=== PATIENT | male | born 1960 | race Caucasian/White ===

== ENCOUNTER → 2016-11-13 | Outpatient (CLI) | payer BC, OTHER ==
[~2016-11-13] MED LIST: ASPI1TAB66 PO; ATEN-175 PO; CHOL2000 PO; CZR50 PO; EZET10TA63 PO; GLCSC750600 PO; GLIM2TAB2 PO; GLUC1TAB59 PO; INDA1TAB3 PO; LOSA50TA6 PO; MULT-513 PO; NAPR1TAB9 PO; OMEG10007 PO; ONDA4TAB10 SL; OXYC-57 PO; TAMS0.4C38 PO
[2016-11-13 18:01] LABS: THYROID STIMULATING HORMONE 2.65 uIu/ml (0.300-4.500)
== END | disposition home or self-care (01) ==
LOC: C.LABBFT 15:00
PROVIDERS: ATTEND Internal Medicine
DX: E03.9 Hypothyroidism, unspecified (principal)

== ENCOUNTER → 2016-12-25 | Outpatient (CLI) | payer BC ==
[2016-12-25 17:14] LABS: BASO % 0.3 %; BASO ABS # 0.03 K/uL (0-0.2); COMPLETE YES; EOS % 1.6 %; HEMATOCRIT 35.6 % (42-52); IG% 0.3 %; LYMPH % 20.6 %; LYMPH ABS # 1.94 K/uL (1.2-3.4); MEAN CELL VOLUME 83.6 fL (80-100); MEAN CORPUSCULAR HEMOGLOBIN 29.3 pg (25-34); MEAN CORPUSCULAR HGB CONC 35.1 g/dl (32-36); MEAN PLATELET VOLUME 11.7 fL (7.4-10.4); MONO % 6.9 %; NEUT % 70.3 %; PLATELET COUNT 223 K/uL (130-400); RED BLOOD COUNT 4.26 M/uL (4.7-6.1); WHITE BLOOD COUNT 9.43 K/uL (4.8-10.8)
[2016-12-25 17:33] LABS: ALT/SGPT 48 U/L (12-78); BLOOD UREA NITROGEN 19 mg/dl (7-18); CALCIUM 9.1 mg/dl (8.5-10.1); CARBON DIOXIDE 29 mmol/L (21-32); CHLORIDE 103 mmol/L (98-107); CHOLESTEROL 171 mg/dl (0-200); CREATININE 0.92 mg/dl (0.60-1.40); GLUCOSE 133 mg/dl (70-99); POTASSIUM 3.9 mmol/L (3.5-5.1); SODIUM 141 mmol/L (136-145); TRIGLYCERIDES 176 mg/dl (0-150); VERY LOW DENSITY LIPOPROT CALC 35 mg/dl
[2016-12-25 17:42] LABS: ALB/GLOB RATIO 1.1 (0.9-2); ALKALINE PHOSPHATASE 80 U/L (45-117); AST/SGOT 41 U/L (15-37); CHOLESTEROL/HDL RATIO 4.9; HDL CHOLESTEROL 35 mg/dl; LDL CHOLESTEROL CALCULATED 101 mg/dl
[2016-12-25 18:03] LABS: RATIO 68.4 mcg/mg (0-30.0)
[2016-12-26 05:59] LABS: ESTIMATED AVERAGE GLUCOSE 200 mg/dl; HA1C FLAG Normal (Normal)
== END | disposition home or self-care (01) ==
LOC: C.LABBFT 14:30
PROVIDERS: ATTEND Internal Medicine
DX: E03.9 Hypothyroidism, unspecified (principal); D64.9 Anemia, unspecified; E11.65 Type 2 diabetes mellitus with hyperglycemia

== ENCOUNTER 2017-04-03 06:13 | Emergency (ER) | payer BC ==
[~2017-04-03] VITALS: Ht 180.3 cm; Wt 175.8 kg
[~2017-04-03 06:13] MED LIST changes: -GLUC1TAB59 PO; -LOSA50TA6 PO; -ONDA4TAB10 SL; -OXYC-57 PO; -TAMS0.4C38 PO
[2017-04-03 06:19] VITALS: TEMP 36.6; Ht 180.3 cm; Wt 175.8 kg
[2017-04-03] MEDS ORDERED: LOSA50TA6 PO (06:44)
[2017-04-03] MEDS ORDERED: GLUC1TAB59 PO (06:44)
[2017-04-03] MEDS ORDERED: ONDANSETRON INJ 2 MG/ML 2 ML VIAL IV STA (06:46)
[2017-04-03] MEDS ORDERED: KETOROLAC TROMETHAMINE 30 MG/ML VIAL IV STA (06:46)
[2017-04-03] MEDS ORDERED: SODIUM CHLORIDE 0.9% 1000ML 1,000 ML IV STA (06:46)
[2017-04-03 07:00] LABS: BASO % 0.2 %; BASO ABS # 0.02 K/uL (0-0.2); COMPLETE YES; EOS % 0.9 %; HEMATOCRIT 39.7 % (42-52); IG% 0.3 %; LYMPH % 12.4 %; LYMPH ABS # 1.47 K/uL (1.2-3.4); MEAN CELL VOLUME 84.3 fL (80-100); MEAN CORPUSCULAR HGB CONC 33.2 g/dl (32-36); MEAN PLATELET VOLUME 10.8 fL (7.4-10.4); MONO % 5.7 %; NEUT % 80.5 %; PLATELET COUNT 194 K/uL (130-400); RED BLOOD COUNT 4.71 M/uL (4.7-6.1); WHITE BLOOD COUNT 11.85 K/uL (4.8-10.8)
[2017-04-03 07:01] LABS: URINE APPEARANCE CLEAR (CLEAR); URINE BILIRUBIN NEG (NEG); URINE COLOR YELLOW; URINE NITRITE NEG (NEG); URINE PH 5.5 (4.5-7.5); URINE SPECIFIC GRAVITY 1.024 (1.000-1.030); UROBILINOGEN NEG (NEG); ZZUR CULT IF INDIC CLEAN CATCH NO
[2017-04-03 07:02] LABS: MANUAL MICROSCOPIC REQUIRED? NO; REVIEW REQ? NO
[2017-04-03 07:09] LABS: ALT/SGPT 45 U/L (12-78); AST/SGOT 40 U/L (15-37); BLOOD UREA NITROGEN 25 mg/dl (7-18); BUN/CREATININE RATIO 18.9 (10-20); CALCIUM 9.6 mg/dl (8.5-10.1); CARBON DIOXIDE 27 mmol/L (21-32); CHLORIDE 104 mmol/L (98-107); GLUCOSE 198 mg/dl (70-99); POTASSIUM 4.2 mmol/L (3.5-5.1); SODIUM 138 mmol/L (136-145)
[2017-04-03 07:12] LABS: ALKALINE PHOSPHATASE 87 U/L (45-117)
--- NOTE | 2017-04-03 07:29 | DIAGNOSTIC IMAGING REPORT ---
ABD/PELVIS WITHOUT FOR STONE HISTORY:56 [place] pain COMPARISON: None available. TECHNIQUE: Multiple axial CT images of the abdomen and pelvis were obtained without the use of IV contrast. FINDINGS: Morbid obesity is noted with portions of the patient's anatomy outside the field of view. The lung bases are clear. There is no gross pneumoperitoneum. Coronary arterial calcifications are partially imaged. The liver is enlarged and there is diffuse fatty infiltration. The spleen and adrenal glands are unremarkable. There is moderate pancreatic atrophy. Multiple layering gallstones are seen within the gallbladder lumen extending into the neck without CT evidence of acute cholecystitis. No biliary ductal dilatation is identified. There is a 5 x 6 x 6 mm stone within the mid left ureter at level of L5-S1. Additionally, there is a 7 x 5 x 7 mm calculus of the distal left ureter just proximal to the ureterovesicular junction. These stones cause associated mild to moderate obstructive uropathy. There are multiple additional stones bilaterally with approximately 5 on the left measuring up to 8 mm in approximately 5 on the right measuring up to 9 mm. Urinary bladder is collapsed. There is atherosclerosis of the aorta. There is no bowel obstruction. Scattered noninflamed colonic diverticula are noted. The appendix appears normal. Soft tissues are unremarkable. Multilevel discogenic degeneration and facet arthropathy is present of the spine. IMPRESSION: 1. There are two stones within the left ureter, a 6 mm calculus within the mid left ureter and a 7 mm calculus of the distal left ureter just proximal to the ureterovesicular junction causing mild to moderate obstructive uropathy. 2. Multiple additional nonobstructing renal calculi are present bilaterally as above. 3. Colonic diverticulosis without diverticulitis. 4. Hepatosteatosis with hepatomegaly. 5. Cholelithiasis. The above report was generated using voice recognition software. It may contain grammatical, syntax or spelling errors. Electronically signed by: Marito Ho 04/03/2017 7:27 AM Dictated Date/Time: 04/03/2017 7:17 AM
[2017-04-03] MEDS ORDERED: TAMS0.4C38 PO (08:38)
[2017-04-03] MEDS ORDERED: ONDA4TAB10 SL (08:38)
[2017-04-03] MEDS ORDERED: OXYC-57 PO (08:38)
--- NOTE | 2017-04-03 08:43 | EMERGENCY ROOM VISIT NOTE ---
History Report prepared by Cici: Tammy Underwood Under the Supervision of: Dr. Merrick Israel D.O. First contact with patient: 06:38 Chief Complaint: ABDOMINAL PAIN Stated Complaint: ABD PAIN Nursing Triage Summary: Pt started with lower left sided abdomen/flank pain yesterday evening radiates to back, continued throughout night. Pt states it feels like a kidney stone. History of Present Illness The patient is a 56 year old male who presents to the Emergency Room with complaints of constant left sided abdominal pain starting yesterday. He has pain radiation to the left flank. He has worsening pain with lying down and sitting. He denies any worsening pain with movement. He has a history of similar pain occurring about a week ago. He also reports decreased urinary output. The patient has a history of kidney stones but notes his current pain is different. He denies fevers, nausea, vomiting, rashes, or any other complaints. Source of History: patient Onset: yesterday Position: abdomen (left sided ) Timing: constant Modifying Factors (Worsening): other (lying down and sitting) Associated Symptoms: + urinary symptoms (decreased urinary output), No fevers, No nausea, No vomiting, No rash Review of Systems See HPI for pertinent positives & negatives. A total of 10 systems reviewed and were otherwise negative. Past Medical & Surgical Medical Problems: (1) DIAB ROBINSON WO COMPL, TYPE II OR UNSPEC TYPE, NOT UNCNTRLD (2) HYPERLIPIDEMIA NEC/NOS (3) Morbid obesity Family History Diabetes mellitus Heart disease Hypertension Kidney disease Kidney stones Social History Smoking Status: Never Smoker Alcohol Use: none Marital Status: Housing Status: lives with family Occupation Status: employed Current/Historical Medications Scheduled Aspirin (Ec-81 Aspirin), 81 TAB PO AMPM Atenolol (Tenormin), 100 MG PO QAM Cholecalciferol (Vitamin D3), 2,000 MG PO QPM Ezetimibe (Zetia), 10 MG PO QPM Fish Oil ([place]-3), 1 CAP PO BID Glimepiride (Glimepiride), 1 TAB PO BID Glucosamine-Chondroitin (Ra Glucosamine/Chondroiti 750-600 mg), 1 TAB PO BID Indapamide (Lozol), 1.25 MG PO QAM Losartan Potassium (Cozaar), 50 MG PO QAM Multivitamins/Minerals (Mvi With Minerals), 1 TAB PO QAM Naproxen (Aleve), 220 MG PO BID Ondasetron Odt (Zofran Odt), 4 MG SL Q6H Tamsulosin Hcl (Flomax), 0.4 MG PO HS Scheduled PRN Oxycodone/Acetaminophen 5MG/325MG (Percocet 5MG/325MG), 1 TAB PO Q6H PRN for Pain Allergies Coded Allergies: Fabric Softeners (Verified Allergy, Unknown, "SNUGGLES"-COULDN'T REMEMBER , 04/03/17) Metformin (Verified Adverse Reaction, Unknown, DIARRHEA, 04/03/17) Mometasone (Verified Adverse Reaction, Unknown, NOSE BLEEDS;DRYNESS, ) Simvastatin (Verified Adverse Reaction, Unknown, COUGH, 04/03/17) Physical Exam Vital Signs Date Time Temp Pulse Resp B/P (MAP) Pulse Ox O2 Delivery O2 Flow Rate FiO2 04/03/17 07:28 66 18 151/78 97 Room Air 04/03/17 06:19 36.6 69 20 200/88 95 Room Air Physical Exam CONSTITUTIONAL/VITAL SIGNS: Reviewed / noted above. GENERAL: Non-toxic in appearance. INTEGUMENTARY: Warm, dry, and [place]. HEAD: Normocephalic. EYES: without scleral icterus or trauma. ENT/OROPHARYNX: clear and moist. LYMPHADENOPATHY/NECK: Is supple without lymphadenopathy or meningismus. RESPIRATORY: Lungs clear and equal. CARDIOVASCULAR: Regular rate and rhythm. GI/ABDOMEN: Soft and nontender. No organomegaly or pulsatile mass. No rebound or guarding. Normal bowel sounds. EXTREMITIES: Warm and well perfused. BACK: No CVA tenderness. NEUROLOGICAL: Intact without focal deficits. PSYCHIATRIC: normal affect. MUSCULOSKELETAL: Normally developed with good muscle tone. Medical Decision & Procedures ER Provider Diagnostic Interpretation: CT results as stated below per my review and radiologist interpretation: ABD/PELVIS WITHOUT FOR STONE HISTORY:56 [place] pain COMPARISON: None available. TECHNIQUE: Multiple axial CT images of the abdomen and pelvis were obtained without the use of IV contrast. FINDINGS: Morbid obesity is noted with portions of the patient's anatomy outside the field of view. The lung bases are clear. There is no gross pneumoperitoneum. Coronary arterial calcifications are partially imaged. The liver is enlarged and there is diffuse fatty infiltration. The spleen and adrenal glands are unremarkable. There is moderate pancreatic atrophy. Multiple layering gallstones are seen within the gallbladder lumen extending into the neck without CT evidence of acute cholecystitis. No biliary ductal dilatation is identified. There is a 5 x 6 x 6 mm stone within the mid left ureter at level of L5-S1. Additionally, there is a 7 x 5 x 7 mm calculus of the distal left ureter just proximal to the ureterovesicular junction. These stones cause associated mild to moderate obstructive uropathy. There are multiple additional stones bilaterally with approximately 5 on the left measuring up to 8 mm in approximately 5 on the right measuring up to 9 mm. Urinary bladder is collapsed. There is atherosclerosis of the aorta. There is no bowel obstruction. Scattered noninflamed colonic diverticula are noted. The appendix appears normal. Soft tissues are unremarkable. Multilevel discogenic degeneration and facet arthropathy is present of the spine. IMPRESSION: 1. There are two stones within the left ureter, a 6 mm calculus within the mid left ureter and a 7 mm calculus of the distal left ureter just proximal to the ureterovesicular junction causing mild to moderate obstructive uropathy. 2. Multiple additional nonobstructing renal calculi are present bilaterally as above. 3. Colonic diverticulosis without diverticulitis. 4. Hepatosteatosis with hepatomegaly. 5. Cholelithiasis. The above report was generated using voice recognition software. It may contain grammatical, syntax or spelling errors. Electronically signed by: Marito Ho 04/03/2017 7:27 AM Dictated Date/Time: 04/03/2017 7:17 AM X ray results and stated below per my interpretation and radiology interpretation. KUB CLINICAL HISTORY: for stones nephrocalcinosis COMPARISON STUDY: 04/03/2017 FINDINGS: Bilateral nephrocalcinosis. Probable gallstones. Calcification appears described within the left ureter are suboptimally identified on this exam due to overlying bowel content. Bowel pattern is nonobstructive. IMPRESSION: Bilateral nephrocalcinosis. Gallstones. Nonobstructive bowel pattern. Suboptimal visibility of the course of the left ureter due to overlying bowel content. Electronically signed by: Rory Milan M.D. 04/03/2017 8:54 AM Dictated Date/Time: 04/03/2017 8:50 AM Laboratory Results 04/03/17 06:35 Red Blood Count 4.71, Mean Corpuscular Volume 84.3, Mean Corpuscular Hemoglobin 28.0, Mean Corpuscular Hemoglobin Concent 33.2, Mean Platelet Volume 10.8, Neutrophils (%) (Auto) 80.5, Lymphocytes (%) (Auto) 12.4, Monocytes (%) (Auto) 5.7, Eosinophils (%) (Auto) 0.9, Basophils (%) (Auto) 0.2, Neutrophils # (Auto) 9.55, Lymphocytes # (Auto) 1.47, Monocytes # (Auto) 0.67, Eosinophils # (Auto) 0.11, Basophils # (Auto) 0.02 04/03/17 06:35 Test 04/03/17 06:35 White Blood Count 11.85 K/uL (4.8-10.8) Red Blood Count 4.71 M/uL (4.7-6.1) Hemoglobin 13.2 g/dL (14.0-18.0) Hematocrit 39.7 % (42-52) Mean Corpuscular Volume 84.3 fL (80-100) Mean Corpuscular Hemoglobin 28.0 pg (25-34) Mean Corpuscular Hemoglobin Concent 33.2 g/dl (32-36) Platelet Count 194 K/uL (130-400) Mean Platelet Volume 10.8 fL (7.4-10.4) Neutrophils (%) (Auto) 80.5 % Lymphocytes (%) (Auto) 12.4 % Monocytes (%) (Auto) 5.7 % Eosinophils (%) (Auto) 0.9 % Basophils (%) (Auto) 0.2 % Neutrophils # (Auto) 9.55 K/uL (1.4-6.5) Lymphocytes # (Auto) 1.47 K/uL (1.2-3.4) Monocytes # (Auto) 0.67 K/uL (0.11-0.59) Eosinophils # (Auto) 0.11 K/uL (0-0.5) Basophils # (Auto) 0.02 K/uL (0-0.2) RDW Standard Deviation 41.9 fL (36.4-46.3) RDW Coefficient of Variation 13.6 % (11.5-14.5) Immature Granulocyte % (Auto) 0.3 % Immature Granulocyte # (Auto) 0.03 K/uL (0.00-0.02) Urine Color YELLOW Urine Appearance CLEAR (CLEAR) Urine pH 5.5 (4.5-7.5) Urine Specific [place] 1.024 (1.000-1.030) Urine Protein NEG (NEG) Urine Glucose (UA) NEG (NEG) Urine Ketones NEG (NEG) Urine Occult Blood 1+ (NEG) Urine Nitrite NEG (NEG) Urine Bilirubin NEG (NEG) Urine Urobilinogen NEG (NEG) Urine Leukocyte Esterase NEG (NEG) Urine WBC (Auto) 1-5 /hpf (0-5) Urine RBC (Auto) 0-4 /hpf (0-4) Urine Hyaline Casts (Auto) 1-5 /lpf (0-5) Urine Epithelial Cells (Auto) 5-10 /lpf (0-5) Urine Bacteria (Auto) NEG (NEG) Anion Gap 7.0 mmol/L (3-11) Est Creatinine Clear Calc Drug Dose 103.6 ml/min Estimated GFR () 70.7 Estimated GFR (Non- 61.0 BUN/Creatinine Ratio 18.9 (10-20) Calcium Level 9.6 mg/dl (8.5-10.1) Total Bilirubin 0.5 mg/dl (0.2-1) Direct Bilirubin < 0.1 mg/dl (0-0.2) Aspartate Amino Transf (AST/SGOT) 40 U/L (15-37) Alanine Aminotransferase (ALT/SGPT) 45 U/L (12-78) Alkaline Phosphatase 87 U/L (45-117) Total Protein 7.6 gm/dl (6.4-8.2) Albumin 4.0 gm/dl (3.4-5.0) Lipase 150 U/L (73-393) Laboratory results as stated above per my review. Medications Administered Medications (Trade) Dose Ordered Sig/Melvi Route Start Time Stop Time Status Last Admin Dose Admin Sodium Chloride 1,000 ml @ 999 mls/hr Q1H1M STAT IV 04/03/17 06:46 04/03/17 07:46 DC 04/03/17 06:55 999 MLS/HR Ondansetron HCl (Zofran Inj) 4 mg NOW STAT IV 04/03/17 06:46 04/03/17 06:50 DC 04/03/17 06:55 4 MG Ketorolac Tromethamine (Toradol Inj) 30 mg NOW STAT IV 04/03/17 06:46 04/03/17 06:50 DC 04/03/17 06:55 30 MG ED Course 0638: Previous medical records were reviewed. The patient was evaluated in room B10. A complete history and physical examination was performed. 0646: Toradol Inj 30 mg IV, Zofran Inj 4 mg IV, Sodium Chloride 1000 ml @ 999 mls/hr IV 0757: I reevaluated the patient. He currently denies any pain. 0816: I discussed the patient's case with Dr. Lara, urologist with [facility]. He recommended having the patient follow up as an outpatient. 0822: On reevaluation, the patient is resting comfortably. I discussed the results and findings with the patient. He verbalized agreement of the treatment plan. He was discharged home. Medical Decision Medication Reconciliation: I attest that I have personally reviewed the patient' s current medication list. Blood pressure Screening: Patient was found to have an elevated blood pressure and was referred to their primary doctor for recheck and further treatment. Differential considered: pancreatitis, hepatitis, or acute cholecystitis, AAA, UTI, pyelonephritis, kidney stones, appendicitis, diverticulitis, shingles, bowel obstruction mesenteric ischemia, intussusception,hernia, testicular torsion. This is a 56 her old male who presents to the ED with a chief complaint of left flank pain. The patient states he had some flank component but a week ago and then again had some last night. He states that his pain is mild to moderate. He has also reported some decreased urination. Nothing makes his symptoms worse but it seemed to be improved with walking. Initial blood pressure 200/ 88. Repeat blood pressure was 151/78. Patient's elevated blood pressure was probably due to pain. His CBC is unremarkable. BUN is 25, urine did not show infection. A CT scan reveals a 7 mm distal ureteral stone and a 6 mm midureteral stone on the left. These are causing some moderate obstructive changes. The patient was treated with IV Toradol and IV Zofran as well as IV fluids. His symptoms did improve with this. I spoke with Dr. Lara about the patient. He will have the patient follow-up as an outpatient. The patient will be discharged on pain medication, nausea medication and Flomax. A KUB was also done per request of Dr. Lara. Consults Time Called: 0759 Consulting Physician: Dr. Lara, urologist with [facility] Returned Call: 0816 I discussed the patient's case with Dr. Lara, urologist with [facility]. He recommended having the patient follow up as an outpatient. Impression Primary Impression: Kidney stone Additional Impressions: Renal colic on left side Ureteral stone Hydronephrosis Scribe Attestation The scribe's documentation has been prepared under my direction and personally reviewed by me in its entirety. I confirm that the note above accurately reflects all work, treatment, procedures, and medical decision making performed by me. Departure Information Dispostion Home / Self-Care Prescriptions Oxycodone/Acetaminophen 5MG/325MG (PERCOCET 5MG/325MG) Tab 1 TAB PO Q6H Y for Pain, #20 TAB Prov: Merrick Israel D.O. 04/03/17 Ondasetron Odt (ZOFRAN ODT) 4 Mg Tab 4 MG SL Q6H for Nausea, #10 TAB Prov: Merrick Israel D.O. 04/03/17 Tamsulosin Hcl (FLOMAX) 0.4 Mg Cap 0.4 MG PO HS, #15 CAP Prov: Merrick Israel D.O. 04/03/17 Referrals Bashir Alegre M.D. (PCP) Lamonte Lara MD, Urology Forms Call Back Authorization, HOME CARE DOCUMENTATION FORM, IMPORTANT VISIT INFORMATION Patient Instructions My [facility] Additional Instructions Follow-up with your doctor for further care and evaluation in 1-2 days. Return to the emergency department for worsening or new symptoms or any concerns. You have been examined and treated today on an emergency basis only. This is not a substitute for, or an effort to provide, complete comprehensive medical care. It is impossible to recognize and treat all injuries or illnesses in a single emergency department visit. It is therefore important that you follow up closely with your doctor. Call as soon as possible for an appointment. Percocet as prescribed. No driving within 6 hours of use. Do not take additional Tylenol while taking Percocet. Zofran: Allow one tablet to dissolve under the tongue every 6 hours as needed for nausea or vomiting. Take ibuprofen 600 mg every 6 hours as needed for pain. Flomax as prescribed. Strain urine for stone. Follow-up with Dr. Lara/urology. Call today for an appointment. Problem Qualifiers
--- NOTE | 2017-04-03 08:55 | DIAGNOSTIC IMAGING REPORT ---
KUB CLINICAL HISTORY: for stones nephrocalcinosis COMPARISON STUDY: 04/03/2017 FINDINGS: Bilateral nephrocalcinosis. Probable gallstones. Calcification appears described within the left ureter are suboptimally identified on this exam due to overlying bowel content. Bowel pattern is nonobstructive. IMPRESSION: Bilateral nephrocalcinosis. Gallstones. Nonobstructive bowel pattern. Suboptimal visibility of the course of the left ureter due to overlying bowel content. Electronically signed by: Rory Milan M.D. 04/03/2017 8:54 AM Dictated Date/Time: 04/03/2017 8:50 AM
[2017-04-03 08:59] VITALS: BP 172/77; PULSE 60; O2SAT 97
== END 2017-04-03 09:00 | disposition home or self-care (01) ==
LOC: C.EDB 06:14
DX: N13.2 Hydronephrosis with renal and ureteral calculous obstruction (principal); N23 Unspecified renal colic; E11.9 Type 2 diabetes mellitus without complications; E78.5 Hyperlipidemia, unspecified; E66.01 Morbid (severe) obesity due to excess calories; Z68.43 Body mass index [BMI] 50.0-59.9, adult; Z83.3 Family history of diabetes mellitus; Z82.49 Family history of ischemic heart disease and other diseases of the circulatory system; Z87.442 Personal history of urinary calculi; Z79.82 Long term (current) use of aspirin; Z79.899 Other long term (current) drug therapy

== ENCOUNTER → 2017-04-08 | Outpatient (CLI) | payer BC ==
[~2017-04-08] MED LIST changes: -CZR50 PO; -GLCSC750600 PO; +GLUC1TAB59 PO; +LOSA50TA6 PO; +ONDA4TAB10 SL; +OXYC-57 PO; +TAMS0.4C38 PO
== END | disposition home or self-care (01) ==
LOC: C.LABSPEC 17:23
PROVIDERS: ATTEND Urology
DX: N20.0 Calculus of kidney (principal)

== ENCOUNTER → 2017-04-30 | Outpatient (CLI) | payer BC ==
[~2017-04-30] MED LIST changes: -TAMS0.4C38 PO
--- NOTE | 2017-04-30 14:10 | DIAGNOSTIC IMAGING REPORT ---
KUB CLINICAL HISTORY: CALCULUS OF KIDNEY nephrocalcinosis COMPARISON STUDY: 04/03/2017 FINDINGS: Bilateral renal calcifications unchanged in size as well as number compared to the prior exam. Multiple gallstones. Nonobstructive bowel pattern. IMPRESSION: Bilateral nephrocalcinosis unchanged from the prior study. The above report was generated using voice recognition software. It may contain grammatical, syntax or spelling errors. Electronically signed by: Rory Milan M.D. 04/30/2017 2:08 PM Dictated Date/Time: 04/30/2017 2:07 PM
== END | disposition home or self-care (01) ==
LOC: C.RAD1850 13:54
PROVIDERS: ATTEND Urology
DX: N20.0 Calculus of kidney (principal)

== ENCOUNTER → 2017-05-28 | Outpatient (CLI) | payer BC ==
[2017-05-28 17:47] LABS: ALT/SGPT 45 U/L (12-78); AST/SGOT 34 U/L (15-37); BLOOD UREA NITROGEN 16 mg/dl (7-18); CALCIUM 9.5 mg/dl (8.5-10.1); CARBON DIOXIDE 28 mmol/L (21-32); CHLORIDE 104 mmol/L (98-107); CREATININE 0.97 mg/dl (0.60-1.40); GLUCOSE 115 mg/dl (70-99); POTASSIUM 3.7 mmol/L (3.5-5.1); SODIUM 139 mmol/L (136-145)
[2017-05-28 17:49] LABS: BASO % 0.2 %; BASO ABS # 0.02 K/uL (0-0.2); COMPLETE YES; EOS % 1.8 %; IG% 0.5 %; LYMPH % 21.9 %; MEAN CELL VOLUME 86.7 fL (80-100); MEAN CORPUSCULAR HEMOGLOBIN 29.4 pg (25-34); MEAN CORPUSCULAR HGB CONC 33.9 g/dl (32-36); MEAN PLATELET VOLUME 11.4 fL (7.4-10.4); MONO % 7.2 %; NEUT % 68.4 %; PLATELET COUNT 189 K/uL (130-400); RED BLOOD COUNT 4.15 M/uL (4.7-6.1); WHITE BLOOD COUNT 8.22 K/uL (4.8-10.8)
[2017-05-28 17:57] LABS: ALB/GLOB RATIO 1.1 (0.9-2); ALKALINE PHOSPHATASE 88 U/L (45-117); CHOLESTEROL 166 mg/dl (0-200); HDL CHOLESTEROL 33 mg/dl; LDL CHOLESTEROL CALCULATED 103 mg/dl; TRIGLYCERIDES 151 mg/dl (0-150); VERY LOW DENSITY LIPOPROT CALC 30 mg/dl
[2017-05-29 06:33] LABS: ESTIMATED AVERAGE GLUCOSE 189 mg/dl; HA1C FLAG Normal (Normal)
== END | disposition home or self-care (01) ==
LOC: C.LABBFT 13:40
PROVIDERS: ATTEND Internal Medicine
DX: E11.29 Type 2 diabetes mellitus with other diabetic kidney complication (principal)

== ENCOUNTER → 2017-09-24 | Outpatient (CLI) | payer BC ==
[2017-09-24 17:30] LABS: BASO % 0.2 %; BASO ABS # 0.02 K/uL (0-0.2); COMPLETE YES; EOS % 2.2 %; HEMATOCRIT 38.3 % (42-52); IG% 0.4 %; LYMPH % 20.3 %; MEAN CELL VOLUME 85.5 fL (80-100); MEAN CORPUSCULAR HEMOGLOBIN 29.2 pg (25-34); MEAN CORPUSCULAR HGB CONC 34.2 g/dl (32-36); MEAN PLATELET VOLUME 12.2 fL (7.4-10.4); MONO % 6.2 %; NEUT % 70.7 %; PLATELET COUNT 179 K/uL (130-400); RED BLOOD COUNT 4.48 M/uL (4.7-6.1); WHITE BLOOD COUNT 9.34 K/uL (4.8-10.8)
[2017-09-24 18:09] LABS: ALT/SGPT 43 U/L (12-78); BLOOD UREA NITROGEN 27 mg/dl (7-18); BUN/CREATININE RATIO 26.4 (10-20); CALCIUM 9.5 mg/dl (8.5-10.1); CARBON DIOXIDE 29 mmol/L (21-32); CHLORIDE 101 mmol/L (98-107); CHOLESTEROL 193 mg/dl (0-200); CREATININE 1.02 mg/dl (0.60-1.40); GLUCOSE 113 mg/dl (70-99); POTASSIUM 3.8 mmol/L (3.5-5.1); SODIUM 137 mmol/L (136-145); TRIGLYCERIDES 153 mg/dl (0-150); VERY LOW DENSITY LIPOPROT CALC 31 mg/dl
[2017-09-24 18:19] LABS: ALB/GLOB RATIO 1.2 (0.9-2); ALKALINE PHOSPHATASE 81 U/L (45-117); AST/SGOT 35 U/L (15-37); CHOLESTEROL/HDL RATIO 5.8; HDL CHOLESTEROL 33 mg/dl; LDL CHOLESTEROL CALCULATED 129 mg/dl; PROSTATE SPECIFIC ANTIGEN 0.577 ng/ml (0.000-4.000)
[2017-09-25 06:37] LABS: ESTIMATED AVERAGE GLUCOSE 186 mg/dl; HA1C FLAG Normal (Normal)
== END | disposition home or self-care (01) ==
LOC: C.LABBFT 13:57
PROVIDERS: ATTEND Internal Medicine
DX: E11.29 Type 2 diabetes mellitus with other diabetic kidney complication (principal); Z12.5 Encounter for screening for malignant neoplasm of prostate; D64.9 Anemia, unspecified; E03.9 Hypothyroidism, unspecified

== ENCOUNTER → 2017-11-16 | Outpatient (CLI) | payer BC ==
[~2017-11-16] MED LIST changes: -ONDA4TAB10 SL; -OXYC-57 PO
--- NOTE | 2017-11-16 10:01 | DIAGNOSTIC IMAGING REPORT ---
KUB CLINICAL HISTORY: Nephrolithiasis. FINDINGS: 2 AP supine abdominal radiographs are compared to study dated 04/30/2017 and correlated with abdominal CT dated 04/03/2017. Numerous calcified gallstones are seen in the right upper quadrant. There are numerous bilateral nonobstructing renal calculi. At least 2 stones are seen in the right kidney and at least 4 stones are seen in the left kidney. These measure up to 10 mm and have not significantly changed from 04/30/2017. There is no radiographic evidence of ureteral stone. No bowel obstruction is seen. The bony structures appear intact. IMPRESSION: 1. Bilateral nonobstructing renal calculi are not significantly changed from 04/30/2017. 2. Cholelithiasis. Electronically signed by: Bright Edwards M.D. 11/16/2017 10:00 AM Dictated Date/Time: 11/16/2017 9:59 AM
== END | disposition home or self-care (01) ==
LOC: C.RAD1850 09:09
PROVIDERS: ATTEND Urology
DX: N20.0 Calculus of kidney (principal)

== ENCOUNTER → 2018-01-20 | Outpatient (CLI) | payer BC ==
--- NOTE | 2018-01-20 14:27 | DIAGNOSTIC IMAGING REPORT ---
LUMBAR SPINE 7 VIEWS with flexion and extension HISTORY: LOWER BACK PAIN COMPARISON: KUB 11/16/2017. FINDINGS: There is no fracture. No subluxation. Bilateral nephrolithiasis is again noted. The sacrum is intact. Mild facet osteoarthritis throughout the lumbar spine. Minimal anterior wedging from T10 through T12 appears to be unchanged. This is likely chronic. Large anterior osteophytes within the lower thoracic and upper lumbar spine. Abnormal lucency at the T12-L1 disc space. This could represent a fracture through an osteophyte. This is nondisplaced. Moderate to space narrowing at L3-L4, L4-L5, and L5-S1 with associated small endplate osteophytes. Mild disc space narrowing at L2-L3. Vertebral body heights within the lumbar spine are intact. Alignment remains unchanged throughout flexion and extension. IMPRESSION: 1. Abnormal linear lucency overlying the T12-L1 disc space. This favors a nondisplaced fracture through an osteophyte. Dedicated lumbar spine CT is recommended for further evaluation. 2. Alignment remains intact throughout flexion and extension. 3. Degenerative changes as described above. 4. Bilateral nephrolithiasis. 5. These findings were called to the referring physician's office following dictation. Electronically signed by: Clayton Haddad M.D. 01/20/2018 2:26 PM Dictated Date/Time: 01/20/2018 2:21 PM
== END | disposition home or self-care (01) ==
LOC: C.RAD1850 13:17
PROVIDERS: ATTEND Internal Medicine
DX: M54.5 Low back pain (principal); N20.0 Calculus of kidney

== ENCOUNTER 2018-02-06 16:48 | Observation (INO) | payer BC ==
[~2018-02-06] VITALS: Ht 180.3 cm; Wt 176.7 kg
[2018-02-06] MEDS ORDERED: MELO7.5T5 PO (17:28)
[2018-02-06] MEDS ORDERED: CYAN10005 PO (17:28)
[2018-02-06] MEDS ORDERED: SITA100T3 PO (17:28)
[2018-02-06] MEDS ORDERED: INSDGIPEN SC (17:28)
[2018-02-06 17:53] LABS: BASO % 0.2 %; BASO ABS # 0.03 K/uL (0-0.2); EOS % 0.4 %; EOS ABS # 0.06 K/uL (0-0.5); HEMATOCRIT 37.8 % (42-52); HEMOGLOBIN 13.3 g/dL (14.0-18.0); IG# 0.05 K/uL (0.00-0.02); LYMPH % 9.2 %; LYMPH ABS # 1.29 K/uL (1.2-3.4); MEAN CORPUSCULAR HEMOGLOBIN 29.6 pg (25-34); MEAN CORPUSCULAR HGB CONC 35.2 g/dl (32-36); MEAN PLATELET VOLUME 10.9 fL (7.4-10.4); MONO % 4.9 %; MONO ABS # 0.68 K/uL (0.11-0.59); NEUT % 84.9 %; NEUT ABS # 11.89 K/uL (1.4-6.5); PLATELET COUNT 198 K/uL (130-400); RED CELL DISTRIBUTION WIDTH CV 13.6 % (11.5-14.5); RED CELL DISTRIBUTION WIDTH SD 41.1 fL (36.4-46.3)
[2018-02-06] MEDS ORDERED: MoRPHine SULFATE 4 MG/ML 1 ML CARP\\VIAL IV STA (18:24)
--- NOTE | 2018-02-06 18:24 | DIAGNOSTIC IMAGING REPORT ---
PELVIS NO IV/ORAL CONT (CT) HISTORY: 57 years-old Male Low back pain, radiating to R hip chronic low back pain with radiation into the right hip. No reported trauma. COMPARISON: CT abdomen and pelvis 04/03/2017, lumbar spine CT of same day. TECHNIQUE: Multiple axial CT images of the pelvis were obtained without the use of IV contrast. A dose lowering technique was used consistent with the principals of TOMMY. FINDINGS: Degenerative changes of the lumbar spine are discussed separately on the CT lumbar spine exam of same day. Moderate degenerative changes about the bilateral SI joints. No acute fracture or dislocation is identified. No sacral insufficiency fracture. Iliac bones, superior and inferior pubic rami appear intact. Subcortical cystic changes about the pubic symphysis. Mild osteoarthritis about the bilateral femoral acetabular joints. Bone mineralization is within normal limits. Atherosclerosis of the aortoiliac vasculature. Colonic diverticulosis without diverticulitis. Fecal material of the distal ileum suggests delayed bowel transit. The appendix is not visualized. No inflammatory changes or ascites of the pelvis. No pathologic adenopathy. The musculature and soft tissues appear to be within normal limits. IMPRESSION: 1. No acute fracture or dislocation. 2. Degenerative changes about the pelvis and bilateral hips as above. 3. Colonic diverticulosis without diverticulitis. The above report was generated using voice recognition software. It may contain grammatical, syntax or spelling errors. Electronically signed by: Marito Ho M.D. 02/06/2018 6:23 PM Dictated Date/Time: 02/06/2018 6:19 PM
[2018-02-06 18:26] LABS: ALBUMIN 3.9 gm/dl (3.4-5.0); CALCIUM 9.5 mg/dl (8.5-10.1); CREATININE 1.25 mg/dl (0.60-1.40); POTASSIUM 4.4 mmol/L (3.5-5.1)
[2018-02-06 18:29] LABS: TOTAL PROTEIN 8.3 gm/dl (6.4-8.2)
--- NOTE | 2018-02-06 18:37 | EMERGENCY ROOM VISIT NOTE ---
History First contact with patient: 16:51 Chief Complaint: BACK PAIN Stated Complaint: BACK PAIN History of Present Illness The patient is a 57 year old male who presents to the Emergency Room via private vehicle with complaints of "back pain". The patient states that he first developed back pain in early December. He states that it is been progressing and he is followed with Dr. Avila. He states that he has had x- rays which show degeneration and believe that this could be stemming from his weight. He notes that he has been doing well up until today when the back pain worsened when he was on the toilet. He could not remove himself from the toilet. Ambulance was called. He was brought here for evaluation. He was given morphine in route. He notes some relief of his pain. There is no chest pain or shortness of breath. No fevers or chills. No lower extremity weakness , bowel or bladder incontinence, numbness or tingling in the genital region. He points to the low back as the location of pain that radiates also to the right hip. Review of Systems A complete 10-point Review of Systems was discussed with the patient, with pertinent positives and negatives listed in the History of Present Illness. All remaining Review of Systems questions can be considered negative unless otherwise specified. Past Medical/Surgical History Medical Problems: (1) Back pain, acute (2) DIAB ROBINSON WO COMPL, TYPE II OR UNSPEC TYPE, NOT UNCNTRLD (3) HYPERLIPIDEMIA NEC/NOS (4) Morbid obesity Family History Diabetes mellitus Heart disease Hypertension Kidney disease Kidney stones Social History Smoking Status: Never Smoker Alcohol Use: none Marital Status: Housing Status: lives with family Occupation Status: employed Current/Historical Medications Scheduled Aspirin (Ec-81 Aspirin), 81 TAB PO AMPM Atenolol (Tenormin), 100 MG PO QAM Cholecalciferol (Vitamin D3), 2,000 MG PO QPM Cyanocobalamin (Vitamin B-12), 1,000 MCG PO DAILY Ezetimibe (Zetia), 10 MG PO QPM Fish Oil ([place]-3), 1 CAP PO DAILY Glimepiride (Glimepiride), 4 MG PO BID Glucosamine-Chondroitin (Ra Glucosamine/Chondroiti 750-600 mg), 1 TAB PO BID Indapamide (Lozol), 1.25 MG PO QAM Insulin Glargine (Lantus Solostar), 50 UNITS SC QAM Losartan Potassium (Cozaar), 50 MG PO QAM Meloxicam (Mobic), 7.5 MG PO DAILY Multivitamins/Minerals (Mvi With Minerals), 1 TAB PO QAM Sitagliptin Phosphate (Januvia), 100 MG PO DAILY Physical Exam Vital Signs Date Time Temp Pulse Resp B/P (MAP) Pulse Ox O2 Delivery O2 Flow Rate FiO2 02/06/18 21:59 65 18 144/78 98 Room Air 02/06/18 20:09 63 18 129/61 98 Room Air 02/06/18 18:39 66 02/06/18 18:31 98 Room Air 02/06/18 18:31 64 18 131/66 95 Room Air 02/06/18 16:57 37.0 69 18 157/71 91 Room Air Physical Exam VITAL SIGNS - Vital signs and nursing notes were reviewed. Stable. GENERAL -57-year-old male appearing his stated age who is in no acute distress. Communicates well with provider and answers questions appropriately. SKIN - Without rashes. No meningeal or petechial rash. HEAD - NC/AT. EYES - Sclera anicteric. EARS - No deformities of external structures noted on gross examination bilaterally. NOSE - Midline and without cyanosis. No epistaxis or purulent drainage noted. MOUTH/OROPHARYNX - Without perioral cyanosis. LUNGS - Chest wall symmetric without accessory muscle use, intercostals retractions, or central cyanosis. Normal vesicular breath sounds CTA B/L. No wheezes, rales, or rhonchi appreciated. CARDIAC - RRR with S1/S2. No murmur, rubs, or gallops appreciated. ABDOMEN - Abdominal contour normal without pulsations or visible masses. BS normoactive all four quadrants. No tenderness, palpable masses, hepatosplenomegaly, or ascites noted. MUSCULOSKELETAL: There is reproducible tenderness in the lower lumbar spine with palpation that extends into the musculature towards the right hip region. EXTREMITIES - +5/5 strength noted in UE/LE bilaterally. NEUROLOGIC - Cranial nerves II through XII grossly intact. Sensory intact to light touch throughout. PSYCH - A&O, and cooperates fully with examiner. Pt is very pleasant and interacts well with examiner. Medical Decision & Procedures ER Provider Diagnostic Interpretation: LUMBAR SPINE WITHOUT HISTORY: 57 years-old Male Low back pain, radiating to R hip chronic low back pain with radiation into the right hip COMPARISON: CT pelvis of same day TECHNIQUE: Multiple axial CT images of the lumbar spine were obtained without the use of IV contrast. A dose lowering technique was used consistent with the principals of ALARA. FINDINGS: Moderate degenerative changes about the bilateral SI joints. No acute fracture or subluxation. Multilevel degenerative changes as below. Atherosclerosis of the aorta without aneurysm. No pathologic adenopathy. Partially imaged cholelithiasis. Multiple nonobstructing nephrolithiasis seen bilaterally. T12-L1: Mild intervertebral disc space narrowing with spondylitic spurring and mild facet arthrosis. No central canal or foraminal narrowing. L1-L2: Mild intervertebral disc space narrowing and spondylitic spurring with mild facet arthrosis. No central canal or foraminal narrowing. L2-L3: Mild to moderate intervertebral disc space narrowing with vacuum disc phenomena, spondylitic spurring, moderate facet arthrosis and ligament of flavum thickening. Small circumferential disc bulge. These findings cause moderate central canal and mild bilateral foraminal narrowing. L3-L4: Moderate intervertebral disc space narrowing with vacuum disc phenomena, circumferential annular disc bulge, moderate spondylitic spurring with moderate facet arthrosis and ligamentum flavum thickening. Findings cause severe central canal narrowing with AP dimension of the thecal sac measuring 5 mm. Severe bilateral foraminal narrowing. L4-L5: Moderate intervertebral disc space narrowing with vacuum disc phenomenon and large posterior disc osteophyte complex with moderate facet arthrosis and ligamentum flavum thickening. AP dimension of the thecal sac measures 5 mm. There is severe central canal, mild right and moderate left foraminal narrowing. L5-S1: Moderate posterior intervertebral disc space narrowing with vacuum disc phenomena, spondylitic spurring and circumferential annular disc bulge with moderate facet arthrosis. There is severe bilateral foraminal narrowing without significant central canal stenosis. IMPRESSION: 1. No acute fracture or subluxation of the lumbar spine. 2. Multilevel intervertebral disc space narrowing, spondylitic spurring, facet arthrosis and annular disc bulging as above with severe central canal stenosis at L4-L5. 3. Severe bilateral foraminal narrowing is seen at the L3-L4 and L5-S1 levels. 4. Cholelithiasis and nephrolithiasis are partially imaged. The above report was generated using voice recognition software. It may contain grammatical, syntax or spelling errors. Electronically signed by: Marito Ho M.D. 02/06/2018 6:36 PM Dictated Date/Time: 02/06/2018 6:29 PM [~ rep ct add3]] PELVIS NO IV/ORAL CONT (CT) HISTORY: 57 years-old Male Low back pain, radiating to R hip chronic low back pain with radiation into the right hip. No reported trauma. COMPARISON: CT abdomen and pelvis 04/03/2017, lumbar spine CT of same day. TECHNIQUE: Multiple axial CT images of the pelvis were obtained without the use of IV contrast. A dose lowering technique was used consistent with the principals of TOMMY. FINDINGS: Degenerative changes of the lumbar spine are discussed separately on the CT lumbar spine exam of same day. Moderate degenerative changes about the bilateral SI joints. No acute fracture or dislocation is identified. No sacral insufficiency fracture. Iliac bones, superior and inferior pubic rami appear intact. Subcortical cystic changes about the pubic symphysis. Mild osteoarthritis about the bilateral femoral acetabular joints. Bone mineralization is within normal limits. Atherosclerosis of the aortoiliac vasculature. Colonic diverticulosis without diverticulitis. Fecal material of the distal ileum suggests delayed bowel transit. The appendix is not visualized. No inflammatory changes or ascites of the pelvis. No pathologic adenopathy. The musculature and soft tissues appear to be within normal limits. IMPRESSION: 1. No acute fracture or dislocation. 2. Degenerative changes about the pelvis and bilateral hips as above. 3. Colonic diverticulosis without diverticulitis. The above report was generated using voice recognition software. It may contain grammatical, syntax or spelling errors. Electronically signed by: Marito Ho M.D. 02/06/2018 6:23 PM Dictated Date/Time: 02/06/2018 6:19 PM LUMBAR SPINE W/O CONTRAST CLINICAL HISTORY: 57 years-old Male with Low back pain. Chronic low back pain with radiation into the right lower extremity. COMPARISON: Pelvis and lumbar spine of same day TECHNIQUE: Multiplanar, multi sequence MRI of the lumbar spine was performed without intravenous contrast. FINDINGS: No acute fracture, subluxation or focal bone marrow edema. T1 hyperintense ovoid lesion of the subcutaneous tissues posterior to the L5 vertebral body suggests lipoma, partially imaged on image 1 series 4. Conus medullaris terminates at the L1 level. Signal within the imaged thoracic spinal cord appears normal. Cauda equina appear to be within normal limits. Epidural lipomatosis causes background mild central canal narrowing. No gross abnormality on the large [id number] biology specialist localizer images. No aortic aneurysm or adenopathy. T12-L1: Mild intervertebral disc space narrowing with spondylitic spurring. No central canal or foraminal narrowing. L1-L2: Mild spondylitic spurring, facet arthrosis and ligamentum flavum thickening without central canal or foraminal narrowing. L2-L3: Moderate intervertebral disc space narrowing with spondylitic spurring, circumferential annular disc bulge, moderate facet arthrosis with ligamentum flavum thickening. The sac is narrowed to 8 mm in AP dimension resulting in mild to moderate central canal and mild bilateral foraminal narrowing. L3-L4: Moderate intervertebral disc space narrowing with spondylitic spurring, circumferential annular disc bulge, moderate facet arthrosis with ligamentum flavum thickening. Thecal sac is narrowed to 5 mm in AP dimension resulting in severe central canal, moderate to severe left and moderate right foraminal narrowing. L4-L5: Moderate intervertebral disc space narrowing with spondylitic spurring, circumferential annular disc bulge with central broad-based disc protrusion. Moderate facet arthrosis with ligamentum flavum thickening. AP dimension of the thecal sac measures 6 mm. There is moderate to severe central canal, moderate left and mild right foraminal narrowing. L5-S1: Moderate intervertebral disc space narrowing with spondylitic spurring, circumferential annular disc bulge, moderate facet arthrosis with ligamentum flavum thickening. Findings cause mild central canal, severe right and moderate to severe left foraminal narrowing. IMPRESSION: 1. No acute fracture or subluxation. 2. Epidural lipomatosis causes background mild central canal narrowing. Multilevel discogenic degenerative changes with spondylitic spurring, facet arthrosis and ligamentum flavum thickening causes varying degrees of central canal and foraminal narrowing as detailed level by level above. 3. Severe central canal stenosis at L3-L4 with moderate to severe central canal stenosis at L4-L5. 4. Severe right and moderate to severe left foraminal stenosis at L5-S1 with moderate to severe left foraminal stenosis at L3-L4. 5. Partially imaged lipoma of the deep subcutaneous tissues posterior to the L5 level. The above report was generated using voice recognition software. It may contain grammatical, syntax or spelling errors. Electronically signed by: Marito Ho M.D. 02/06/2018 9:40 PM Dictated Date/Time: 02/06/2018 9:30 PM Laboratory Results 02/06/18 17:44 Red Blood Count 4.50, Mean Corpuscular Volume 84.0, Mean Corpuscular Hemoglobin 29.6, Mean Corpuscular Hemoglobin Concent 35.2, Mean Platelet Volume 10.9, Neutrophils (%) (Auto) 84.9, Lymphocytes (%) (Auto) 9.2, Monocytes (%) (Auto) 4.9, Eosinophils (%) (Auto) 0.4, Basophils (%) (Auto) 0.2, Neutrophils # (Auto) 11.89, Lymphocytes # (Auto) 1.29, Monocytes # (Auto) 0.68, Eosinophils # (Auto) 0.06, Basophils # (Auto) 0.03 02/06/18 17:44 Test 02/06/18 17:44 02/06/18 18:20 White Blood Count 14.00 K/uL (4.8-10.8) Red Blood Count 4.50 M/uL (4.7-6.1) Hemoglobin 13.3 g/dL (14.0-18.0) Hematocrit 37.8 % (42-52) Mean Corpuscular Volume 84.0 fL (80-100) Mean Corpuscular Hemoglobin 29.6 pg (25-34) Mean Corpuscular Hemoglobin Concent 35.2 g/dl (32-36) Platelet Count 198 K/uL (130-400) Mean Platelet Volume 10.9 fL (7.4-10.4) Neutrophils (%) (Auto) 84.9 % Lymphocytes (%) (Auto) 9.2 % Monocytes (%) (Auto) 4.9 % Eosinophils (%) (Auto) 0.4 % Basophils (%) (Auto) 0.2 % Neutrophils # (Auto) 11.89 K/uL (1.4-6.5) Lymphocytes # (Auto) 1.29 K/uL (1.2-3.4) Monocytes # (Auto) 0.68 K/uL (0.11-0.59) Eosinophils # (Auto) 0.06 K/uL (0-0.5) Basophils # (Auto) 0.03 K/uL (0-0.2) RDW Standard Deviation 41.1 fL (36.4-46.3) RDW Coefficient of Variation 13.6 % (11.5-14.5) Immature Granulocyte % (Auto) 0.4 % Immature Granulocyte # (Auto) 0.05 K/uL (0.00-0.02) Erythrocyte Sedimentation Rate 29 mm/hr (0-14) Anion Gap 4.0 mmol/L (3-11) Est Creatinine Clear Calc Drug Dose 107.4 ml/min Estimated GFR () 73.6 Estimated GFR (Non- 63.5 BUN/Creatinine Ratio 23.0 (10-20) Calcium Level 9.5 mg/dl (8.5-10.1) Magnesium Level 2.2 mg/dl (1.8-2.4) Total Bilirubin 0.3 mg/dl (0.2-1) Aspartate Amino Transf (AST/SGOT) 26 U/L (15-37) Alanine Aminotransferase (ALT/SGPT) 33 U/L (12-78) Alkaline Phosphatase 78 U/L (45-117) C-Reactive Protein 2.86 mg/dl (0-0.29) Total Protein 8.3 gm/dl (6.4-8.2) Albumin 3.9 gm/dl (3.4-5.0) Globulin 4.4 gm/dl (2.5-4.0) Albumin/Globulin Ratio 0.9 (0.9-2) Urine Color YELLOW Urine Appearance CLEAR (CLEAR) Urine pH 5.0 (4.5-7.5) Urine Specific [place] 1.023 (1.000-1.030) Urine Protein NEG (NEG) Urine Glucose (UA) NEG (NEG) Urine Ketones NEG (NEG) Urine Occult Blood NEG (NEG) Urine Nitrite NEG (NEG) Urine Bilirubin NEG (NEG) Urine Urobilinogen NEG (NEG) Urine Leukocyte Esterase NEG (NEG) Medications Administered Medications (Trade) Dose Ordered Sig/Melvi Route Start Time Stop Time Status Last Admin Dose Admin Morphine Sulfate (MoRPHine SULFATE INJ) 4 mg NOW STAT IV 02/06/18 18:24 02/06/18 18:25 DC 02/06/18 18:31 4 MG Hydromorphone HCl (Dilaudid Inj) 1 mg NOW STAT IV 02/06/18 18:41 02/06/18 18:42 DC 02/06/18 20:30 1 MG Medical Decision Patient was seen and evaluated as above in room C9. Review was performed of nursing notes and vital signs. After obtaining a thorough history and physical examination the above work up was performed. He presents to us today with low back pain. This was via ambulance. IV access was established. CBC reveals leukocytosis of 14,000. There is also anemia of hemoglobin at 13.3. ESR elevated at 29. Metabolic panel does reveal dehydration with BUN at 29. Glucose high at 172. CRP elevated. Urine is negative. CT scan was obtained and reveals severe narrowing. This was better depicted upon the MRI which was ordered secondary to his presentation as well as his pain. Results of these are as above. He has received numerous rounds of pain medication here and I believe would be better suited in the inpatient setting for further evaluation and management. Case was discussed with the attending physician. He will likely need pain control in the inpatient setting which would better be achieved versus outpatient p.o. meds at the current time. Leukocytosis I suspect is likely stress response to his pain. No evidence of infection found. Case was discussed with the attending physician. In the evaluation and treatment of this patient the following differential diagnoses were entertained: Cauda equina syndrome, lumbar sprain, fracture, dislocation, disc bulge, foraminal narrowing, among others. Impression Primary Impression: Back pain, acute Additional Impression: Intractable back pain Departure Information Referrals Bashir Alegre M.D. (PCP) Patient Instructions [facility] Problem Qualifiers
[2018-02-06] MEDS ORDERED: HYDROmorphone INJ 1 MG/ML SYR IV STA (18:41)
--- NOTE | 2018-02-06 21:41 | DIAGNOSTIC IMAGING REPORT ---
LUMBAR SPINE W/O CONTRAST CLINICAL HISTORY: 57 years-old Male with Low back pain. Chronic low back pain with radiation into the right lower extremity. COMPARISON: Pelvis and lumbar spine of same day TECHNIQUE: Multiplanar, multi sequence MRI of the lumbar spine was performed without intravenous contrast. FINDINGS: No acute fracture, subluxation or focal bone marrow edema. T1 hyperintense ovoid lesion of the subcutaneous tissues posterior to the L5 vertebral body suggests lipoma, partially imaged on image 1 series 4. Conus medullaris terminates at the L1 level. Signal within the imaged thoracic spinal cord appears normal. Cauda equina appear to be within normal limits. Epidural lipomatosis causes background mild central canal narrowing. No gross abnormality on the large [id number] lead qa analyst localizer images. No aortic aneurysm or adenopathy. T12-L1: Mild intervertebral disc space narrowing with spondylitic spurring. No central canal or foraminal narrowing. L1-L2: Mild spondylitic spurring, facet arthrosis and ligamentum flavum thickening without central canal or foraminal narrowing. L2-L3: Moderate intervertebral disc space narrowing with spondylitic spurring, circumferential annular disc bulge, moderate facet arthrosis with ligamentum flavum thickening. The sac is narrowed to 8 mm in AP dimension resulting in mild to moderate central canal and mild bilateral foraminal narrowing. L3-L4: Moderate intervertebral disc space narrowing with spondylitic spurring, circumferential annular disc bulge, moderate facet arthrosis with ligamentum flavum thickening. Thecal sac is narrowed to 5 mm in AP dimension resulting in severe central canal, moderate to severe left and moderate right foraminal narrowing. L4-L5: Moderate intervertebral disc space narrowing with spondylitic spurring, circumferential annular disc bulge with central broad-based disc protrusion. Moderate facet arthrosis with ligamentum flavum thickening. AP dimension of the thecal sac measures 6 mm. There is moderate to severe central canal, moderate left and mild right foraminal narrowing. L5-S1: Moderate intervertebral disc space narrowing with spondylitic spurring, circumferential annular disc bulge, moderate facet arthrosis with ligamentum flavum thickening. Findings cause mild central canal, severe right and moderate to severe left foraminal narrowing. IMPRESSION: 1. No acute fracture or subluxation. 2. Epidural lipomatosis causes background mild central canal narrowing. Multilevel discogenic degenerative changes with spondylitic spurring, facet arthrosis and ligamentum flavum thickening causes varying degrees of central canal and foraminal narrowing as detailed level by level above. 3. Severe central canal stenosis at L3-L4 with moderate to severe central canal stenosis at L4-L5. 4. Severe right and moderate to severe left foraminal stenosis at L5-S1 with moderate to severe left foraminal stenosis at L3-L4. 5. Partially imaged lipoma of the deep subcutaneous tissues posterior to the L5 level. The above report was generated using voice recognition software. It may contain grammatical, syntax or spelling errors. Electronically signed by: Marito Ho M.D. 02/06/2018 9:40 PM Dictated Date/Time: 02/06/2018 9:30 PM
[2018-02-06] MEDS ORDERED: ONDANSETRON INJ 2 MG/ML 2 ML VIAL IV PRN (22:45)
[2018-02-06] MEDS ORDERED: MoRPHine SULFATE 4 MG/ML 1 ML CARP\\VIAL IV PRN (22:45)
[2018-02-06] MEDS ORDERED: KETOROLAC TROMETHAMINE 30 MG/ML VIAL IV PRN (22:45)
[2018-02-06] MEDS ORDERED: ACETAMINOPHEN 325 MG TAB PO PRN (22:45)
[2018-02-06] MEDS ORDERED: IV FLUIDS COMPLETED PRN (23:00)
--- NOTE | 2018-02-06 23:17 | History and Physical ---
History & Physical Date & Time of Service: February 06, 2018 at 22:47 Chief Complaint: Back Pain Primary Care Physician: Bashir Alegre M.D. History of Present Illness Source: patient, family Patient is a 57 year old male with a past medical history of hypertension, diabetes, and hyperlipidemia with a 3 week history of back pain that acutely worsened this morning. The patient was evaluated by [facility] and evaluated by Dr. Avila this last Thursday but told that he had arthritis and was started on NSAIDs by his PCP with instructions to start PT on Thursday. This morning when in the washroom the patient was wiping when he had a sudden sharp pain in his lower back. He had to sit on the comode for 3 hours while awaiting ambulance transport. The patient is having difficulty with walking due to the pain which he rated as a 10/10 on arrival. Since admission the patient has shows significant improvement in his pain with Morphine and Dilaudid, although lives with his mother and has no assistance at home and is morbidly obese. He denies any loss of bowel or bladder control, numbness or tingling in the lower extremities, or weakness. He also denies any fevers, chills, burning on urination, chest pain, or shortness of breath. Past Medical/Surgical History Medical Problems: (1) Back pain, acute (2) DIAB ROBINSON WO COMPL, TYPE II OR UNSPEC TYPE, NOT UNCNTRLD (3) Hydronephrosis (4) HYPERLIPIDEMIA NEC/NOS (5) Kidney stone (6) Morbid obesity (7) Renal colic on left side (8) Ureteral stone (9) Wrist injury Family History Diabetes mellitus Heart disease Hypertension Kidney disease Kidney stones Social History Smoking Status: Never Smoker Marital Status: Occupational Status: employed Immunizations History of Influenza Vaccine: N/A History of Tetanus Vaccine?: Yes History of Pneumococcal: No History of Hepatitis B Vaccine: Unknown Allergies Coded Allergies: Fabric Softeners (Verified Allergy, Unknown, "SNUGGLES"-COULDN'T REMEMBER , 02/06/18) Metformin (Verified Adverse Reaction, Unknown, DIARRHEA, 02/06/18) Mometasone (Verified Adverse Reaction, Unknown, NOSE BLEEDS;DRYNESS, ) Simvastatin (Verified Adverse Reaction, Unknown, COUGH, 02/06/18) Home Medications Scheduled Aspirin (Ec-81 Aspirin), 81 TAB PO AMPM Atenolol (Tenormin), 100 MG PO QAM Cholecalciferol (Vitamin D3), 2,000 MG PO QPM Cyanocobalamin (Vitamin B-12), 1,000 MCG PO DAILY Ezetimibe (Zetia), 10 MG PO QPM Fish Oil ([place]-3), 1 CAP PO DAILY Glimepiride (Glimepiride), 4 MG PO BID Glucosamine-Chondroitin (Ra Glucosamine/Chondroiti 750-600 mg), 1 TAB PO BID Indapamide (Lozol), 1.25 MG PO QAM Insulin Glargine (Lantus Solostar), 50 UNITS SC QAM Losartan Potassium (Cozaar), 50 MG PO QAM Meloxicam (Mobic), 7.5 MG PO DAILY Multivitamins/Minerals (Mvi With Minerals), 1 TAB PO QAM Sitagliptin Phosphate (Januvia), 100 MG PO DAILY Review of Systems Constitutional: No fever, No chills, No fatigue Respiratory: No cough, No sputum, No shortness of breath Cardiovascular: No chest pain, No palpitations Abdomen: No pain, No nausea, No vomiting, No diarrhea, No constipation Musculoskeletal: + problem reported (Lower back pain) Genitourinary - Male: No hematuria, No dysuria, No urinary frequency Neurologic: No paralysis, No weakness, No numbness/tingling Endocrine: No fatigue, No excessive thirst Physical Exam Vital Signs Date Time Temp Pulse Resp B/P (MAP) Pulse Ox O2 Delivery O2 Flow Rate FiO2 02/06/18 21:59 65 18 144/78 98 Room Air 02/06/18 20:09 63 18 129/61 98 Room Air 02/06/18 18:39 66 02/06/18 18:31 98 Room Air 02/06/18 18:31 64 18 131/66 95 Room Air 02/06/18 16:57 37.0 69 18 157/71 91 Room Air General Appearance: WD/WN, + mild distress Head: normocephalic, atraumatic Eyes: normal inspection, sclerae normal Neck: supple, no carotid bruits Respiratory/Chest: chest non-tender, lungs clear, normal breath sounds Cardiovascular: regular rate, rhythm, no edema, no gallop Abdomen/GI: normal bowel sounds, non tender, soft Back: no CVA tenderness, + muscle spasm (bilateral lower back tenderness), + pertinent finding (Negative straight leg ) Extremities/Musculoskelatal: no calf tenderness, no pedal edema, + pertinent finding (lower extremity stasis dermatitis) Neurologic/Psych: alert, normal mood/affect, oriented x 3 Diagnostics Laboratory Results Results Past 24 Hours Test 02/06/18 17:44 02/06/18 18:20 Range/Units White Blood Count 14.00 4.8-10.8 K/uL Red Blood Count 4.50 4.7-6.1 M/uL Hemoglobin 13.3 14.0-18.0 g/dL Hematocrit 37.8 42-52 % Mean Corpuscular Volume 84.0 80-100 fL Mean Corpuscular Hemoglobin 29.6 25-34 pg Mean Corpuscular Hemoglobin Concent 35.2 32-36 g/dl Platelet Count 198 130-400 K/uL Mean Platelet Volume 10.9 7.4-10.4 fL Neutrophils (%) (Auto) 84.9 % Lymphocytes (%) (Auto) 9.2 % Monocytes (%) (Auto) 4.9 % Eosinophils (%) (Auto) 0.4 % Basophils (%) (Auto) 0.2 % Neutrophils # (Auto) 11.89 1.4-6.5 K/uL Lymphocytes # (Auto) 1.29 1.2-3.4 K/uL Monocytes # (Auto) 0.68 0.11-0.59 K/uL Eosinophils # (Auto) 0.06 0-0.5 K/uL Basophils # (Auto) 0.03 0-0.2 K/uL RDW Standard Deviation 41.1 36.4-46.3 fL RDW Coefficient of Variation 13.6 11.5-14.5 % Immature Granulocyte % (Auto) 0.4 % Immature Granulocyte # (Auto) 0.05 0.00-0.02 K/uL Erythrocyte Sedimentation Rate 29 0-14 mm/hr Sodium Level 137 136-145 mmol/L Potassium Level 4.4 3.5-5.1 mmol/L Chloride Level 105 98-107 mmol/L Carbon Dioxide Level 28 21-32 mmol/L Anion Gap 4.0 3-11 mmol/L Blood Urea Nitrogen 29 7-18 mg/dl Creatinine 1.25 0.60-1.40 mg/dl Est Creatinine Clear Calc Drug Dose 107.4 ml/min Estimated GFR () 73.6 Estimated GFR (Non- 63.5 BUN/Creatinine Ratio 23.0 10-20 Random Glucose 172 70-99 mg/dl Calcium Level 9.5 8.5-10.1 mg/dl Magnesium Level 2.2 1.8-2.4 mg/dl Total Bilirubin 0.3 0.2-1 mg/dl Aspartate Amino Transf (AST/SGOT) 26 15-37 U/L Alanine Aminotransferase (ALT/SGPT) 33 12-78 U/L Alkaline Phosphatase 78 45-117 U/L C-Reactive Protein 2.86 0-0.29 mg/dl Total Protein 8.3 6.4-8.2 gm/dl Albumin 3.9 3.4-5.0 gm/dl Globulin 4.4 2.5-4.0 gm/dl Albumin/Globulin Ratio 0.9 0.9-2 Urine Color YELLOW Urine Appearance CLEAR CLEAR Urine pH 5.0 4.5-7.5 Urine Specific [place] 1.023 1.000-1.030 Urine Protein NEG NEG Urine Glucose (UA) NEG NEG Urine Ketones NEG NEG Urine Occult Blood NEG NEG Urine Nitrite NEG NEG Urine Bilirubin NEG NEG Urine Urobilinogen NEG NEG Urine Leukocyte Esterase NEG NEG Impression Assessment and Plan Patient is a 57 year old male with a past medical history of hypertension, diabetes, and hyperlipidemia with a 3 week history of back pain that acutely worsened this morning Lower Back Pain - MRI Spine: 1. No acute fracture or subluxation. 2. Epidural lipomatosis causes background mild central canal narrowing. Multilevel discogenic degenerative changes with spondylitic spurring, facet arthrosis and ligamentum flavum thickening causes varying degrees of central canal and foraminal narrowing as detailed level by level above. 3. Severe central canal stenosis at L3-L4 with moderate to severe central canal stenosis at L4-L5. 4. Severe right and moderate to severe left foraminal stenosis at L5-S1 with moderate to severe left foraminal stenosis at L3-L4. 5. Partially imaged lipoma of the deep subcutaneous tissues posterior to the L5 level. - Morphine 4mg IV q4h PRN - Toradol 30mg IV q6h PRN - PT/OT - Discharge Planning Hypertension - Continue home Atenolol, Cozaar, and Lozol Diabetes Mellitus - Continue home Lantus, Glimeperide, and Januvia HLD - Continue home Zetia DVT - Lovenox Code Status - Full Resuscitation Resuscitation Status Full Code VTE Prophylaxis Will order VTE Prophylaxis: Yes Resident Tracking Resident Involvement: Resident Care Provided Care Provided: Adult Hospital Medicine History 57yo male with DM, HLP, morbid obesity presenting with acute low back pain with radiation to the right hip that started this evening. Patient having difficulty with ambulation and states that he is unsteady on his feet. Denies fevers/chills, denies radicular symptoms, denies loss of bowel or bladder control. On physical exam he is afebrile, hemodynamically stable. NAD. HEENT exam unremarkable. Heart +S1/S2, regular, no m/r/g, Lungs CTA, Abdomen soft, NT/ND, Extremities warm, well perfused. Pain with palpation of right sacral area. MS and sensation intact. Assessment: 57yo morbidly obese male with acute back pain, no neurologic symptoms. He is having difficulty ambulating and requiring IV medications for pain control. Will place in overnight observation, pain control and PT evaluation. Remainder of plan as above.
[2018-02-06] MEDS ORDERED: CARBOHYDRATES FOR HYPOGLYCEMIA PO PRN (23:45)
[2018-02-06] MEDS ORDERED: GLUCOSE 40% GEL 15 GM TUBE PO PRN (23:45)
[2018-02-06] MEDS ORDERED: GLUCAGON FOR INJ 1 MG VIAL IM PRN (23:45)
[2018-02-06] MEDS ORDERED: GLUCOSE 10 TABS/TUBE PO PRN (23:45)
[2018-02-06] MEDS ORDERED: DEXTROSE 50% 50 ML SYR IV PRN (23:45)
[2018-02-07 01:13] VITALS: BP 153/75; PULSE 62; TEMP 36.7; O2SAT 97; Ht 180.3 cm; Wt 176.7 kg
[2018-02-07 07:04] VITALS: BP 133/76; PULSE 53; TEMP 36.6; O2SAT 96
[2018-02-07 07:27] LABS: INR 1.1 (0.9-1.1)
[2018-02-07] MEDS ORDERED: SITAGLIPTIN 100 MG TAB PO SCH (08:00)
[2018-02-07] MEDS ORDERED: INDAPAMIDE 1.25 MG TAB PO SCH (08:00)
[2018-02-07] MEDS ORDERED: ENOXAPARIN 40 MG/0.4 ML SYR SQ SCH (08:00)
[2018-02-07] MEDS ORDERED: ASPIRIN 81 MG ECTAB PO SCH (08:00)
[2018-02-07] MEDS ORDERED: INSULIN GLARGINE SOLOSTAR 100 UNITS/ML 3 ML PEN SC SCH (08:00)
[2018-02-07] MEDS ORDERED: LOSARTAN POTASSIUM 50 MG TAB PO SCH (08:00)
[2018-02-07] MEDS ORDERED: PNEUMOCOCCAL POLYSACCHARIDES 25 MCG/0.5 ML VIAL/SYR IM. ONE (08:00)
[2018-02-07] MEDS ORDERED: GLIMEPIRIDE 2 MG TAB PO SCH (08:00)
[2018-02-07] MEDS ORDERED: PNEUMOCOCCAL ADMINISTRATION CHARGE ONE (08:00)
[2018-02-07 08:30] VITALS: PULSE 64
--- NOTE | 2018-02-07 11:26 | Discharge Instructions ---
Discharge Instructions Date of Service February 07, 2018. Admission Reason for Admission: Back Pain, Acute Discharge Discharge Diagnosis / Problem: Back pain, acute Discharge Goals Goal(s): Decrease discomfort, Improve function, Increase independence, Improve disease control, Learn about illness, Diagnostic testing Activity Recommendations Activity Limitations: as noted below Lifting Limitations: gradually increase as tolerated Exercise/Sports Limitations: gradually increase as tolerated . Instructions / Follow-Up Instructions / Follow-Up - You were admitted for acute back pain. We treated your symptoms with IV medications. - We do NOT recommend any changes to your current home medications -- continue Mobic for pain. - You can add tylenol. You can take 650mg tablets every 4 hours. Please do NOT exceed 3250mg of acetaminophen in any 24 hour period. We recommend you see your primary care physician and your orthopedic doctor for ongoing care of your back pain, in 1-2 weeks and they can review results of your MRI scan. 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 Be Well A [facility] Current Hospital Diet Patient's current hospital diet: Diabetes Type 2 Diet, AHA Diet (Heart Healthy) Discharge Diet Recommended Diet: Diabetes Type 2 Diet Procedures Procedures Performed: MRI of spine LUMBAR SPINE W/O CONTRAST CLINICAL HISTORY: 57 years-old Male with Low back pain. Chronic low back pain with radiation into the right lower extremity. COMPARISON: Pelvis and lumbar spine of same day TECHNIQUE: Multiplanar, multi sequence MRI of the lumbar spine was performed without intravenous contrast. FINDINGS: No acute fracture, subluxation or focal bone marrow edema. T1 hyperintense ovoid lesion of the subcutaneous tissues posterior to the L5 vertebral body suggests lipoma, partially imaged on image 1 series 4. Conus medullaris terminates at the L1 level. Signal within the imaged thoracic spinal cord appears normal. Cauda equina appear to be within normal limits. Epidural lipomatosis causes background mild central canal narrowing. 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 No aortic aneurysm or adenopathy. T12-L1: Mild intervertebral disc space narrowing with spondylitic spurring. No central canal or foraminal narrowing. L1-L2: Mild spondylitic spurring, facet arthrosis and ligamentum flavum thickening without central canal or foraminal narrowing. L2-L3: Moderate intervertebral disc space narrowing with spondylitic spurring, circumferential annular disc bulge, moderate facet arthrosis with ligamentum flavum thickening. The sac is narrowed to 8 mm in AP dimension resulting in mild to moderate central canal and mild bilateral foraminal narrowing. L3-L4: Moderate intervertebral disc space narrowing with spondylitic spurring, circumferential annular disc bulge, moderate facet arthrosis with ligamentum flavum thickening. Thecal sac is narrowed to 5 mm in AP dimension resulting in severe central canal, moderate to severe left and moderate right foraminal narrowing. L4-L5: Moderate intervertebral disc space narrowing with spondylitic spurring, circumferential annular disc bulge with central broad-based disc protrusion. Moderate facet arthrosis with ligamentum flavum thickening. AP dimension of the thecal sac measures 6 mm. There is moderate to severe central canal, moderate left and mild right foraminal narrowing. L5-S1: Moderate intervertebral disc space narrowing with spondylitic spurring, circumferential annular disc bulge, moderate facet arthrosis with ligamentum flavum thickening. Findings cause mild central canal, severe right and moderate to severe left foraminal narrowing. IMPRESSION: 1. No acute fracture or subluxation. 2. Epidural lipomatosis causes background mild central canal narrowing. Multilevel discogenic degenerative changes with spondylitic spurring, facet arthrosis and ligamentum flavum thickening causes varying degrees of central canal and foraminal narrowing as detailed level by level above. 3. Severe central canal stenosis at L3-L4 with moderate to severe central canal stenosis at L4-L5. 4. Severe right and moderate to severe left foraminal stenosis at L5-S1 with moderate to severe left foraminal stenosis at L3-L4. 5. Partially imaged lipoma of the deep subcutaneous tissues posterior to the L5 level. The above report was generated using voice recognition software. It may contain grammatical, syntax or spelling errors. Electronically signed by: Marito Ho M.D. 02/06/2018 9:40 PM Pending Studies Studies pending at discharge: no Work Instructions Additional Instructions: Return to work clearance pending Dr. Alegre's evaluation Medical Emergencies . Who to Call and When: Medical Emergencies: If at any time you feel your situation is an emergency, please call 911 immediately. . Non-Emergent Contact Non-Emergency issues call your: Primary Care Provider, Surgeon Call Non-Emergent contact if: your pain is not controlled, your pain is worsening, your pain is unusual for you, your pain is concerning you, you have any medication questions . . "Provider Documentation" section prepared by Jennifer Wyatt. .
[2018-02-07 11:43] VITALS: BP 133/76; PULSE 64; TEMP 36.6; O2SAT 96
--- NOTE | 2018-02-07 15:56 | Discharge Summary ---
Discharge Summary Date of Service February 07, 2018. Discharge Summary Admission Date: February 06, 2018 at 22:47 Discharge Date: February 07, 2018 Discharge Disposition: Home Principal Diagnosis: Back Pain, Acute Problems/Secondary Diagnoses: past medical history of hypertension, diabetes, and hyperlipidemia Immunizations: Have You Had Influenza Vaccine: N/A History of Tetanus Vaccine?: Yes History of Pneumococcal: No History of Hepatitis B Vaccine: Unknown Procedures: LUMBAR SPINE WITHOUT HISTORY: 57 years-old Male Low back pain, radiating to R hip chronic low back pain with radiation into the right hip COMPARISON: CT pelvis of same day TECHNIQUE: Multiple axial CT images of the lumbar spine were obtained without the use of IV contrast. A dose lowering technique was used consistent with the principals of TOMMY. FINDINGS: Moderate degenerative changes about the bilateral SI joints. No acute fracture or subluxation. Multilevel degenerative changes as below. Atherosclerosis of the aorta without aneurysm. No pathologic adenopathy. Partially imaged cholelithiasis. Multiple nonobstructing nephrolithiasis seen bilaterally. T12-L1: Mild intervertebral disc space narrowing with spondylitic spurring and mild facet arthrosis. No central canal or foraminal narrowing. L1-L2: Mild intervertebral disc space narrowing and spondylitic spurring with mild facet arthrosis. No central canal or foraminal narrowing. L2-L3: Mild to moderate intervertebral disc space narrowing with vacuum disc phenomena, spondylitic spurring, moderate facet arthrosis and ligament of flavum thickening. Small circumferential disc bulge. These findings cause moderate central canal and mild bilateral foraminal narrowing. L3-L4: Moderate intervertebral disc space narrowing with vacuum disc phenomena, circumferential annular disc bulge, moderate spondylitic spurring with moderate facet arthrosis and ligamentum flavum thickening. Findings cause severe central canal narrowing with AP dimension of the thecal sac measuring 5 mm. Severe bilateral foraminal narrowing. L4-L5: Moderate intervertebral disc space narrowing with vacuum disc phenomenon and large posterior disc osteophyte complex with moderate facet arthrosis and ligamentum flavum thickening. AP dimension of the thecal sac measures 5 mm. There is severe central canal, mild right and moderate left foraminal narrowing. L5-S1: Moderate posterior intervertebral disc space narrowing with vacuum disc phenomena, spondylitic spurring and circumferential annular disc bulge with moderate facet arthrosis. There is severe bilateral foraminal narrowing without significant central canal stenosis. IMPRESSION: 1. No acute fracture or subluxation of the lumbar spine. 2. Multilevel intervertebral disc space narrowing, spondylitic spurring, facet arthrosis and annular disc bulging as above with severe central canal stenosis at L4-L5. 3. Severe bilateral foraminal narrowing is seen at the L3-L4 and L5-S1 levels. 4. Cholelithiasis and nephrolithiasis are partially imaged. Electronically signed by: Marito Ho M.D. 02/06/2018 6:36 PM Dictated Date/Time: 02/06/2018 6:29 PM PELVIS NO IV/ORAL CONT (CT) HISTORY: 57 years-old Male Low back pain, radiating to R hip chronic low back pain with radiation into the right hip. No reported trauma. COMPARISON: CT abdomen and pelvis 04/03/2017, lumbar spine CT of same day. TECHNIQUE: Multiple axial CT images of the pelvis were obtained without the use of IV contrast. A dose lowering technique was used consistent with the principals of SARAIRA. FINDINGS: Degenerative changes of the lumbar spine are discussed separately on the CT lumbar spine exam of same day. Moderate degenerative changes about the bilateral SI joints. No acute fracture or dislocation is identified. No sacral insufficiency fracture. Iliac bones, superior and inferior pubic rami appear intact. Subcortical cystic changes about the pubic symphysis. Mild osteoarthritis about the bilateral femoral acetabular joints. Bone mineralization is within normal limits. Atherosclerosis of the aortoiliac vasculature. Colonic diverticulosis without diverticulitis. Fecal material of the distal ileum suggests delayed bowel transit. The appendix is not visualized. No inflammatory changes or ascites of the pelvis. No pathologic adenopathy. The musculature and soft tissues appear to be within normal limits. IMPRESSION: 1. No acute fracture or dislocation. 2. Degenerative changes about the pelvis and bilateral hips as above. 3. Colonic diverticulosis without diverticulitis. Electronically signed by: Marito Ho M.D. 02/06/2018 6:23 PM Dictated Date/Time: 02/06/2018 6:19 PM LUMBAR SPINE W/O CONTRAST CLINICAL HISTORY: 57 years-old Male with Low back pain. Chronic low back pain with radiation into the right lower extremity. COMPARISON: Pelvis and lumbar spine of same day TECHNIQUE: Multiplanar, multi sequence MRI of the lumbar spine was performed without intravenous contrast. FINDINGS: No acute fracture, subluxation or focal bone marrow edema. T1 hyperintense ovoid lesion of the subcutaneous tissues posterior to the L5 vertebral body suggests lipoma, partially imaged on image 1 series 4. Conus medullaris terminates at the L1 level. Signal within the imaged thoracic spinal cord appears normal. Cauda equina appear to be within normal limits. Epidural lipomatosis causes background mild central canal narrowing. 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 No aortic aneurysm or adenopathy. T12-L1: Mild intervertebral disc space narrowing with spondylitic spurring. No central canal or foraminal narrowing. L1-L2: Mild spondylitic spurring, facet arthrosis and ligamentum flavum thickening without central canal or foraminal narrowing. L2-L3: Moderate intervertebral disc space narrowing with spondylitic spurring, circumferential annular disc bulge, moderate facet arthrosis with ligamentum flavum thickening. The sac is narrowed to 8 mm in AP dimension resulting in mild to moderate central canal and mild bilateral foraminal narrowing. L3-L4: Moderate intervertebral disc space narrowing with spondylitic spurring, circumferential annular disc bulge, moderate facet arthrosis with ligamentum flavum thickening. Thecal sac is narrowed to 5 mm in AP dimension resulting in severe central canal, moderate to severe left and moderate right foraminal narrowing. L4-L5: Moderate intervertebral disc space narrowing with spondylitic spurring, circumferential annular disc bulge with central broad-based disc protrusion. Moderate facet arthrosis with ligamentum flavum thickening. AP dimension of the thecal sac measures 6 mm. There is moderate to severe central canal, moderate left and mild right foraminal narrowing. L5-S1: Moderate intervertebral disc space narrowing with spondylitic spurring, circumferential annular disc bulge, moderate facet arthrosis with ligamentum flavum thickening. Findings cause mild central canal, severe right and moderate to severe left foraminal narrowing. IMPRESSION: 1. No acute fracture or subluxation. 2. Epidural lipomatosis causes background mild central canal narrowing. Multilevel discogenic degenerative changes with spondylitic spurring, facet arthrosis and ligamentum flavum thickening causes varying degrees of central canal and foraminal narrowing as detailed level by level above. 3. Severe central canal stenosis at L3-L4 with moderate to severe central canal stenosis at L4-L5. 4. Severe right and moderate to severe left foraminal stenosis at L5-S1 with moderate to severe left foraminal stenosis at L3-L4. 5. Partially imaged lipoma of the deep subcutaneous tissues posterior to the L5 level. Electronically signed by: Marito Ho M.D. 02/06/2018 9:40 PM Dictated Date/Time: 02/06/2018 9:30 PM Medication Reconciliation Continued Medications: Aspirin (Ec-81 Aspirin) 81 Mg Tab 81 TAB PO AMPM Atenolol (Tenormin) 100 Mg Tab 100 MG PO QAM, 0 Refills Cholecalciferol (Vitamin D3) 2,000 Unit Cap 2000 MG PO QPM Cyanocobalamin (Vitamin B-12) 1,000 Mcg Tab 1000 MCG PO DAILY Ezetimibe (Zetia) 10 Mg Tab 10 MG PO QPM, 0 Refills Fish Oil ([place]-3) 1 Ea Cap 1 CAP PO DAILY Glimepiride (Glimepiride) 2 Mg Tab 4 MG PO BID Glucosamine-Chondroitin (Ra Glucosamine/Chondroiti 750-600 mg) 1 Tab Tab 1 TAB PO BID Indapamide (Lozol) 1.25 Mg Tab 1.25 MG PO QAM, 0 Refills Insulin Glargine (Lantus Solostar) 100 Unit/Ml Inj 50 UNITS SC QAM Losartan Potassium (Cozaar) 50 Mg Tab 50 MG PO QAM, TAB Meloxicam (Mobic) 7.5 Mg Tab 7.5 MG PO DAILY Multivitamins/Minerals (Mvi With Minerals) Tab 1 TAB PO QAM, 0 Refills Sitagliptin Phosphate (Januvia) 100 Mg Tab 100 MG PO DAILY Discharge Exam Pt is resting comfortably in bed this morning, received one shot of Toradol in the AM. Was able to work with PT without pain. Discussed ongoing care with Dr. Herbert and Dr. Alegre, discussed his MRI scan. Discussed at length other things he can do for his back health as well as his metabolic issues, detailed below. Pt also states he snores and does not feel rested often. Answered all questions. Currently says pain is controlled, denies saddle anesthesia or loss of bowel/bladder function. ROS See HPI for pertinent positives and negatives. PHYSICAL EXAM GENERAL: Awake, alert, well-appearing, in no distress. Obese HENT: Normocephalic, atraumatic. EYES: Normal conjunctiva. Sclera non-icteric. NECK: Supple. FROM. No JVD. RESPIRATORY: Clear to auscultation. CARDIAC: Regular rate, normal rhythm. Extremities warm and well perfused. Pulses equal. ABDOMEN: Soft, non-distended. No tenderness to palpation. No rebound or guarding. No masses. LOWER EXTREMITIES: Calves are equal size bilaterally and non-tender. No edema. No discoloration. MSK: mild tenderness to palpation at right lumbar paraspinal muscles. NEURO: No motor deficits noted. SKIN: No rash or jaundice noted. Hospital Course Mr. Whitman is a pleasant 57 year old male here due to lower back pain that was not able to be controlled while in ED. Pt did receive 4mg IV morphine and 1mg IV dilaudid in the ED, and then 30mg of IV Toradol in the AM. Pt's pain was controlled, and he was able to ambulate with PT without issue. MRI and CT imaging revealed no acute fractures or subluxations; there were Multilevel discogenic degenerative changes with spondylitic spurring, facet arthrosis and ligamentum flavum thickening causes varying degrees of central canal and foraminal narrowing as detailed level by level above. Severe central canal stenosis at L3 L4 with moderate to severe central canal stenosis at L4- L5. Severe right and moderate to severe left foraminal stenosis at L5-S1 with moderate to severe left foraminal stenosis at L3-L4. Discussed at length his ongoing care with Dr. Avila, and back health which includes good diabetes control, weight management, and getting good sleep. Pt states that he does not get very good sleep -- and was evaluated by sleep study a few years prior that found he did not qualify for CPAP. Given his weight gain and reported frequent wakenings, patient may benefit from outpatient sleep study. Will defer to PCP for further management. It was a pleasure participating in Mr. Whitman's care. A Edmundo Total Time Spent: Greater than 30 minutes This includes examination of the patient, discharge planning, medication reconciliation, and communication with other providers. Discharge Instructions Please refer to the electronic Patient Visit Report (Discharge Instructions) for additional information. Additional Copies To Napoleon Avila DO; Bashir Alegre M.D. Resident Tracking Resident Involvement: Resident Care Provided Care Provided: [facility] Reviewed: Pt Seen/Exam by Me History back and leg pain resolved. Constitutional: denies: fever Respiratory: negative: short of breath Cardiovascular: denies chest pain General Appearance: no apparent distress Respiratory: lungs clear, no respiratory distress Cardiovascular: regular rate, rhythm Gastrointestinal: soft Neurologic/Psychiatric: alert, oriented x 3 Skin Characteristics: warm/dry Assessment/Plan Resident Physician Supervision Note: I independently interviewed and examined the patient and verified the caban history and physical, reviewed labs and image studies, discussed the case with the resident Dr. Wyatt and agree with the findings and care plan. Time spent in discharge 35 min
[2018-02-07] MEDS ORDERED: EZETIMIBE 10MG TAB PO SCH (21:00)
== END 2018-02-07 13:51 | disposition home or self-care (01) ==
LOC: EDBD 16:48 → C.EDC 16:49 → C.MS4W 22:47 → ENRESERV 23:10
PROVIDERS: ADMIT Student in an Organized Health Care Education/Training Program; ATTEND Family Medicine
DX: M48.061 Spinal stenosis, lumbar region without neurogenic claudication (principal); M54.5 Low back pain; K80.20 Calculus of gallbladder without cholecystitis without obstruction; N20.0 Calculus of kidney; E11.9 Type 2 diabetes mellitus without complications; E78.5 Hyperlipidemia, unspecified; E66.01 Morbid (severe) obesity due to excess calories; Z83.3 Family history of diabetes mellitus; Z82.49 Family history of ischemic heart disease and other diseases of the circulatory system; Z84.1 Family history of disorders of kidney and ureter; Z79.82 Long term (current) use of aspirin; Z79.84 Long term (current) use of oral hypoglycemic drugs; Z79.899 Other long term (current) drug therapy

== ENCOUNTER 2019-01-14 04:59 | Inpatient (IN) ==
--- NOTE | 2018-12-30 13:52 | PAT Medication Instructions ---
Medication Instructions Date of Service December 30, 2018 Home Medications Vitamin B 1 dose PO DAILY acetaminophen 1 - 2 tab PO UD PRN ascorbic acid (vitamin C) 1 dose PO DAILY aspirin [Aspir-81] 81 mg PO BID atenolol 100 mg PO QAM cholecalciferol (vitamin D3) 1 dose PO DAILY ezetimibe [Zetia] 10 mg PO QPM glimepiride [Amaryl] 2 mg PO BID glucosamine-chondroitin [Osteo Bi-Flex] 1 dose PO BID indapamide 1.25 mg PO QAM insulin glargine [Lantus Solostar] 50 unit SUBCUT QAM levothyroxine 150 mcg PO QAM losartan 50 mg PO QAM meloxicam [Mobic] 15 mg PO QAM omega 3-xto-svl-fish oil [Fish Oil] 1 cap PO BID sitagliptin [Januvia] 100 mg PO QAM cyanocobalamin (vitamin B-12) 1,000 mcg PO QAM multivitamin [Multiple Vitamins] 1 tab PO QAM ASK your surgeon for instructions aspirin [Aspir-81] 81 mg PO BID meloxicam [Mobic] 15 mg PO QAM STOP taking 2 weeks before surgery glucosamine-chondroitin [Osteo Bi-Flex] 1 dose PO BID omega 3-hlw-tqp-fish oil [Fish Oil] 1 cap PO BID DO NOT take the morning of surgery Vitamin B 1 dose PO DAILY ascorbic acid (vitamin C) 1 dose PO DAILY cholecalciferol (vitamin D3) 1 dose PO DAILY glimepiride [Amaryl] 2 mg PO BID indapamide 1.25 mg PO QAM losartan 50 mg PO QAM sitagliptin [Januvia] 100 mg PO QAM cyanocobalamin (vitamin B-12) 1,000 mcg PO QAM multivitamin [Multiple Vitamins] 1 tab PO QAM Take morning of surgery With a small sip of water, OTHERWISE NOTHING TO EAT OR DRINK AFTER MIDNIGHT: acetaminophen 1 - 2 tab PO UD PRN (if needed, may be taken up to four hours before surgery) atenolol 100 mg PO QAM levothyroxine 150 mcg PO QAM Take evening before surgery acetaminophen 1 - 2 tab PO UD PRN (if needed) ezetimibe [Zetia] 10 mg PO QPM glimepiride [Amaryl] 2 mg PO BID Insulin Dependent Diabetic Patients * Test your blood sugar the morning of surgery * If Blood Sugar is GREATER THAN 150, take HALF of your regular dose of: insulin glargine [Lantus Solostar] -- TAKE 25 UNITS * If Blood Sugar is LESS THAN 150, DO NOT TAKE ANY: insulin glargine [Lantus Solostar] Other Notes If you have any questions please call us at [phone] or [phone] or [phone] or [phone]
--- NOTE | 2018-12-30 14:26 | Anesthesiology Consultation ---
Date of Service December 30, 2018 Assessment & Plan (1) Encounter for pre-operative examination: DIFFICULT AIRWAY H/O FIBEROPTIC INTUBATION. PREVIOUS KNEE REPLACEMENT DONE WITH GA AFTER FAILED SPINAL. PATIENT WAS EDUCATED REGARDING PLAN FOR ATTEMPT AT SPINAL BUT POSSIBILITY OF AWAKE FIBEROPTIC INTUBATION. ON EXAM, NO GROSS ABNORMALITIES OF THE SPINE VISUALIZED, BUT SEVERE CENTRAL CANAL STENOSIS OF L3-L4 AND L4-L5 NOTED ON 2018 LUMBAR SPINE MRI. PCP Clearance 12/09/18: "No medical contraindication to upcoming planned R FAIZAN." CHECK BSG AM DOS Chart Review Chart Review: Acceptable Risk for Surgery and Patient seen in Pre Admission Testing Teaching & Discussion Instructed NPO after midnight before surgery, except medications with 15 cc of water. Medication instructions provided according to the PAT guidelines. History Surgery Operation Date: 01/14/19 10:40 Proposed Procedures p Right Total Hip Arthroplasty - Mark Hernandez MD Height/Weight Height: 5 ft 11 in Weight: 168 kg Allergies Allergy/AdvReac Type Severity Reaction Status Date / Time insulin glargine AdvReac Unknown "SKIN Verified 12/24/18 11:01 [From Lantus U-100 Insulin] SPLOTCHES" - SEE NOTE metformin AdvReac Unknown DIARRHEA Verified 04/06/18 09:49 mometasone furoate AdvReac Unknown NOSE Verified 04/06/18 09:49 BLEEDS;DRYNESS simvastatin AdvReac Unknown COUGH Verified 04/06/18 09:49 Fabric Softeners Allergy Unknown "SNUGGLES"- Uncoded 12/24/18 10:37 SKIN RASH Medications Home Medications Medication Instructions Recorded Confirmed Last Taken Vitamin B 1 dose PO DAILY 12/24/18 12/24/18 Unknown acetaminophen [Acetaminophen Extra 1 - 2 tab PO UD PRN 12/24/18 12/24/18 Unknown Strength] ascorbic acid (vitamin C) [Vitamin 1 dose PO DAILY 12/24/18 12/24/18 Unknown C] aspirin [Aspir-81] 81 mg PO BID 12/24/18 12/24/18 Unknown atenolol 100 mg PO QAM 12/24/18 12/27/18 12/27/18 cholecalciferol (vitamin D3) 1 dose PO DAILY 12/24/18 12/24/18 Unknown [Vitamin D3] ezetimibe [Zetia] 10 mg PO QPM 12/24/18 12/27/18 12/26/18 glimepiride [Amaryl] 2 mg PO BID 12/24/18 12/27/18 12/27/18 glucosamine-chondroitin [Osteo 1 dose PO BID 12/24/18 12/24/18 Unknown Bi-Flex] indapamide 1.25 mg PO QAM 12/24/18 12/27/18 12/27/18 insulin glargine [Lantus Solostar 50 unit SUBCUT QAM 12/24/18 12/27/18 12/27/18 U-100 Insulin] levothyroxine 150 mcg PO QAM 12/24/18 12/27/18 12/27/18 losartan 50 mg PO QAM 12/24/18 12/27/18 12/27/18 meloxicam [Mobic] 15 mg PO QAM 12/24/18 12/27/18 12/27/18 omega 5-rvw-gdu-fish oil [Fish Oil] 1 cap PO BID 12/24/18 12/24/18 Unknown sitagliptin [Januvia] 100 mg PO QAM 12/24/18 12/27/18 12/27/18 cyanocobalamin (vitamin B-12) 1,000 mcg PO QAM 12/27/18 12/27/18 Unknown [Vitamin B-12] multivitamin [Multiple Vitamins] 1 tab PO QAM 12/27/18 12/27/18 Unknown Past Medical History Medical History Acid reflux NO MEDS FOR/"NOT OFTEN" Back problem ARTHRITIS IN LOWER BACK Diabetes Difficult airway for intubation H/O FOI with 2012 TKA after unable to perform CSE. High blood pressure High cholesterol History of kidney stones History of sleep apnea ? IN HX - HX USE MACHINE/WAS TAKEN OFF OF Morbid (severe) obesity due to excess calories Spinal stenosis NECK Thyroid disease Past Surgical History Surgical History History of arthroscopy of left knee History of carpal tunnel release of both wrists History of lithotripsy History of total left knee replacement History of total right knee replacement Past Anesthesia History Difficult Airway and No Family Hx of Anesthesia Complications HISTORY OF FAILED SPINAL BLOCK AND DIFFICULT INTUBATION WITH NEED FOR FIBEROPTIC History of PONV No Motion Sickness Screening History of Motion Sickness: No Social History Smoking Status: Never smoker Do You Dip or Chew Tobacco: No (HX OF - QUIT 17 YR AGO) Hx Alcohol Use: No Hx Substance Use: No substance use type: does not use Exercise / Class Metabolic Activity II 4-5 Yardwork/Stairs/Walk up hill (Denies CP or SOB with stairs) Review of Systems Pt denies any recent chest pain, shortness of breath, palpitations, cough, fever or URI. Physical Exam Vital Signs BP: 131/77 P: 57bpm SPO2: 95% RA T: 98.4 F R: 16 Constitutional + morbidly obese (VERY) ENMT Mouth: + dental restorations (one crown lower L); no chipped teeth and no loose teeth Thyromental Distance: > or= 3.5 Finger Breadths (3.5) Mallampati Class: II Neck + short neck and + thick neck (VERY THICK); neck extension not limited FAT PAD POSTERIOR NECK. Respiratory normal respiratory effort Auscultation: lungs clear to auscultation bilaterally Cardiovascular Rate/Rhythm: regular rhythm and + bradycardic Heart Sounds: no murmur Vessels: no carotid bruit Extremities: no edema Musculoskeletal Spine: no scoliosis and no lumbar spinal tenderness Testing Electrocardiogram Date: 12/30/18 Findings: + SB @ (54) Chest X-Ray Date: 12/30/18 Stable mild cardiomegaly. No acute process within the chest. Other Testing Lumbar Spine MRI 02/06/18 IMPRESSION: 1. No acute fracture or subluxation. 2. Epidural lipomatosis causes background mild central canal narrowing.Multilevel discogenic degenerative changes with spondylitic spurring, facetarthrosis and ligamentum flavum thickening causes varying degrees of centralcanal and foraminal narrowing as detailed level by level above. 3. Severe central canal stenosis at L3-L4 with moderate to severe central canal stenosis at L4-L5. 4. Severe right and moderate to severe left foraminal stenosis at L5-S1 with moderate to severe left foraminal stenosis at L3-L4. 5. Partially imaged lipoma of the deep subcutaneous tissues posterior to the L5 level. Laboratory Results 12/30/18 14:44 Blood Type A Positive 12/30/18 14:44 Antibody Screen NEGATIVE 12/30/18 14:44 PT 11.0 Seconds (9.0-12.0) 12/30/18 14:44 INR 1.1 (0.9-1.1) 12/30/18 14:44 APTT 27.3 Seconds (21.0-31.0) 12/30/18 14:44 Laboratory Tests 12/30/18 14:44 Sodium 139 Potassium 4.2 Chloride 104 Carbon Dioxide 31 BUN 19 H Creatinine 0.98 Glucose 86 Laboratory Tests 12/30/18 14:44 Hemoglobin A1c 7.6 H *Hgb/Hct is consistent with baseline.
--- NOTE | 2018-12-30 15:00 | XRay Report ---
XR chest Pre-admission PA/Lat HISTORY: Preop. COMPARISON: Chest 10/01/2012. FINDINGS: There are low lung volumes. The heart remains mildly enlarged. This is unchanged. No pleura l effusions. No pneumothorax. The lungs are clear. IMPRESSION: Stable mild cardiomegaly. No acute process within the chest. Electronically signed by: Clayton Haddad M.D. 12/30/2018 2:59 PM
[2018-12-30 15:48] LABS: Basophils # (auto) 0.03 K/uL (0-0.2); Basophils % (auto) 0.3 %; Eosinophils % (auto) 0.9 %; Hematocrit (blood only) 36.8 % (42-52); Hemoglobin 12.4 g/dL (14.0-18.0); Immature Granulocytes # (auto) 0.04 K/uL (0.00-0.02); Immature Granulocytes % (auto) 0.4 %; Lymphocytes # (auto) 1.98 K/uL (1.2-3.4); Lymphocytes % (auto) 18.4 %; Mean Corpuscular Hgb Conc 33.7 g/dL (32-36); Mean Corpuscular Volume 85.8 fL (80-100); Mean Platelet Volume 11.3 fL (7.4-10.4); Monocytes # (auto) 0.51 K/uL (0.11-0.59); Monocytes % (auto) 4.7 %; Neutrophils # (auto) 8.09 K/uL (1.4-6.5); Neutrophils % (auto) 75.3 %; Platelet Count 210 K/uL (130-400); RDW Coefficient of Variation 14.5 % (11.5-14.5); RDW Standard Deviation 44.7 fL (36.4-46.3); Red Blood Count 4.29 M/uL (4.7-6.1); White Blood Count 10.75 K/uL (4.8-10.8)
[2018-12-30 15:58] LABS: INR 1.1 (0.9-1.1); Partial Thromboplastin Time 27.3 Seconds (21.0-31.0)
--- NOTE | 2019-01-13 13:31 | History and Physical Report ---
DATE OF ADMISSION: 01/14/2019 CHIEF COMPLAINT: Right hip pain. HISTORY OF PRESENT ILLNESS: This is a 58-year-old fairly large gentleman who is well known to me from previous bilateral knee replacements. He is referred to me for surgical treatment of his right hip by my partner, Dr. Lazar. He is about 6-7 months of increasing right hip pain and discomfort that has just gotten gradually worse, particularly over the past 4 months. He has had difficulty doing his job which requires a lot of walking due to the groin pain. He describes the groin pain and thigh pain. The more he walks, the more it hurts. He takes NSAIDs with minimal relief. He really would like to have his right hip fixed. He has nighttime discomfort. PAST MEDICAL HISTORY: 1. Marked obesity with a BMI of 52. 2. Hypertension. 3. Elevated cholesterol. 4. Anemia. 5. Diabetes. PAST SURGICAL HISTORY: Previous surgeries include: 1. Right knee replacement in 02/25/2013. 2. Left knee replacement 09/18/2011. ALLERGIES: None. CURRENT MEDICINES: 1. Meloxicam. 2. Glimepiride x1. 3. Januvia. 4. Levothyroxine. 5. Atenolol. 6. Losartan. 7. Indapamide. 8. Ezetimibe. 9. Vitamin D3. 10. Osteo Bi-Flex. 11. Fish oil. 12. Vitamin B12. 13. Multivitamin. 14. Vitamin C. 15. Aspirin 81 mg daily. 16. Tylenol. SOCIAL HISTORY: A 58-year-old male. Normally active. Does a lot of walking with his job, but having difficulty doing that. Does not smoke. No significant alcohol intake. FAMILY HISTORY: Noncontributory. REVIEW OF SYSTEMS: Significant for diabetes. Denies any chest pain or shortness of breath. No history of DVT or PE. He is significantly overweight with a BMI of 52. He has been on a weight loss program recently, but having difficulty with his limit in his activity level. PHYSICAL EXAMINATION: GENERAL: Shows a very large pleasant middle-aged male. Looks to be in reasonably decent health. HEENT: Benign. NECK: Supple. No lymphadenopathy. LUNGS: Clear to auscultation. HEART: Has a regular rate and rhythm. ABDOMEN: Soft, nontender, nondistended. EXTREMITIES: Grossly neurovascularly intact except as follows: Examination of the right hip and leg reveals the patient walks with bit of an antalgic gait. He does limp on his right side. Leg lengths appear pretty equal. He has got some mild chronic venous stasis changes distally. No areas of impending ulceration. He does have pain with hip motion. Internal rotation to neutral, external rotation to 25 degrees. Negative straight leg raise. X-RAYS: X-rays of the right hip reviewed. Shows moderately advanced hip arthritis. He has got fairly concentric loss of his joint space. It has progressed over the past 10 years. He has got subchondral sclerosis. He has got some osteophytes around the acetabulum. ASSESSMENT: A 58-year-old gentleman with a history of bilateral knee replacements in the past with moderately advanced hip DJD. It has progressed significantly particularly over the past 6 months and he has failed all conservative care. This limits his activities and ability to do his job. He has been on a recent weight loss program, but having difficulty doing his limited activities. PLAN: We discussed treatment options. We are going to proceed with a right total hip replacement. The risks and benefits of this procedure were explained to the patient including but not limited to DVT, PE, , infection, neurological injury, vascular injury, bleeding problem, pain, limited range of motion, stiffness, failure to relieve symptoms, incomplete relief of symptoms, need for further surgery in future, fracture, leg length inequality, nerve palsy, dislocation, need for revision surgery. The patient understands and desires to proceed. Informed consent was obtained. We did talk to him about taking his atenolol the morning of surgery. He is planning to be discharged to home using [facility]. I will be seen him back postop about 2 weeks after surgery.
[2019-01-14] MEDS ORDERED: TRANEXAMIC ACID 1,000 MG **IV Pre-op IV SCH (06:00)
[2019-01-14] MEDS ORDERED: SCOPOLAMINE 1.5 MG TDSY TD SCH (06:00)
[2019-01-14] MEDS ORDERED: LR 60ML/HR IV SCH (06:00)
[2019-01-14] MEDS ORDERED: GABAPENTIN 300 MG x 2 PO SCH (06:00)
[2019-01-14] MEDS ORDERED: CEFAZOLIN 3000MG 65 ML IV SCH (06:00)
[2019-01-14] MEDS ORDERED: FAMOTIDINE 20 MG TAB PO SCH (06:00)
[2019-01-14] MEDS ORDERED: ACETAMINOPHEN 500 MG TAB PO SCH (06:00)
[2019-01-14] MEDS ORDERED: METOCLOPRAMIDE HCL 10 MG TABLET PO SCH (06:00)
[2019-01-14] MEDS ORDERED: LR 500ML BOLUS, THEN 15ML/HR IV SCH (06:00)
[2019-01-14] MEDS ORDERED: BUPIVACAINE 0.5 % 5 MG/1 ML PF 10ML VIAL ONE (06:26)
[2019-01-14] MEDS ORDERED: BUPIVACAINE/EPINEPHRINE 0.5% MPF 1:200,000 30 ML VIAL ONE (06:35)
[2019-01-14] MEDS ORDERED: BACITRACIN INJ 50,000 UNIT VIAL ONE (06:36)
[2019-01-14] MEDS ORDERED: MoRPHine SULFATE PF 1 MG/ML 10 ML AMP/VIAL ONE (06:40)
[2019-01-14] MEDS ORDERED: MIDAZOLAM HCL 1 MG/ML 2ML VIAL ONE (06:40)
[2019-01-14] MEDS ORDERED: fentaNYL citrate 100 MCG/2 ML VIAL ONE (06:41)
--- NOTE | 2019-01-14 06:47 | History & Physical Bridge Note ---
Date of Service January 14, 2019 History & Physical Bridge Note I have examined the patient, reviewed the History & Physical and in the interval since the performance of the History & Physical I have noted the following changes of clinical significance: no changes noted
[2019-01-14] MEDS ORDERED: ATROPINE SULFATE 0.1 MG/ML 10ML SYR IV PRN (07:08)
[2019-01-14] MEDS ORDERED: ePHEDrine sulfate 50 MG/ML AMP IV PRN ×2 (07:08→09:18)
[2019-01-14] MEDS ORDERED: LIDOCAINE HCL 2% 2 ML VIAL/AMP(20MG/ML) INFIL ONE (07:33)
[2019-01-14] MEDS ORDERED: PROPOFOL IV EMULSION 10 MG/ML 20 ML VIAL IV ONE ×3 (07:33→07:58)
[2019-01-14] MEDS ORDERED: ePHEDrine sulfate 50 MG/ML SYR ONE (07:59)
--- NOTE | 2019-01-14 08:42 | Post Operative Brief Note ---
Immediate Post Op Note v1 Date of Surgery January 14, 2019 Pre & Post Diagnosis Operation Date: 01/14/19 07:00 Pre-Op Diagnosis: Right Hip Advanced Degenerative Joint Disease Post-Op Diagnosis: Right Hip Advanced Degenerative Joint Disease Procedure Operation Date: 01/14/19 07:00 Actual Procedures p Right Total Hip Arthroplasty--Uncemented(Right) - Mark Hernandez MD Surgeon Mark Hernandez MD Ethylene Oxide Panelboard Operator Alf, PAC Estimated Blood Loss 300 Findings Consistent with Post-Op Diagnosis Fluids 1700 cc Specimens Right Femoral Head Drains Solano Catheter (A 16 Maltese solano catheter was inserted by JEF Allan, without difficulty, clear yellow urine obtained, output to be monitored by Anesthesia.) Anesthesia Type Spinal MAC Complications none Disposition Accompanied Patient To Recovery: Yes Disposition: Recovery Room
--- NOTE | 2019-01-14 09:13 | XRay Report ---
XR hip 1V RT w pelvis CLINICAL HISTORY: IN PACU - A/P PELVIS and LATERAL HIP COMPARISON: 11/04/2018 DISCUSSION: Anatomic alignment post total right hip arthroplasty. Good contact between prosthetic and underlying bone. Expected postoperative soft tissue change IMPRESSION: Anatomic alignment post total right hip arthroplasty. The above report was generated using voice recognition software. It may contain grammatical, syntax or spelling errors. Electronically signed by: Rory Milan M.D. 01/14/2019 9:12 AM
[2019-01-14] MEDS ORDERED: KETOROLAC 30 MG/ML VIAL IV PRN (09:18)
[2019-01-14] MEDS ORDERED: NALBUPHINE HCL INJ 10 MG/ML AMP IV PRN (09:18)
[2019-01-14] MEDS ORDERED: MoRPHine SULFATE 2 MG/ML CARP IV PRN (09:18)
[2019-01-14] MEDS ORDERED: PROMETHAZINE HCL 25 MG in SODIUM CHLORIDE 0.9% 50 ML IV PRN (09:18)
[2019-01-14] MEDS ORDERED: MEPERIDINE HCL 25 MG/ML CARP IV PRN (09:18)
[2019-01-14] MEDS ORDERED: DiphenhydrAMINE HCL 50 MG/ML VIAL IV PRN (09:18)
[2019-01-14] MEDS ORDERED: ONDANSETRON INJ 2 MG/ML 2 ML VIAL IV PRN ×2 (09:18→10:14)
[2019-01-14] MEDS ORDERED: NALOXONE HCL 1 MG in SODIUM CHLORIDE 0.9% 1000ML 1,000 ML IV PRN (09:18)
[2019-01-14] MEDS ORDERED: NALOXONE HCL 0.08 MG in SYRINGE 1.8 ML IV PRN (09:18)
[2019-01-14] MEDS ORDERED: MoRPHine SULFATE PF 1 MG/ML 10 ML AMP/VIAL INT SPINAL ONE (09:18)
[2019-01-14] MEDS ORDERED: LACTATED RINGER'S 500 ML IV PRN (09:18)
[2019-01-14] MEDS ORDERED: HYDROmorphone INJ 0.5 MG/0.5 ML SYR IV PRN (09:18)
[2019-01-14] MEDS ORDERED: NALOXONE HCL 0.4 MG/1 ML VIAL/CARP IV PRN ×2 (09:18→10:14)
[2019-01-14] MEDS ORDERED: NO NARCOTICS OR SEDATIVES SCH (09:30)
[2019-01-14] MEDS ORDERED: DC INTRASPINAL MORPHINE SCH (09:30)
--- NOTE | 2019-01-14 10:13 | Anesthesiology Progress Note ---
Date of Service January 14, 2019 Anesthesia Post Procedure Vital Signs Vital Signs: Temp Pulse Pulse Resp BP Pulse Ox 01/14/19 09:45 57 L 14 113/61 98 01/14/19 09:40 36.3 C L 51 L 13 141/61 H 95 01/14/19 09:30 49 L 14 113/62 95 01/14/19 09:20 54 L 15 99/59 L 97 01/14/19 09:10 53 L 14 135/51 L 95 01/14/19 09:00 52 L 14 137/62 96 01/14/19 08:50 60 19 147/66 H 98 01/14/19 08:42 37.0 C 65 16 124/64 95 01/14/19 05:36 36.9 C 57 L 18 175/82 H 96 Pain Intensity Right Hip: Pain Intensity: 0 Notes Mental Status: alert / awake / arousable and participated in evaluation Patient Amnestic to Procedure: Yes Nausea / Vomiting: adequately controlled Pain: adequately controlled Airway Patency, RR, SpO2: stable & adequate BP & HR: stable & adequate Hydration State: stable & adequate Neuraxial Anesthesia: was administered and sensory block is resolving Anesthetic Complications: no major complications apparent
[2019-01-14] MEDS ORDERED: TAMSULOSIN HCL 0.4 MG CAP PO PRN (10:14)
[2019-01-14] MEDS ORDERED: ALUMINUM/MAGNESIUM SUSP 30 ML UDC PO PRN (10:14)
[2019-01-14] MEDS ORDERED: BISACODYL 10 MG SUPP PR PRN (10:14)
[2019-01-14] MEDS ORDERED: CARBOHYDRATES FOR HYPOGLYCEMIA PO PRN (10:14)
[2019-01-14] MEDS ORDERED: GLUCOSE 40% GEL 15 GM TUBE PO PRN (10:14)
[2019-01-14] MEDS ORDERED: GLIMEPIRIDE 2 MG TAB PO SCH (10:14)
[2019-01-14] MEDS ORDERED: DEXTROSE 50% 50 ML SYRINGE IV PRN (10:14)
[2019-01-14] MEDS ORDERED: MULTIVITAMIN TAB PO SCH (10:14)
[2019-01-14] MEDS ORDERED: MAGNESIUM HYDROXIDE SUSP 30 ML UDC PO PRN (10:14)
[2019-01-14] MEDS ORDERED: GLUCAGON FOR INJ 1 MG VIAL SQ PRN (10:14)
[2019-01-14] MEDS ORDERED: PHARMACY GLYCEMIC MGMT CONSULT STA (10:14)
[2019-01-14] MEDS ORDERED: METOCLOPRAMIDE HCL INJ 5 MG/ML 2 ML VIAL IV PRN (10:14)
[2019-01-14] MEDS ORDERED: ASPIRIN 81 MG ECTAB PO SCH (10:14)
[2019-01-14] MEDS ORDERED: GLUCOSE 10 TABS/TUBE PO PRN (10:14)
[2019-01-14] MEDS ORDERED: SITAGLIPTIN PHOSPHATE 100 MG TAB PO SCH (10:14)
[2019-01-14] MEDS ORDERED: PHARMACY GLYCEMIC MGMT CONSULT PRN (10:27)
[2019-01-14] MEDS: SODIUM CHLORIDE 0.9% 1000ML 1,000 ML IV SCH ×3 (11:05→22:29)
[2019-01-14] MEDS: DOCUSATE SODIUM 100 MG CAP PO SCH ×2 (12:16→21:33)
[2019-01-14] MEDS: KETOROLAC 30 MG/ML VIAL IV SCH ×3 (12:16→22:25)
[2019-01-14] MEDS: INSULIN ASPART 100 UNITS/ML 3 ML PEN SC SCH ×3 (12:25→21:39)
[2019-01-14] MEDS: MULTIVITAMIN TAB PO SCH (12:33)
[2019-01-14] MEDS: ASCORBIC ACID 500 MG TAB PO SCH ×2 (12:33→18:28)
[2019-01-14] MEDS: CHOLECALCIFEROL 1,000 UNITS TAB PO SCH (12:33)
[2019-01-14] MEDS: INDAPAMIDE 1.25 MG TAB PO SCH (12:33)
[2019-01-14] MEDS: LOSARTAN POTASSIUM 50 MG TAB PO SCH (12:33)
[2019-01-14] MEDS: VITAMIN B COMPLEX TAB PO SCH (12:33)
[2019-01-14] MEDS: ASPIRIN 81 MG ECTAB PO SCH ×2 (12:33→21:34)
[2019-01-14] MEDS: CYANOCOBALAMIN 500 MCG TABLET (VITAMIN B-12) PO SCH (12:34)
[2019-01-14] MEDS: OMEGA-3 (PURIFIED FISH OIL) 1 GM CAP PO SCH ×2 (12:34→21:35)
[2019-01-14] MEDS ORDERED: INSULIN GLARGINE SOLOSTAR 100 UNITS/ML 3 ML PEN SC ONE (13:00)
[2019-01-14] MEDS: ACETAMINOPHEN 500 MG TAB PO SCH ×2 (14:28→22:25)
[2019-01-14] MEDS: CEFAZOLIN 2000MG 2,000 MG/15 ML SYR IV SCH ×2 (14:28→22:29)
[2019-01-14] MEDS ORDERED: TRANEXAMIC ACID 1,000 MG in 0.9 % SODIUM CHLORIDE 100 ML IV SCH (14:44)
--- NOTE | 2019-01-14 15:27 | Progress Note ---
DATE: 01/14/2019 SUBJECTIVE: A 58-year-old gentleman postop from a right hip replacement. He is doing well. Not having any pain yet. Denies any chest pain or shortness of breath. Not feeling dizzy or lightheaded. OBJECTIVE: VITAL SIGNS: Temperature 36.4. Vital signs stable. PHYSICAL EXAMINATION: GENERAL: Reveals a pleasant, middle-aged male. He is lying in bed, looks comfortable. LUNGS: Clear to auscultation. HEART: Has regular rate and rhythm. ABDOMEN: Soft, nontender, nondistended. EXTREMITIES: Grossly neurovascularly intact except as follows: Examination of the right leg reveals the leg to be well aligned. Leg lengths are equal. Hip is located. He can plantarflex and has some dorsiflexion, but still just a little bit weak. Slight decreased sensation which he says is baseline due to his neuropathy. Good distal pulse. Brisk refill. X-RAYS: X-rays of the right hip from recovery room were reviewed. It shows right uncemented total hip arthroplasty. Components are in good position. No signs of problems. ASSESSMENT: 58-year-old gentleman postop from a right hip replacement, doing well. Hip is located. His nerve function seems to be a little bit weak on dorsiflexion, but could be related to the local anesthetic versus just the spinal versus other. He does have some underlying neuropathy. We will observe this overnight. PLAN: 1. DVT prophylaxis including thigh-high TEDs, SCDs, and aspirin twice a day. 2. PT/OT. He can weightbear as tolerated. Right total hip protocol. 3. Pain control, doing well with current pain regimen. Really not having any pain yet. 4. IV antibiotics x24 hours. 5. Disposition: He is planning to be discharged to home with some home health once adequately recovered.
[2019-01-14] MEDS: CHECK SCOPOLAMINE PATCH PLACEMENT SCH (15:38)
--- NOTE | 2019-01-14 15:52 | Pharmacy Report ---
Glycemic Control Consultation - Date of Service January 14, 2019 - Scope Scope: Glycemic Pharmacist consulted by Dr Hernandez on 01-14 for glycemic control and to write orders per [facility] inpatient glycemic control protocol - Objective Weight: 170 kg Accuchecks BSG (last 24hrs): 01/14/19 01/14/19 01/14/19 05:27 08:49 10:32 POC Glucose 142 H 176 H 157 H 01/14/19 12:16 POC Glucose 169 H - Recent Pertinent Medications Outpatient Anti-diabetic Regimen: * amaryl 2 mg po bid, Lantus 50 Qam, januvia 100 Qam * A1c = 7.6 % 12-30-18 Risk Factors for Insulin Resistance: * Steroids: none * Recent Surgery: POD 0 * Diet: T2DM - Assessment & Plan Assessment & Plan: ASSESSMENT: * 58 year old male, now s/p right hip arthroplasty - PMHx significant for htn, hld, anemia, type 2 diabetes * Confirmed with patient no Lantus given this am prior to procedure - will dose postop with basal/bolus insulin * No steroids given in OR - however likely hyperglycemia related to stress of surgery PLAN FOR INPATIENT GLYCEMIC CONTROL: * Pt is maintained on oral antidiabetic agents as an outpatient * Oral agents are not recommended for inpatient use d/t drug interactions, changing PO intake, and difficulty titrating for acute hyper/hypoglycemia. ADA recommends re-initiating outpatient oral agents 1-2 days prior to discharge if/when appropriate if they were held on admission. * Will hold oral agents for admission and utilize SQ basal bolus insulin regimen which is the recommended regimen for inpatient glycemic control. * Will initiate weight based insulin dosing for insulin elizabeth patient and titrate based on BSG trends. * Basal insulin * Lantus 35 x1 now (lunch) * Lantus per scale for this evening -for BSG less than 160 mg/dL - give 10 units -for BSG 160-200 mg/dL - give 15 units -for BSG greater than 200 - give 20 units * Bolus insulin - added overnight checks * NovoLog per scale ACHS or Q6hrs while NPO * Goal Range: Low 110 mg/dL - High 140 mg/dL * Correction Factor: 15 mg/dL/unit * Nutritional / Prandial insulin per carb ratio of 1 unit per 5 grams CHO consumed * Please note that the plan above was derived based on current level of insulin resistance and hospital stress. These recommendations are appropriate for inpatient admission only. Plan of care upon discharge will need to be reassessed to avoid potential outpatient hypo/hyperglycemia. Thank you.
[2019-01-14] MEDS: FERROUS GLUCONATE 324 MG TAB PO SCH (18:27)
--- NOTE | 2019-01-14 19:54 | Operative Report ---
DATE OF OPERATION: 01/14/2019 SURGEON: Mark Hernandez MD. REGIONAL MAINTENANCE MANAGER: JEF Appiah. PREOPERATIVE DIAGNOSIS: Right hip degenerative joint disease. POSTOPERATIVE DIAGNOSIS: Right hip degenerative joint disease. PROCEDURE PERFORMED: Right uncemented ceramic on highly cross-linked polyethylene total hip arthroplasty. COMPLICATIONS: None. ESTIMATED BLOOD LOSS: 300 mL. FLUID REPLACEMENT: 1700 mL crystalloid fluid replacement. ANESTHESIA: Spinal. DRAINS: None. SPECIMENS: Right femoral head sent for pathology. OPERATIVE INDICATIONS: The patient is a 58-year-old fairly large gentleman who said he had about a 6-7 month history of markedly increased right hip pain and discomfort, unresponsive to conservative care. X-rays show progressive hip arthritis. He elected to proceed with total hip arthroplasty. OPERATIVE FINDINGS: Revealed a large soft tissue envelope. He did have pretty extensive grade 4 changes of the superior aspect of the femoral head as well as the superior aspect of the acetabulum. With the knee joint fluid, there was kind of floating white colored debris. There was a moderate hip joint effusion. Not a lot of osteophyte formation. OPERATIVE IMPLANTS: Consisted of: 1. Biomet G7 size 58-mm acetabular shell. 2. A 6.5 cancellous acetabular screws, one at 35 mm length and one at 25 mm length. 3. An apex hole eliminator. 4. The highly cross-linked polyethylene liner with a 58 mm outer diameter, 36 mm inner diameter. 5. DePuy Corail size 11 KLA femoral stem. 6. A +5/36 mm ceramic articular ball. OPERATIVE PROCEDURE: The patient was taken to the operating room, identified and placed on the operating table in supine position. All contact areas were appropriately padded. IV antibiotics were provided by anesthesia team. A spinal anesthetic had been implemented in the holding area. The patient was then placed in the left lateral decubitus position. An axillary roll was placed. Stlberg hip positioner was used for positioning. We did spend quite a bit of extra time making sure he was appropriately positioned. The right hip and leg were then prepped and draped in usual sterile fashion. A posterolateral approach to the right hip was then performed through a curvilinear incision centered over the greater trochanter. Sharp dissection was carried through the subcutaneous tissue down to the IT band and gluteal fascia. The IT band and gluteal fascia were incised longitudinally in line of the skin incision. The greater trochanteric bursa was excised. The piriformis and external rotators as well as the posterior capsule were then released from the posterior aspect of the hip joint as a single layer. Great care was taken throughout the procedure to protect the sciatic nerve at all times. Hip was internally rotated and dislocated. Femoral neck osteotomy cut was made with the final cut about 12 mm above the lesser trochanter. Femoral head was removed and sent for pathology. The femur was retracted anteriorly. Attention was then drawn to the acetabulum The acetabulum labrum was excised. The pulvinar fat was excised. Sequential reaming of the acetabulum was then performed beginning with a size 49 and progressing up to 57. A 58 mm Biomet G7 acetabular shell was then placed in about 40 degrees of lateral opening and 20 degrees of anteversion. It was fixed with two 6.5 cancellous acetabular screws. A trial liner was placed. Attention was then drawn to the femur. The proximal femur was entered with [employer] cutter followed by canal finder. I broached beginning with a size 8 and progressing up to 11. Good fit with the 11. I was not sure I could get the distal portion down in the bigger implants, so we elected to use this. Calcar reamer was used to smoothen off the calcar. I trialed the hip and the +5 articular ball provided full stability and full extension and external rotation, flexion to 90 degrees, internal rotation to over 50 degrees. We elected to use these implants. All trial implants were removed. An apex hole eliminator was placed. Highly cross-linked polyethylene liner was placed. A DePuy Corail size 11 KLA femoral stem was impacted in position. A +5/36 mm ceramic articular ball was placed. Hip was located and once again found to be stable. Attention was then drawn toward closing. The wound was irrigated with copious amounts of pulsatile lavage solution. We did inject locally with 60 mL of 0.5% Marcaine with epinephrine. The posterior capsule and external rotators were then repaired through drill holes in the posterior trochanter as a single layer with #2 Ti-Cron suture. The IT band and gluteal fascia were then closed with #1 PDS suture in running fashion. Subcutaneous tissue was then closed with 2 layers, the deep layer with #2 Vicryl suture and subcutaneous tissues with 2-0 Dexon suture in a buried interrupted fashion. The skin was then closed with skin shari. Leg was then cleaned and dried and a sterile dressing of Xeroform, 4 x 4's, ABD pad and foam tape were applied. The patient then transferred to the recovery room in stable condition. The patient tolerated the procedure well with no complications. All needle and sponge counts were correct at the end of the operation. I attest to the content of the Intraoperative Record and any orders documented therein. Any exception s are noted below.
[2019-01-14] MEDS: SENNA 8.6 MG TAB PO SCH (21:35)
[2019-01-14] MEDS: EZETIMIBE 10 MG TABLET PO SCH (21:36)
[2019-01-14] MEDS: INSULIN GLARGINE SOLOSTAR 100 UNITS/ML 3 ML PEN SC SCH (21:38)
[2019-01-15] MEDS: CHECK SCOPOLAMINE PATCH PLACEMENT SCH (00:08)
[2019-01-15] MEDS: INSULIN ASPART 100 UNITS/ML 3 ML PEN SC SCH ×6 (00:10→20:53)
[2019-01-15] MEDS ORDERED: OXYCODONE HCL IR 5 MG TAB (IMMEDIATE RELEASE) PO PRN (03:18)
[2019-01-15] MEDS ORDERED: HYDROmorphone INJ 0.5 MG/0.5 ML SYR IV PRN (03:18)
[2019-01-15] MEDS: KETOROLAC 30 MG/ML VIAL IV SCH ×4 (04:47→21:17)
[2019-01-15 06:00] LABS: Basophils # (auto) 0.02 K/uL (0-0.2); Basophils % (auto) 0.2 %; Eosinophils # (auto) 0.09 K/uL (0-0.5); Eosinophils % (auto) 0.8 %; Hematocrit (blood only) 31.3 % (42-52); Hemoglobin 10.5 g/dL (14.0-18.0); Immature Granulocytes # (auto) 0.04 K/uL (0.00-0.02); Immature Granulocytes % (auto) 0.3 %; Lymphocytes % (auto) 9.3 %; Mean Corpuscular Hgb Conc 33.5 g/dL (32-36); Mean Corpuscular Volume 86.7 fL (80-100); Mean Platelet Volume 10.6 fL (7.4-10.4); Monocytes # (auto) 0.93 K/uL (0.11-0.59); Monocytes % (auto) 7.8 %; Neutrophils % (auto) 81.6 %; Platelet Count 152 K/uL (130-400); RDW Coefficient of Variation 14.5 % (11.5-14.5); RDW Standard Deviation 46.1 fL (36.4-46.3); Red Blood Count 3.61 M/uL (4.7-6.1); White Blood Count 11.88 K/uL (4.8-10.8)
[2019-01-15] MEDS: ACETAMINOPHEN 500 MG TAB PO SCH ×3 (06:07→21:17)
[2019-01-15] MEDS: LEVOTHYROXINE SODIUM 150 MCG TABLET PO SCH (06:07)
[2019-01-15 06:38] LABS: BUN Creatinine Ratio 20.8 (10-20); Calcium 8.9 mg/dl (8.5-10.1); Creatinine Clr Calc Pharmacy 128.9 ml/min; Est GFR (African American) 95.7; Est GFR (Non-African American) 82.6; Potassium 4.2 mmol/L (3.5-5.1)
--- NOTE | 2019-01-15 08:36 | Progress Note ---
DATE: 01/15/2019 SUBJECTIVE: A 58-year-old gentleman postop day 1 from right hip replacement. He is doing well. Pain is controlled. No chest pain or shortness of breath. Not feeling dizzy or lightheaded. OBJECTIVE: VITAL SIGNS: Temperature is 37.5. Vital signs stable. GENERAL: Physical examination shows a pleasant, middle-aged male. He is sitting up in bed, looks pretty comfortable. EXTREMITIES: Examination of the right hip and leg reveals the hip to be located. Dressing is clean, dry and intact. Thigh is soft and supple. He is neurologically intact. He can normally dorsiflex and plantarflex his foot. No residual weakness. LABORATORY DATA: Hemoglobin 10.5, hematocrit 31.3. Electrolytes are stable. ASSESSMENT: A 58-year-old gentleman postop day 1 from right hip replacement, doing reasonably well. Pain is controlled. Hip is located. He is neurologically intact. He is anemic, but without symptoms. PLAN: 1. DVT prophylaxis including thigh-high TEDs, SCDs, and aspirin twice a day. 2. PT/OT. Weight bear as tolerated. Right total hip protocol. 3. Pain control, doing pretty well with current pain regimen. 4. Disposition: Plan to discharge to home with some home health once adequately recovered. 5. Anemia. Will continue iron supplementation. Currently, asymptomatic.
[2019-01-15] MEDS: LOSARTAN POTASSIUM 50 MG TAB PO SCH (08:41)
[2019-01-15] MEDS: FERROUS GLUCONATE 324 MG TAB PO SCH ×2 (08:41→18:14)
[2019-01-15] MEDS: MULTIVITAMIN TAB PO SCH (08:41)
[2019-01-15] MEDS: DOCUSATE SODIUM 100 MG CAP PO SCH ×2 (08:41→20:24)
[2019-01-15] MEDS: OMEGA-3 (PURIFIED FISH OIL) 1 GM CAP PO SCH ×2 (08:42→20:24)
[2019-01-15] MEDS: ASPIRIN 81 MG ECTAB PO SCH ×2 (08:42→20:24)
[2019-01-15] MEDS: VITAMIN B COMPLEX TAB PO SCH (08:42)
[2019-01-15] MEDS: CYANOCOBALAMIN 500 MCG TABLET (VITAMIN B-12) PO SCH (08:43)
[2019-01-15] MEDS: INDAPAMIDE 1.25 MG TAB PO SCH (08:43)
[2019-01-15] MEDS: CHOLECALCIFEROL 1,000 UNITS TAB PO SCH (08:43)
[2019-01-15] MEDS: ASCORBIC ACID 500 MG TAB PO SCH ×3 (08:43→18:14)
[2019-01-15] MEDS: ATENOLOL 50 MG TABLET PO SCH (08:43)
[2019-01-15] MEDS: TAPENTADOL HCL ER 50 MG TABCR PO SCH ×2 (09:02→20:24)
[2019-01-15] MEDS ORDERED: INSULIN GLARGINE SOLOSTAR 100 UNITS/ML 3 ML PEN SC ONE (09:15)
--- NOTE | 2019-01-15 10:03 | Anesthesiology Progress Note ---
Date of Service January 15, 2019 Anesthesia Post Procedure Vital Signs Vital Signs: Temp Pulse Pulse Resp BP Pulse Ox 01/15/19 07:06 37.5 C 66 18 144/76 H 96 01/15/19 03:00 36.7 C 73 18 118/72 98 01/15/19 01:31 20 92 01/14/19 23:02 36.6 C 78 18 119/76 96 01/14/19 23:00 18 96 01/14/19 22:04 15 90 01/14/19 21:00 16 93 01/14/19 20:37 36.6 C 60 16 122/83 95 01/14/19 20:00 16 95 01/14/19 19:00 59 L 20 01/14/19 18:00 16 58 L 01/14/19 17:11 18 95 01/14/19 16:02 16 55 L 01/14/19 15:08 36.5 C 56 L 16 110/66 95 01/14/19 14:00 16 97 01/14/19 13:02 54 L 15 136/76 100 01/14/19 13:00 16 100 01/14/19 12:00 53 L 16 130/77 96 01/14/19 11:06 16 96 01/14/19 11:01 36.4 C L 50 L 18 126/74 96 01/14/19 10:28 50 L 18 123/78 98 Pain Intensity Right Hip: Pain Intensity: 0 Notes Mental Status: alert / awake / arousable and participated in evaluation Nausea / Vomiting: adequately controlled Pain: adequately controlled Airway Patency, RR, SpO2: stable & adequate BP & HR: stable & adequate Hydration State: stable & adequate
[2019-01-15] MEDS: EZETIMIBE 10 MG TABLET PO SCH (20:24)
[2019-01-15] MEDS: SENNA 8.6 MG TAB PO SCH (20:24)
[2019-01-15] MEDS: INSULIN GLARGINE SOLOSTAR 100 UNITS/ML 3 ML PEN SC SCH (20:51)
[2019-01-16] MEDS: KETOROLAC 30 MG/ML VIAL IV SCH (04:15)
[2019-01-16] MEDS: ACETAMINOPHEN 500 MG TAB PO SCH (06:08)
[2019-01-16] MEDS: LEVOTHYROXINE SODIUM 150 MCG TABLET PO SCH (06:09)
[2019-01-16] MEDS: FERROUS GLUCONATE 324 MG TAB PO SCH (07:39)
[2019-01-16] MEDS: ASCORBIC ACID 500 MG TAB PO SCH ×2 (07:39→07:42)
[2019-01-16] MEDS: CHOLECALCIFEROL 1,000 UNITS TAB PO SCH (07:40)
[2019-01-16] MEDS: CYANOCOBALAMIN 500 MCG TABLET (VITAMIN B-12) PO SCH (07:40)
[2019-01-16] MEDS: DOCUSATE SODIUM 100 MG CAP PO SCH (07:42)
[2019-01-16] MEDS: LOSARTAN POTASSIUM 50 MG TAB PO SCH (07:42)
[2019-01-16] MEDS: TAPENTADOL HCL ER 50 MG TABCR PO SCH (07:43)
[2019-01-16] MEDS: INDAPAMIDE 1.25 MG TAB PO SCH (07:43)
[2019-01-16] MEDS: MULTIVITAMIN TAB PO SCH (07:43)
[2019-01-16] MEDS: ASPIRIN 81 MG ECTAB PO SCH (07:43)
[2019-01-16] MEDS: ATENOLOL 50 MG TABLET PO SCH (07:44)
[2019-01-16] MEDS: OMEGA-3 (PURIFIED FISH OIL) 1 GM CAP PO SCH (07:44)
[2019-01-16] MEDS: VITAMIN B COMPLEX TAB PO SCH (07:44)
[2019-01-16] MEDS: INSULIN ASPART 100 UNITS/ML 3 ML PEN SC SCH (07:49)
--- NOTE | 2019-01-16 08:47 | Progress Note ---
DATE: 01/16/2019 SUBJECTIVE: A 58-year-old gentleman postop day 2 from right hip replacement. He is doing well. Pain is controlled. Therapy is going well. No chest pain or shortness of breath. Not feeling dizzy or lightheaded. OBJECTIVE: VITAL SIGNS: Temperature is 36.7. Vital signs stable. GENERAL: Physical examination reveals a pleasant, large, middle-aged male. He is sitting up in his bedside chair and looks comfortable. EXTREMITIES: Examination of the right hip reveals the dressing to be clean, dry and intact. Thigh is soft and supple. Hip is located. Leg lengths are equal. He is neurologically intact. ASSESSMENT: A 58-year-old gentleman postop day 2 from right hip replacement, doing well. His pain is controlled. Hip is located. He is neurologically intact. PLAN: 1. DVT prophylaxis including thigh-high TEDs, SCDs, and aspirin twice a day. 2. PT/OT. Weight bear as tolerated. Right total hip protocol. 3. Pain control. Doing well with current pain regimen. 4. Disposition: Plan to discharge to home with some home health later today.
[2019-01-16] MEDS ORDERED: INSULIN GLARGINE SOLOSTAR 100 UNITS/ML 3 ML PEN SC SCH (09:00)
--- NOTE | 2019-01-17 09:26 | Discharge Summary ---
Date of Service January 24, 2019 Discharge Data Consultations 01/15/19 08:00 Consult Case Management - Discharge Planning Routine Procedures Performed Operation Date: 01/14/19 07:00 Actual Procedures p Right Total Hip Arthroplasty--Uncemented(Right) - Mark Hernandez MD
--- NOTE | 2019-01-19 16:31 | Discharge Summary ---
ADMITTING PHYSICIAN AND SURGEON: Dr. Mark Hernandez. ADMITTING DIAGNOSIS: Right hip degenerative joint disease. SURGERY PERFORMED: Right total hip arthroplasty. SECONDARY DIAGNOSES: Marked obesity, hypertension, elevated cholesterol, anemia, diabetes. CONSULTS: None obtained. HISTORY AND PHYSICAL EXAMINATION: Well documented in the patient's chart. HOSPITAL COURSE: The patient was admitted on 01/14/2019 underwent total hip arthroplasty, tolerated the procedure well and there were no complications. He was transferred to the PACU postoperatively and later to the orthopedic for further care. He was given Ancef for antibiotic prophylaxis, KEYON stockings, SCDs and aspirin for DVT prophylaxis. Hemoglobin, hematocrit and vital signs were monitored during his hospital stay and remained stable, did not require any blood transfusions. There were no complications. By postoperative day 2, he was tolerating a diabetic diet. Pain was controlled with oral pain medicine. He was participating in physical therapy. On postop day 22016, he was discharged home, set up with home health services, given printed discharge instructions including new prescriptions for extra strength Tylenol, aspirin, iron supplement and oxycodone. Continue his home medications, continue physical therapy, weightbearing as tolerated, KEYON stockings, total hip precautions. Followup in approximately 2 weeks postoperatively or sooner if there are any problems or concerns.
== END 2019-01-16 11:14 | disposition home health service (06) | DRG 470 ==
LOC: ASU 04:59 → 3E 09:59

== ENCOUNTER 2022-07-25 06:30 | Observation (INO) ==
--- NOTE | 2022-05-16 16:52 | PAT Medication Instructions ---
Medication Instructions Date of Service May 16, 2022 Home Medications Medication Instructions Recorded ezetimibe 10 mg tablet See Rx Instructions .Route 07/29/21 .COMPLEX #90 tabs levothyroxine 150 mcg tablet See Rx Instructions .Route 07/29/21 .COMPLEX #90 tabs losartan 100 mg tablet 100 mg PO QAM #90 tabs 08/28/21 indapamide 1.25 mg tablet 1.25 mg PO QAM #90 tabs 10/29/21 atenolol 100 mg tablet 100 mg PO QAM #90 tabs 02/26/22 meloxicam 15 mg tablet 15 mg PO QPM #90 tabs 03/07/22 diabetic supplies, miscellan. #150 ea 04/17/22 insulin aspart U-100 100 unit/mL See Rx Instructions .Route 04/17/22 (3 mL) subcutaneous pen (Novolog .COMPLEX #15 SYRINGES Flexpen U-100 Insulin aspart) insulin glargine 100 unit/mL (3 52 unit (0.52 mL) subcut BID #30 mL 04/17/22 mL) subcutaneous pen (Lantus Solostar U-100 Insulin) cholecalciferol (vitamin D3) 25 mcg (1,000 unit) capsule (Vitamin D3) 1 dose PO HS glucosamine-chondroitin 250 mg-200 mg tablet (Osteo Bi-Flex) 1 dose PO BID multivitamin (Multiple Vitamins tablet) 1 tab PO QAM acetaminophen 500 mg tablet 1,000 mg PO Q8H PRN Fever Or Pain omega 4-qsv-yag-fish oil 1,000 mg (120 mg-180 mg) capsule (Fish Oil) 1 cap PO BID aspirin 81 mg tablet,delayed release 81 mg PO HS ezetimibe 10 mg tablet See Rx Instructions .Route levothyroxine 150 mcg tablet See Rx Instructions losartan 100 mg tablet 100 mg PO QAM indapamide 1.25 mg tablet 1.25 mg PO QAM atenolol 100 mg tablet 100 mg PO QAM meloxicam 15 mg tablet 15 mg PO QPM insulin aspart U-100 100 unit/mL (3 mL) subcutaneous pen (Novolog Flexpen U-100 Insulin aspart) See Rx Instructions insulin glargine 100 unit/mL (3 mL) subcutaneous pen (Lantus Solostar U-100 Insulin) 52 unit (0.52 mL) subcut BID Allergy 1 dose PO QAM ASK your surgeon for instructions meloxicam 15 mg tablet 15 mg PO QPM STOP taking 2 weeks before surgery glucosamine-chondroitin 250 mg-200 mg tablet (Osteo Bi-Flex) 1 dose PO BID omega 4-vyd-vfb-fish oil 1,000 mg (120 mg-180 mg) capsule (Fish Oil) 1 cap PO BID DO NOT take the morning of surgery multivitamin (Multiple Vitamins tablet) 1 tab PO QAM losartan 100 mg tablet 100 mg PO QAM indapamide 1.25 mg tablet 1.25 mg PO QAM insulin aspart U-100 100 unit/mL (3 mL) subcutaneous pen (Novolog Flexpen U-100 Insulin aspart) See Rx Instructions Allergy 1 dose PO QAM Take morning of surgery With a small sip of water, OTHERWISE NOTHING TO EAT OR DRINK AFTER MIDNIGHT: acetaminophen 500 mg tablet 1,000 mg PO Q8H PRN Fever Or Pain (if needed) aspirin 81 mg tablet,delayed release 81 mg PO HS (unless surgeon directed otherwise) levothyroxine 150 mcg tablet See Rx Instructions atenolol 100 mg tablet 100 mg PO QAM Take evening before surgery cholecalciferol (vitamin D3) 25 mcg (1,000 unit) capsule (Vitamin D3) 1 dose PO HS acetaminophen 500 mg tablet 1,000 mg PO Q8H PRN Fever Or Pain (if needed) ezetimibe 10 mg tablet See Rx Instructions insulin aspart U-100 100 unit/mL (3 mL) subcutaneous pen (Novolog Flexpen U-100 Insulin aspart) See Rx Instructions insulin glargine 100 unit/mL (3 mL) subcutaneous pen (Lantus Solostar U-100 Insulin) 52 unit (0.52 mL) subcut BID Insulin Dependent Diabetic Patients * Test your blood sugar the morning of surgery * If Blood Sugar is GREATER THAN 150, take HALF of your regular dose of: insulin glargine 100 unit/mL (3 mL) subcutaneous pen (Lantus Solostar U-100 Insulin) (Take 26 units) * If Blood Sugar is LESS THAN 150, DO NOT TAKE ANY: insulin glargine 100 unit/mL (3 mL) subcutaneous pen (Lantus Solostar U-100 Insulin) 52 unit (0.52 mL) subcut BID Other Notes If you have any questions please call us at [phone] or [phone] or [phone] or [phone]
--- NOTE | 2022-05-20 14:30 | Anesthesiology Consultation ---
Date of Service May 20, 2022 Assessment & Plan (1) Encounter for pre-operative examination: - COVID screening: Per assessment on 05/20: No known COVID-19 positive contacts or current COVID-19 related symptoms. Travel screen- negative. At surgeon discretion if preop Covid testing being done. - S/P Right FAIZAN (01/14/19): SAB at L3-4 (x3 attempts) at [facility] - Outpatient joint assessment: Pt currently scheduled for inpatient pathway. If surgeon requests review for outpatient joint pathway, patient is not acceptable candidate for outpatient joint program from anesthesia standpoint. - Cardiology office visit (01/30/22): "Multiple CAD risk factors including family history of CAD and premature CAD, personal history of diabetes mellitus, pers onal history of hypertension, and personal history of dyslipidemia.. Utilizing his most recent lipid profile and other clinical variables his estimated 10 year ASCVD risk is high at 20.7%. With optimal treatment is reduced to 6.3%.. History of severe and significant statin intolerance. Even at low doses severe myalgias and arthralgias. Also cognitive dysfunction. In adequate control of LDL on Zetia.. No anginal type symptoms at this time.. Systolic pressure today minimally elevated. Diastolic pressure controlled. Electrocardiogram does reveal voltage for LVH.. Suspect that he has severe underlying sleep apnea. His body habitus would certainly predispose him to obstructive sleep apnea.. Would strongly recommend that the patient be on a PCSK9 inhibitor such as Repatha or Praluent. He has significant CAD risk factors and a high 10 year ASCVD risk with his current lipid profile.. Echocardiogram to assess LV and RV function, valvular function, and LV wall thickness." Patient did trial of Repatha- stopped because of significant joint pain reaction* - Hx difficult intubation: Right TKA (02/25/2013)- Per [facility] anesthesia records: A ttempted CSE. Unable to perform with repeated attempts at L3-4, L4-5. Switched to GA. Awake intubation discussed with patient due to physical and agreed upon. Fiberoptic intubation, atraumatic (not definitely noted if done awake or not- pt does not have memory of intubation) per records. > No subsequent general anesthesia records since. Weight at time 400# (current weight 405#). Case reviewed with Dr. Vitale. Special indicators/OR flagged for difficult intubation. Surgeon's office/OR made aware of recommendation for patient to be scheduled as earlier case but not first case ideally* Chart Review Chart Review: Acceptable Risk for Surgery (pending evaluation AM DOS) and Patient seen in Pre Admission Testing Teaching & Discussion Pre-Anesthesia Teaching/Discussion Notes: Instructed NPO after midnight before surgery,except medications with 15 cc of water. Medication instructions provided according to the PAT guidelines. History Surgery Operation Date: 06/06/22 11:40 Proposed Procedures p Left Reverse Total Shoulder Arthroplasty - Chu Eli, Height/Weight Height: 5 ft 9 in Weight: 183.8 kg Allergies Allergy/AdvReac Type Severity Reaction Status Date / Time cashew nut Allergy Verified 05/14/22 08:49 dulaglutide [From Trulicity] AdvReac Intermediate Irritability, Verified 05/20/22 10:18 rash sitagliptin [From Januvia] AdvReac Intermediate Constipatio Verified 05/20/22 10:18 n metformin AdvReac Unknown Diarrhea Verified 05/20/22 10:18 mometasone furoate AdvReac Unknown Nose Verified 05/20/22 10:18 bleeds, "dryness" simvastatin AdvReac Unknown Mylagia Verified 05/14/22 08:49 evolocumab AdvReac Joint Pain Verified 05/14/22 08:49 [From Repatha SureClick] Fabric Softeners Allergy Unknown Skin rash Uncoded 05/20/22 10:18 ("snuggles") Medications Home Medications Medication Instructions Recorded Confirmed Last Taken cholecalciferol (vitamin D3) 25 1 dose PO HS 12/24/18 05/14/22 03/18/21 mcg (1,000 unit) capsule (Vitamin D3) glucosamine-chondroitin 250 mg-200 1 dose PO BID 12/24/18 05/14/22 03/18/21 mg tablet (Osteo Bi-Flex) multivitamin (Multiple Vitamins 1 tab PO QAM 12/27/18 05/14/22 03/18/21 06:30 tablet) acetaminophen 500 mg tablet 1,000 mg PO Q8H PRN Fever Or Pain 06/10/19 05/14/22 03/18/21 16:00 omega 2-okh-opc-fish oil 1,000 mg 1 cap PO BID 06/10/19 05/14/22 03/18/21 19:00 (120 mg-180 mg) capsule (Fish Oil) aspirin 81 mg tablet,delayed 81 mg PO HS 08/05/20 05/14/22 08/04/20 release ezetimibe 10 mg tablet See Rx Instructions .Route 07/29/21 05/14/22 Unknown .COMPLEX #90 tabs levothyroxine 150 mcg tablet See Rx Instructions .Route 07/29/21 05/14/22 Unknown .COMPLEX #90 tabs losartan 100 mg tablet 100 mg PO QAM #90 tabs 08/28/21 05/14/22 Unknown indapamide 1.25 mg tablet 1.25 mg PO QAM #90 tabs 10/29/21 05/14/22 Unknown atenolol 100 mg tablet 100 mg PO QAM #90 tabs 02/26/22 05/14/22 Unknown meloxicam 15 mg tablet 15 mg PO QPM #90 tabs 03/07/22 05/14/22 Unknown diabetic supplies, miscellan. #150 ea 04/17/22 04/17/22 Unknown insulin aspart U-100 100 unit/mL See Rx Instructions .Route 04/17/22 05/14/22 Unknown (3 mL) subcutaneous pen (Novolog .COMPLEX #15 SYRINGES Flexpen U-100 Insulin aspart) insulin glargine 100 unit/mL (3 52 unit (0.52 mL) subcut BID #30 mL 04/17/22 05/14/22 Unknown mL) subcutaneous pen (Lantus Solostar U-100 Insulin) Allergy 1 dose PO QAM 05/14/22 05/14/22 Unknown Past Medical History Medical History Acid reflux Rare Anemia Chronic, hgb baseline 12-13 range per chart review Back problem Lumbar region arthritis Diabetes IDDM High blood pressure High cholesterol History of kidney stones History of sleep apnea No device Hypothyroidism Morbid (severe) obesity due to excess calories Sacroiliac joint pain Stenosis, cervical spine Exercise / Class Metabolic Activity III < 4 Walking/Shop/Light housework (No CP or SOB with daily activities) Past Family History Family History Brother Colon cancer Brother Diabetes Sister Diabetes Other No family history of adverse response to anesthesia Past Surgical History Surgical History Difficult airway for intubation Right TKA (02/25/2013)- Per [facility] anesthesia records: Attempted CSE. Unable to perform with repeated attempts at L3-4, L4-5. Switched to GA. Awake intubation discussed with patient due to physical and agreed upon. Fiberoptic intubation, atraumatic (not definitely noted if done awake or not- pt does not have memory of intubation) per records. > No subsequent general anesthesia records since. Weight at time 400# History of arthroscopy of left knee History of carpal tunnel release of both wrists History of colonoscopy History of lithotripsy History of right hip replacement Right FAIZAN (01/14/19): SAB at L3-4 (x3 attempts) at [facility] History of total left knee replacement History of total right knee replacement Past Anesthesia History Difficult Airway and No Family Hx of Anesthesia Complications Right TKA (02/25/2013)- Per [facility] anesthesia records: Attempted CSE. Unable to perform with repeated attempts at L3-4, L4-5. Switched to GA. Awake intubation discussed with patient due to physical and agreed upon. Fiberoptic intubation, atraumatic (not definitely noted if done awake or not- pt does not have memory of intubation) per records. > No subsequent general anesthesia records since. Weight at time 400# History of PONV No Hx of PONV and No Hx of Motion Sickness Social History Smoking Status: Never smoker Do You Dip or Chew Tobacco: No Hx Alcohol Use: No Hx Substance Use: No substance use type: does not use Review of Systems Patient denies chest pain, shortness of breath, fever, chills, cough, wheezing, palpitations. Physical Exam Vital Signs VITALS BP 157/74 P 56 TEMP 98.2 SP02 96%RA RESP 16 PHYSICAL Mildly decreased cervical extension range of motion. Full TMJ range of motion. TMD 3 finger breaths (difficult to palpate) Mallampati Score 2 Dentition: intact, + crown (molar) Lungs: clear throughout to auscultation Cardiac: regular rate and rhythm, I/ systolic murmur Spine: normal Carotid arteries: negative bruit Extremities: 1+ pitting edema Very thick neck Lab Results Anesthesia Preop Results Results Anesthesia Widget: WBC 9.08 K/ul (4.8-10.8) 05/20/22 Hgb 11.5 g/dl (14.0-18.0) L 05/20/22 Hct 35.5 % (40.1-51.0) L 05/20/22 Plt 191 K/uL (130-400) 05/20/22 Na 139 mmol/L (136-145) 05/20/22 K 3.8 mmol/L (3.5-5.1) 05/20/22 Cl 103 mmol/L (98-107) 05/20/22 CO2 30 mmol/L (21-32) 05/20/22 BUN 20 mg/dl (6-23) 05/20/22 Creat 0.95 mg/dl (0.6-1.4) 05/20/22 Glucose Level 102 mg/dl (70-99(Fasting)) H 05/20/22 PT 11.3 Seconds (9.0-12.0) 05/20/22 PTT 28.2 Seconds (21.0-31.0) 05/20/22 INR 1.1 (0.9-1.1) 05/20/22 TSH 2.562 uIu/ml (0.300-4.500) 04/07/22 HA1c 7.2 % (4.5-5.6) H 05/20/22 Blood Type A Positive 05/20/22 Antibody Screen NEGATIVE 05/20/22 Testing Electrocardiogram Date: 01/30/22 Sinus bradycardia with marked sinus arrhythmia, PAC. 59 bpm. RBBB. Voltage criteria for LVH. Chest X-Ray Date: 05/20/22 FINDINGS: There are low lung volumes. No pneumothorax. No pleural effusions. The cardiac silhouette remains mildly enlarged. No new focal lung consolidations to suggest pneumonia. No evidence for pulmonary edema. IMPRESSION: No significant change compared to the prior study. No acute process. Echocardiogram Date: 03/04/22 EF 55-60%. No regional motion abnormalities. Moderate LVH. Moderate RVD. Mild LAD. Moderate RAD. Trace TR. Cervical Spine Date: 10/10/21 X-ray: No acute cervical spine fracture or subluxation within visualized portions of the cervical spine. C7 partially obscured on this exam. Moderate to severe multilevel degenerative disc disease and facet arthrosis within the cervical spine. COVID-19 Risk Screen Screening Information COVID-19 Screen Date: 05/20/22 Exposure 21 Days Family/Household +COVID Last 21 Days: No Exposure 10 Days Any COVID Exposure Last 10 Days: No Symptoms Last 10 Days Experienced COVID Sx Last 10 Days: No + COVID 0-90 Days COVID + in Last 0-90 Days: No
--- NOTE | 2022-07-24 08:15 | History & Physical Report ---
Date of Service July 24, 2022 Assessment & Plan (1) Osteoarthritis of left shoulder: We will proceed with a left reverse shoulder arthroplasty. Postoperatively he will be placed in a sling and kept overnight for postoperative medical management. He plans to use energy physical therapy upon discharge. History of Present Illness Chief Complaint: Osteoarthritis of the left shoulder. Primary Care Provider: Marilyn Fletcher PA-C Ethan is a pleasant 61-year-old male who is been doing chronic increasing left shoulder pain. X-rays and clinical examination have been diagnostic for advanced osteoarthritis of the left shoulder. After failing conservative treatment, he has elected proceed with a left reverse shoulder arthroplasty.. Allergies Allergy/AdvReac Type Severity Reaction Status Date / Time cashew nut Allergy Verified 07/22/22 08:35 dulaglutide [From Trulicity] AdvReac Intermediate Irritability, Verified 07/22/22 08:35 rash sitagliptin [From Januvia] AdvReac Intermediate Constipatio Verified 07/22/22 08:35 n metformin AdvReac Unknown Diarrhea Verified 07/22/22 08:35 mometasone furoate AdvReac Unknown Nose Verified 07/22/22 08:35 bleeds, "dryness" simvastatin AdvReac Unknown Mylagia Verified 07/22/22 08:35 evolocumab AdvReac Joint Pain Verified 07/22/22 08:35 [From Repatha SureClick] Fabric Softeners Allergy Unknown Skin rash Uncoded 07/22/22 08:35 ("snuggles") Home Medications Medication Instructions Recorded Confirmed Type cholecalciferol (vitamin D3) 25 1 dose PO HS 12/24/18 07/22/22 History mcg (1,000 unit) capsule (Vitamin D3) glucosamine-chondroitin 250 mg-200 1 dose PO BID 12/24/18 07/22/22 History mg tablet (Osteo Bi-Flex) multivitamin (Multiple Vitamins 1 tab PO QAM 12/27/18 07/22/22 History tablet) acetaminophen 500 mg tablet 1,000 mg PO Q8H PRN Fever Or Pain 06/10/19 07/22/22 History omega 9-iik-suq-fish oil 1,000 mg 1 cap PO BID 06/10/19 07/22/22 History (120 mg-180 mg) capsule (Fish Oil) aspirin 81 mg tablet,delayed 81 mg PO HS 08/05/20 07/22/22 History release indapamide 1.25 mg tablet 1.25 mg PO QAM #90 tabs 10/29/21 07/22/22 Rx atenolol 100 mg tablet 100 mg PO QAM #90 tabs 02/26/22 07/22/22 Rx meloxicam 15 mg tablet 15 mg PO QPM #90 tabs 03/07/22 07/22/22 Rx insulin aspart U-100 100 unit/mL See Rx Instructions .Route 04/17/22 07/22/22 Rx (3 mL) subcutaneous pen (Novolog .COMPLEX #15 SYRINGES Flexpen U-100 Insulin aspart) Allergy 1 dose PO QAM 05/14/22 07/22/22 History diabetic supplies, miscellan. #150 ea 05/28/22 06/12/22 Rx insulin glargine 100 unit/mL (3 52 unit (0.52 mL) subcut BID #90 mL 05/28/22 07/22/22 Rx mL) subcutaneous pen (Lantus Solostar U-100 Insulin) tramadol 50 mg tablet 50 mg PO Q6H PRN pain #30 tabs 06/13/22 07/22/22 Rx losartan 100 mg tablet 100 mg PO QAM #90 tabs 07/14/22 07/22/22 Rx ezetimibe 10 mg tablet 10 mg PO HS 07/22/22 07/22/22 History levothyroxine 150 mcg tablet 150 mcg PO QAM 07/22/22 07/22/22 History Past Med/Surg History Medical History Acid reflux Rare Anemia Chronic, hgb baseline 12-13 range per chart review Back problem Lumbar region arthritis Diabetes IDDM High blood pressure High cholesterol History of kidney stones History of sleep apnea No device Hypothyroidism Morbid (severe) obesity due to excess calories Sacroiliac joint pain Stenosis, cervical spine Surgical History Difficult airway for intubation Right TKA (02/25/2013)- Per [facility] anesthesia records: Attempted CSE. Unable to perform with repeated attempts at L3-4, L4-5. Switched to GA. Awake intu bation discussed with patient due to physical and agreed upon. Fiberoptic intubation, atraumatic (not definitely noted if done awake or not- pt does not have memory of intubation) per records. > No subsequent general anesthesia records since. Weight at time 400# History of arthroscopy of left knee History of carpal tunnel release of both wrists History of colonoscopy History of lithotripsy History of right hip replacement Right FAIZAN (01/14/19): SAB at L3-4 (x3 attempts) at [facility] History of total left knee replacement History of total right knee replacement Family History Brother Colon cancer Brother Diabetes Sister Diabetes Other No family history of adverse response to anesthesia Social History Smoking Status: Never smoker Second Hand Exposure: No; Do You Dip or Chew Tobacco: No; Tobacco Cessation Education Requested by Patient: No Hx Alcohol Use: No Hx Substance Use: No Preferred Language: Croatian Communication Ability: Effective Visual Impairment: No Limitations Sod Farmer Required: No Beliefs That Will Affect Care: None marital status: Single Current Living Situation: Parent Current Living Situation Comment: mother lives w/pt. Other Information That Helps Us Care for You: No Feels Safe at Home: Yes Safety Concerns: Feels Safe At This Time caffeine: Yes Dental Care, Regularly: Yes Seatbelt Use: always Assistive Devices: Glasses Review of Systems All systems reviewed & are unremarkable except as noted in HPI & below. Physical Exam On physical examination of the left shoulder, he has decreased range of motion and crepitus throughout. He has weakness mostly secondary to pain. Most of his pain is located over the glenohumeral joint line.. Constitutional WD/WN, vitals as above Eyes PERRL, conjunctivae normal, anicteric sclerae ENMT external ear and nose normal, oropharynx normal Neck trachea midline, no thyromegaly Respiratory normal respiratory effort, lungs clear to auscultation Cardiovascular RRR, no murmur, no edema Gastrointestinal (Abdomen) normal bowel sounds, soft, nontender, no hepatosplenomegaly Skin no rashes, warm and dry Psychiatric A+Ox3, euthymic affect Results & Data Results & Data Laboratory Results . Diagnostic Findings X-rays of the left shoulder show advanced osteoarthritis with joint space narrowing, osteophyte formation, and [id number] articulation. PG Care Time/CCT Total # of Minutes Spent Total Time Spent with Patient: Total time spent is greater than 50% in coordination of care (as documented) at patient's floor/unit and/or counseling patient: Coding Level of Care Code None Diagnoses Osteoarthritis of left shoulder M19.012
[~2022-07-25 06:30] MED LIST changes: +ACETAMINOPHEN 500 MG TAB PO SCH; -ASPI1TAB66 PO; -ATEN-175 PO; +BUPIVACAINE 0.5 % 5 MG/1 ML PF 10ML VIAL ONE; -CHOL2000 PO; -EZET10TA63 PO; +FAMOTIDINE 20 MG TAB PO SCH; +GABAPENTIN 300 MG CAP PO SCH; -GLIM2TAB2 PO; -GLUC1TAB59 PO; -INDA1TAB3 PO; +Ketorolac (*for OR use only*) 30 MG, dexAMETHasone 4 MG, KETAMINE HCL (**OR use only) 1... INFIL SCH; -LOSA50TA6 PO; +LR 15ML/HR IV SCH; +LR 60ML/HR IV SCH; -MULT-513 PO; -NAPR1TAB9 PO; -OMEG10007 PO; +ORTHO JOINT MIX INFIL SCH; +TRANEXAMIC ACID 1,000 MG **IV Intra-op IV SCH; +TRANEXAMIC ACID 1,000 MG **IV Pre-op IV SCH; +dexAMETHasone 4 MG TAB PO SCH
--- NOTE | 2022-07-25 06:49 | History & Physical Bridge Note ---
Date of Service July 25, 2022 History & Physical Bridge Note I have examined the patient, reviewed the History & Physical and in the interval since the performance of the History & Physical I have noted the following changes of clinical significance: no changes noted
[2022-07-25] MEDS ORDERED: ORTHO JOINT ANESTHETIC ONE (07:05)
[2022-07-25 07:11] LABS: Basophils # (auto) 0.04 K/uL (0-0.2); Basophils % (auto) 0.2 %; Eosinophils # (auto) 0.12 K/uL (0-0.50); Eosinophils % (auto) 0.7 %; Hematocrit (blood only) 34.7 % (40.1-51.0); Hemoglobin 11.7 g/dl (14.0-18.0); Immature Granulocytes # (auto) 0.09 K/uL (0.00-0.02); Immature Granulocytes % (auto) 0.5 %; Lymphocytes # (auto) 1.09 K/uL (1.2-3.4); Lymphocytes % (auto) 6.4 %; Mean Corpuscular Hgb Conc 33.7 g/dL (32.0-36.0); Mean Corpuscular Volume 85.9 fL (80.0-100.0); Mean Platelet Volume 10.8 fL (9.4-12.4); Monocytes # (auto) 1.28 K/uL (0.24-0.82); Monocytes % (auto) 7.6 %; Neutrophils % (auto) 84.6 %; Platelet Count 266 K/uL (130-400); RDW Coefficient of Variation 14.1 % (11.5-14.5); RDW Standard Deviation 44.3 fL (36.4-46.3); Red Blood Count 4.04 M/uL (4.63-6.08); White Blood Count 16.92 K/ul (4.8-10.8)
[2022-07-25] MEDS ORDERED: fentaNYL citrate 100 MCG/2 ML VIAL ONE (07:11)
[2022-07-25] MEDS ORDERED: MIDAZOLAM HCL 1 MG/ML 2ML VIAL ONE (07:11)
[2022-07-25] MEDS ORDERED: fentaNYL citrate 100 MCG/2 ML VIAL IV PRN (07:18)
[2022-07-25] MEDS ORDERED: ATROPINE SULFATE 0.1 MG/ML 10ML SYR IV PRN (07:18)
[2022-07-25] MEDS ORDERED: ONDANSETRON INJ 2 MG/ML 2 ML VIAL IV PRN ×2 (07:18→11:45)
[2022-07-25] MEDS ORDERED: ePHEDrine sulfate 50 MG/ML AMP IV PRN (07:18)
[2022-07-25 07:24] LABS: INR 1.1 (0.9-1.1); Partial Thromboplastin Ratio 1.1; Partial Thromboplastin Time 31.1 Seconds (21.0-31.0); Prothrombin Time 11.8 Seconds (9.0-12.0)
[2022-07-25 07:37] LABS: BUN Creatinine Ratio 28.7 (10-20); Calcium 9.9 mg/dl (8.5-10.1); Creatinine Clr Calc Pharmacy 131.4 ml/min; Est GFR (Non-African American) 87.2 ml/min; Potassium 4.1 mmol/L (3.5-5.1)
[2022-07-25] MEDS ORDERED: LIDOCAINE 2% MPF LOCAL 5 ML VIAL INFIL ONE (09:02)
[2022-07-25] MEDS ORDERED: ONDANSETRON INJ 2 MG/ML 2 ML VIAL ONE (09:02)
[2022-07-25] MEDS ORDERED: PROPOFOL IV EMULSION 10 MG/ML 20 ML VIAL IV ONE (09:02)
--- NOTE | 2022-07-25 09:58 | Operative Report ---
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 long head of biceps tendon Post-Op Diagnosis: Degenerative joint disease left shoulder with tendinopathy long head biceps tendon I identified the patient and participated in the time-out.: Yes Procedure Operation Date: 06/06/22 11:10 <No data on this case meets the specified criteria> Operation Date: 07/25/22 08:10 Actual Procedures p Left Reverse Total Shoulder Arthroplasty(Left) with open biceps tenodesis as a distinct onset procedure (modifier 59) and with extra difficulty in the case due to morbid obesity with a BMI of 57.1 (modifier 22)- Chu Eli, Surgeon Chu Eli, Distribution Center Supervisor Chu Bond PA-C Estimated Blood Loss 250 Findings Consistent with Post-Op Diagnosis Specimens Left humeral head Description of Procedure A CPT code modifier 59: The long head of the biceps tendon was enlarged and in flamed consistent with tendinopathy. A tenodesis was opted. This was a separate and distinct portion of the procedure. For these reasons, a CPT code modifier 59 will be added to this case. CPT code modifier 22: Ethan has a BMI of 57.1. The case took about 50% longer than a normal shoulder replacement due to extra dissection, difficulty with bleeding, and different retractors. Implants used: I used a Biomet Comprehensive reverse total shoulder arthroplasty system with a size 14 press fit micro humeral stem, a +3 offset humeral tray and a standard humeral bearing, a 25 mm small augment baseplate with a 6.5 mm central screw and superior and inferior locking screws, and a size 40 mm eccentric glenosphere. Ethan arrived at [facility] for the above procedure. He was seen in the preoperative holding area and the operative extremity was identified and signed. He was given a preoperative antibiotic, TXA, and an interscalene nerve block. He was taken back to the operating room, laid on table in supine position, and put under general anesthesia. He was then put into the beachchair position. The shoulder was then prepped and draped in sterile fashion. A timeout was done and the patient and the operative extremity was properly identified. A deltopectoral approach was used. Dissection was taken down through the fascia and the deltoid was retracted laterally and the conjoined tendon was retracted medially. The anterior shoulder was exposed. The biceps groove was opened up and the biceps tendon was examined extensively. The biceps tendon demonstrated enlargement and inflammatory changes consistent with longstanding inflammation in the context of osteoarthritis and cuff arthropathy. The long head of the biceps tendon was then tenodesed to the upper border of the pectoralis major. This was a separate and distinct portion of the procedure. The subscapularis was then directly released off the lesser tuberosity with a peel technique. The inferior capsule was released and the humeral head was dislocated. A canal finding reamer was sent down the center of the humeral canal. Sequential reaming up to a size 14 reamer was done. Off that reamer, a proximal humeral resection guide was placed. The proximal humerus was resected at 135 of inclination and 25 of retroversion. Osteophytes were then removed and the glenoid was exposed. Time was spent doing a complete capsular and labral release. The glenoid guide was then placed in the inferior aspect of the glenoid. A 3.2 mm Steinmann pin was then placed into the glenoid vault at 10 of inclination. The glenoid baseplate was then reamed. The final size 25 mm small augment baseplate was then impacted in the place. A 6.5 mm central screw was then placed followed by superior and inferior locking screws. A 40 mm eccentric glenosphere was then impacted into place. Surrounding soft tissues were then injected with 100 cc an orthopedic pain control cocktail. The proximal humerus was then exposed. Sequential broaching of the humerus up to a size 14 broach was done. Off that broach a +3 offset humeral tray was trialed. The shoulder was then reduced, brought through a full range of motion, and felt to be stable. The shoulder was then dislocated and the broach was removed. The final size 14 micro press-fit humeral stem was then impacted into place. A standard humeral bearing was then snapped onto a +3 offset humeral tray. The humeral tray was then impacted onto the humeral stem. The shoulder was once again reduced, brought through a full range of motion, and felt to be stable. The subscapularis was then tenodesed back to the lesser tuberosity with transosseous FiberWire sutures and side to side sutures with the arm in 45 of external rotation. A dilute betadyne lavage was then done for 3 minutes. The joint was then irrigated with normal saline solution. Hemostasis was obtained. The interval was closed with 2-0 Vicryl suture. The skin was then closed with 2-0 Vicryl and shari. A Silverlon dressing was placed and the arm was rested in a regular arm sling. He was then extubated and transferred to a hospital bed. He taken to the postanesthesia care unit in stable condition. He tolerated the procedure well. Chu Bond PA-C, was present for the entire procedure. He was critical for patient positioning, prepping, draping, retraction exposure, wound closure and application of sterile dressing. I attest to the content of the Intraoperative Record and any orders documented therein. Any exceptions are noted below.
--- NOTE | 2022-07-25 10:49 | XRay Report ---
XR shoulder LT min 2V routine HISTORY: 61 years-old Male Post shoulder surgery left shoulder arthroplasty COMPARISON: Chest radiograph 05/20/2022 TECHNIQUE: 2 views of the left shoulder FINDINGS: Reverse left shoulder total joint arthroplasty demonstrates satisfactory alignment. No acute fracture , dislocation or expected opaque foreign body. Overlying skin shari are present along with expected postoperative soft tissue swelling and deep tissue air. IMPRESSION: Reverse left shoulder total joint arthroplasty with expected postoperative changes. ACT 112: Negative or not required by law. The above report was generated using voice recognition software. It may contain grammatical, syntax o r spelling errors. Electronically signed by: Manny Ho M.D. 07/25/2022 10:48 AM
--- NOTE | 2022-07-25 10:59 | Anesthesiology Progress Note ---
Date of Service July 25, 2022 Anesthesia Post Procedure Vital Signs Vital Signs: Temp Pulse Resp BP Pulse Ox O2 Del Method O2 Flow Rate 07/25/22 10:55 97.7 F 67 18 141/74 H 95 Nasal Cannula 2 07/25/22 10:45 68 20 148/80 H 96 Oxymask 4 07/25/22 10:35 70 20 141/73 H 98 Oxymask 4 07/25/22 10:25 69 19 151/80 H 98 Oxymask 6 07/25/22 10:19 97.3 F L 73 16 160/103 H 96 Oxymask 6 07/25/22 08:05 60 18 156/76 H 100 Oxymask 07/25/22 07:12 98.1 F 65 18 179/87 H 94 Room Air Transfer of Care Handoff Completed per policy Notes Mental Status: alert / awake / arousable and participated in evaluation Patient Amnestic to Procedure: Yes Nausea / Vomiting: adequately controlled Pain: adequately controlled Airway Patency, RR, SpO2: stable & adequate BP & HR: stable & adequate Hydration State: stable & adequate Anesthetic Complications: no major complications apparent and Pt Satisfied with anesthetic care
[2022-07-25] MEDS ORDERED: NALOXONE HCL 0.4 MG/1 ML VIAL/CARP IV PRN (11:45)
[2022-07-25] MEDS ORDERED: METOCLOPRAMIDE HCL INJ 5 MG/ML 2 ML VIAL IV PRN (11:45)
[2022-07-25] MEDS ORDERED: HYDROmorphone INJ 0.5 MG/0.5 ML SYR IV PRN (11:45)
[2022-07-25] MEDS ORDERED: MAGNESIUM HYDROXIDE SUSP 30 ML UDC PO PRN (11:45)
[2022-07-25] MEDS ORDERED: bisacodyL 10 MG SUPP PR PRN (11:45)
[2022-07-25] MEDS ORDERED: oxyCODONE HCL IR 5 MG TAB (IMMEDIATE RELEASE) PO PRN (11:45)
[2022-07-25] MEDS ORDERED: PHARMACY GLYCEMIC MGMT CONSULT PRN (11:45)
[2022-07-25] MEDS: SODIUM CHLORIDE 0.9% 1000ML 1,000 ML IV SCH ×2 (11:48→21:18)
[2022-07-25] MEDS ORDERED: GLUCOSE 10 TAB/TUBE PO PRN (12:30)
[2022-07-25] MEDS ORDERED: DEXTROSE 50% 50 ML SYRINGE IV PRN (12:30)
[2022-07-25] MEDS ORDERED: GLUCOSE 40% GEL 15 GM TUBE PO PRN (12:30)
[2022-07-25] MEDS ORDERED: GLUCAGON FOR INJ 1 MG VIAL IM PRN (12:30)
[2022-07-25] MEDS ORDERED: CARBOHYDRATES FOR HYPOGLYCEMIA PO PRN (12:30)
[2022-07-25] MEDS ORDERED: LANTUS PER UNIT CHARGE SQ ONE ×2 (12:30→21:00)
[2022-07-25] MEDS: INSULIN ASPART PER UNIT SC SCH ×3 (12:39→21:37)
[2022-07-25] MEDS: KETOROLAC 30 MG/ML VIAL IV SCH ×2 (12:40→17:37)
--- NOTE | 2022-07-25 13:48 | Pharmacy Report ---
Pharmacy Glycemic Short Note 2 - Date of Service July 25, 2022 - Glycemic Short BSG Results (Last 24 hours): 07/25/22 07/25/22 07/25/22 06:57 07:07 10:22 Glucose 180 H POC Glucose 178 H 188 H 07/25/22 12:12 Glucose POC Glucose 220 H OUTPATIENT ANTIDIABETIC REGIMEN: * Glargine 52 units BID * Aspart correctional sliding scale * A1c 7.2% 05/20/22 ASSESSMENT: * Patient admitted post op day #0 for left shoulder arthroplasty, patient received po dexamethasone * Patient's BSG elevated post-op, will give remainder of lantus dose from this am (took 1/2 dose) and start novolog weight based stress of 2 * Scale for PM lantus PLAN FOR INPATIENT GLYCEMIC CONTROL: * Hold outpatient oral diabetes medications * Basal insulin * Lantus 30 units SQ now, scale for PM up to home dose- further dosing to be determined * Bolus insulin * NovoLog per scale ACHS or Q6hrs while NPO * Goal Range: Low 110 mg/dL - High 140 mg/dL * Correction Factor: 15 mg/dL/unit * Nutritional / Prandial insulin per carb ratio of 1 unit per 4 grams CHO consumed
[2022-07-25] MEDS: ACETAMINOPHEN 500 MG TAB PO SCH ×2 (14:39→21:19)
[2022-07-25] MEDS: ceFAZolin 2000MG 2,000 MG/15 ML SYR IV SCH (16:21)
[2022-07-25] MEDS: DOCUSATE SODIUM 100 MG CAP PO SCH (20:16)
[2022-07-25] MEDS ORDERED: ASPIRIN 81 MG ECTAB PO SCH (21:00)
[2022-07-25] MEDS ORDERED: EZETIMIBE 10 MG TABLET PO SCH (21:00)
[2022-07-25] MEDS ORDERED: SENNA 8.6 MG TAB PO SCH (21:00)
[2022-07-26] MEDS: KETOROLAC 30 MG/ML VIAL IV SCH ×2 (00:45→06:11)
[2022-07-26] MEDS: INSULIN ASPART PER UNIT SC SCH ×3 (00:45→08:59)
[2022-07-26] MEDS: ceFAZolin 2000MG 2,000 MG/15 ML SYR IV SCH (00:46)
[2022-07-26] MEDS: ACETAMINOPHEN 500 MG TAB PO SCH (06:11)
[2022-07-26] MEDS ORDERED: LEVOTHYROXINE SODIUM 150 MCG TABLET PO SCH (06:30)
[2022-07-26] MEDS: DOCUSATE SODIUM 100 MG CAP PO SCH (07:57)
--- NOTE | 2022-07-26 08:46 | Orthopedic Progress Note ---
Date of Service July 26, 2022 Assessment & Plan (1) Status post reverse total replacement of left shoulder: Overall is doing very well. Is not having much pain in the left shoulder. He will be seen by physical therapy today for ambulation and range of motion exercises. He can be discharged home later today. He will follow-up with orthopedics in 2 weeks. Subjective Call was seen and examined at bedside this morning. Overall he is doing very well. Is not having any pain in the left shoulder. He was able to get some sleep last night. He has no complaints.. Review of Systems All systems reviewed & are unremarkable except as noted in HPI & below. Physical Exam On physical examination of the left shoulder, the dressing is clean and dry. He has active motion of his hand and his wrist. He still some numbness in his thumb. He is wearing his sling as instructed.. Results & Data Results & Data Laboratory Results . Diagnostic Findings Postoperative x-rays of the left shoulder show the prosthesis to be in anatomic alignment without any evidence of fracture, desiccation, or loosening. PG Care Time/CCT Total # of Minutes Spent Total Time Spent with Patient: Total time spent is greater than 50% in coordination of care (as documented) at patient's floor/unit and/or counseling patient: Coding Level of Care Code 88298 Post Operative Follow-Up Diagnoses Status post reverse total replacement of left shoulder Z96.612
--- NOTE | 2022-07-26 08:47 | Discharge Summary ---
Date of Service July 26, 2022 Admission HPI (Per Admitting) Ethan is a pleasant 61-year-old male who is been doing chronic increasing left shoulder pain. X-rays and clinical examination have been diagnostic for advanced osteoarthritis of the left shoulder. After failing conservative treatment, he has elected proceed with a left reverse shoulder arthroplasty.. Admission Exam (Per Admitting) On physical examination of the left shoulder, he has decreased range of motion and crepitus throughout. He has weakness mostly secondary to pain. Most of his pain is located over the glenohumeral joint line.. Principal Diagnosis Same as "Discharge Diagnosis" noted below under Discharge Instructions. Discharge Exam On physical examination of the left shoulder, the dressing is clean and dry. He has active motion of his hand and his wrist. He still some numbness in his thumb. He is wearing his sling as instructed.. Discharge Data Procedures Performed Operation Date: 06/06/22 11:10 <No data on this case meets the specified criteria> Operation Date: 07/25/22 08:10 Actual Procedures p Left Reverse Total Shoulder Arthroplasty(Left) - Chu Eli DO Ordered Studies 06/06/22 05:00 US - OR guided needle placemen Routine 07/25/22 05:00 US - OR guided needle placemen Routine Hospital Course (1) Status post reverse total replacement of left shoulder: On July 25, 2022 Ethan arrived at [facility] and underwent a left reverse shoulder replacement without complication. He had a general anesthetic and a left interscalene nerve block. Postoperatively he was placed in a sling and transferred to the general orthopedic floors. His hospital course was uneventful. On postop day #1, his vital signs were stable and his pain was well controlled. He was able to participate well with physical therapy doing ambulation and range of motion exercises. He was then discharged home. He will follow-up with orthopedics in 2 weeks. PG Care Time/CCT Total # of Minutes Spent Total Time Spent with Patient: Total time spent is greater than 50% in coordination of care (as documented) at patient's floor/unit and/or counseling patient: Discharge Plan Discharge Items Patient Disposition: Home - Home Health Services Reason For Visit: Degenerative Joint Disease Left Shoulder Discharge Diagnosis: Left reverse shoulder replacement Activity: Per Instructions section Non-emergency contact: Surgeon Call non-emergency contact if: your wound has increased redness and your wound has increased drainage Follow-up/Referrals: Marilyn Fletcher PA-C [Primary Care Provider] - Diet: Regular Addtl Attending Provider Instructions: Activity and Therapy Recommendations: * If you are using [facility] then therapy will be provided at your home until they feel you have accomplished all of your goals. * If you are using [facility] then Physical Therapy will be provided until they feel you are ready to start Outpatient Physical Therapy. * If you are not using home therapy then Outpatient Physical Therapy should start about 3-5 days from your day of surgery. Therapy will last about 8-12 weeks * Wear your sling for 3 weeks, unless otherwise instructed. You may remove your sling to shower and to dress, but otherwise, you should be in your sling at all times, including while sleeping * The shoulder replacement is very stable and you can use your hand while in the sling * You were shown a series of exercises in the hospital. Do these exercises daily including the exercises you were shown in physical therapy. Medications: * Narcotic You will likely be sent home from the hospital with a prescription for the narcotic pain medication that worked best throughout your stay. * Other medications may be prescribed for specific circumstances. If you have any questions, please call the office at . * Resume previous home medications unless otherwise instructed Dressing Care: Leave the Silverlon dressing in place for 7 days. After 7 days you may remove the dressing. If the incision is not draining then you may leave the shari open to air. If there is a little bit of drainage or if the shari are getting stuck on your clothing then cover the incision with a dry dressing. The shari will be removed at your 2 week follow-up appointment. Showering: You may shower with the Silverlon dressing in place. Do not let the shower spray hit the dressing directly. Pat the Silverlon dressing dry. If the dressing becomes wet underneath, then simply remove the dressing. Keep the incision dry until you are 7 days out from the day of surgery. After 7 days you may remove the Silverlon dressing and shower with the shari exposed. Let soapy water run over the shari and pat them dry. Do not scrub or soak the incision. Things To Watch For: * Drainage from the incision site that occurs more than one week after your surgery. * Increased redness at the incision site. * Fever above 102 degrees Fahrenheit. * Unusual chest pain or shortness of breath. * Call [facility] at with any of the above problems Follow-Up Visit: Follow-up with Dr. Eli's PA (Chu Bond) 2-3 weeks after your day of surgery. He will remove your shari and answer any questions. If you have any additional questions or concerns, Dr Eli is usually in the office at the same time and will be available An appointment was probably scheduled when you signed-up for surgery in the office. If you have any questions call More detailed instructions as well as Frequently Asked Questions were provided in a folder by our office when you signed-up for surgery. Please review these instructions when you get home. If you have any further questions or concerns, please feel free to call the office at [phone] Pending Studies at Discharge: No Stand-Alone Forms: My [facility], Smoking Cessation Medications and DC Order Prescriptions: New oxycodone-acetaminophen 5-325 mg tablet 1 tab PO Q6H PRN (Reason: pain) Qty: 30 0RF Continued indapamide 1.25 mg tablet 1.25 mg PO QAM Qty: 90 3RF atenolol 100 mg tablet 100 mg PO QAM Qty: 90 3RF meloxicam 15 mg tablet 15 mg PO QPM Qty: 90 3RF (DME) diabetic supplies, miscellan. Misc See Rx Instructions .Route Qty: 150 5RF Rx Instructions: use QID Thu-; 5 x/day Sat & Sun insulin glargine [Lantus Solostar U-100 Insulin] 100 unit/mL (3 mL) insulin pen 52 unit SUBCUT BID Qty: 90 3RF Rx Instructions: 52 units in AM and 52 units in PM losartan 100 mg tablet 100 mg PO QAM Qty: 90 3RF acetaminophen 500 mg tablet 1,000 mg PO Q8H PRN (Reason: Fever Or Pain) insulin aspart U-100 [Novolog Flexpen U-100 Insulin] 100 unit/mL (3 mL) insulin pen See Rx Instructions .ROUTE .COMPLEX Qty: 15 3RF Dose Instruction: INJECT 4X DAILY NEEDED FOR HIGH BSG MDD: 148U 6U IF BSG 150-199, 9T=164- 249, 78I=092-578, 61A=837-727, 39I=009-228, 18W=023-468, 93C=282-209 Rx Instructions: INJECT 4X DAILY NEEDED FOR HIGH BSG MDD: 148U 6U IF BSG 150-199, 0J=491- 249, 33M=721-017, 67D=088-938, 88R=019-624, 34L=331-736, 56U=596-789 cholecalciferol (vitamin D3) [Vitamin D3] 1,000 unit Capsule 1 dose PO HS glucosamine-chondroitin [Osteo Bi-Flex] 250-200 mg Tablet 1 dose PO BID multivitamin [Multiple Vitamins] Tablet 1 tab PO QAM omega 9-lal-flq-fish oil [Fish Oil] 1,000 mg (120 mg-180 mg) capsule 1 cap PO BID aspirin 81 mg Tablet,Delayed Release (Dr/Ec) 81 mg PO HS Allergy 1 dose PO QAM levothyroxine 150 mcg tablet 150 mcg PO QAM Rx Instructions: TAKE 1 TABLET BY MOUTH EVERY MORNING ezetimibe [Zetia] 10 mg tablet 10 mg PO HS Rx Instructions: TAKE 1 TABLET BY MOUTH AT BEDTIME Discharge Orders: Discharge Order (Routine); Ordered 07/26/22 Ordered By: Chu Eli Admission Data Admit Date/Time: 07/25/22 10:18 Attending Provider: Chu Eli Admit Provider: Chu Eli Primary Care Provider: Marilyn Fletcher
[2022-07-26] MEDS ORDERED: LOSARTAN POTASSIUM 50 MG TAB PO SCH (09:00)
[2022-07-26] MEDS ORDERED: MULTIVITAMIN TAB PO SCH (09:00)
[2022-07-26] MEDS ORDERED: ATENOLOL 50 MG TABLET PO SCH (09:00)
[2022-07-26] MEDS ORDERED: INDAPAMIDE 1.25 MG TAB PO SCH (09:00)
[2022-07-26] MEDS ORDERED: LANTUS PER UNIT CHARGE SQ ONE (09:00)
== END 2022-07-26 11:38 | disposition home health service (06) ==
LOC: 3E 06:30 → ASU 06:30

== ENCOUNTER 2023-09-14 11:03 | Observation (INO) ==
--- NOTE | 2023-08-18 10:14 | PAT Medication Instructions ---
Medication Instructions Date of Service August 18, 2023 Home Medications Medication Instructions Recorded diabetic supplies, miscellan. #150 ea 11/17/22 flash glucose scanning reader #1 ea 11/19/22 (FreeStyle Amanda 2 [place]) meloxicam 15 mg tablet 15 mg PO QPM #90 tabs 12/15/22 atenolol 100 mg tablet 100 mg PO QAM #90 tabs 03/12/23 insulin aspart U-100 100 unit/mL See Rx Instructions .Route 04/27/23 (3 mL) subcutaneous pen (Novolog .COMPLEX #15 SYRINGES FlexPen U-100 Insulin aspart) ezetimibe 10 mg tablet See Rx Instructions .Route 07/06/23 .COMPLEX #90 tabs levothyroxine 150 mcg tablet See Rx Instructions .Route 07/06/23 .COMPLEX #90 tabs losartan 100 mg tablet 100 mg PO QAM #90 tabs 07/06/23 flash glucose sensor (FreeStyle #1 ea 07/09/23 Amanda 2 Sensor kit) tirzepatide 10 mg/0.5 mL 10 mg (0.5 mL) subcut Q7D #2 mL 07/09/23 subcutaneous pen injector (Santounjaro) insulin glargine 100 unit/mL (3 49 unit (0.49 mL) subcut BID #90 mL 08/05/23 mL) subcutaneous pen (Lantus Solostar U-100 Insulin) indapamide 1.25 mg tablet 1.25 mg PO QAM #90 tabs 08/10/23 cholecalciferol (vitamin D3) 25 mcg (1,000 unit) capsule (Vitamin D3) 1 dose PO HS glucosamine-chondroitin 250 mg-200 mg tablet (Osteo Bi-Flex) 1 dose PO BID multivitamin (Multiple Vitamins tablet) 1 tab PO QAM acetaminophen 500 mg tablet 1,000 mg PO BID PRN omega 4-mba-mlh-fish oil 1,000 mg (120 mg-180 mg) capsule (Fish Oil) 1 cap PO BID aspirin 81 mg tablet,delayed release 81 mg PO HS meloxicam 15 mg tablet 15 mg PO QPM atenolol 100 mg tablet 100 mg PO QAM insulin aspart U-100 100 unit/mL (3 mL) subcutaneous pen (Novolog FlexPen U-100 Insulin aspart) See Rx Instructions .Route .COMPLEX ezetimibe 10 mg tablet See Rx Instructions .Route .COMPLEX levothyroxine 150 mcg tablet See Rx Instructions .Route .COMPLEX losartan 100 mg tablet 100 mg PO QAM tirzepatide 10 mg/0.5 mL subcutaneous pen injector (Mounjaro) 10 mg (0.5 mL) subcut Q7D insulin glargine 100 unit/mL (3 mL) subcutaneous pen (Lantus Solostar U-100 Insulin) 49 unit (0.49 mL) subcut BID indapamide 1.25 mg tablet 1.25 mg PO QAM STOP 7 days before surgery tirzepatide 10 mg/0.5 mL subcutaneous pen injector (Mounjaro) 10 mg (0.5 mL) subcut Q7D Continue as directed ezetimibe 10 mg tablet See Rx Instructions .Route .COMPLEX levothyroxine 150 mcg tablet See Rx Instructions .Route .COMPLEX ASK your surgeon for instructions meloxicam 15 mg tablet 15 mg PO QPM indapamide 1.25 mg tablet 1.25 mg PO QAM ASK your prescriber and surgeon aspirin 81 mg tablet,delayed release 81 mg PO HS STOP taking 2 weeks before surgery (or as soon as possible if surgery is within 2 weeks) glucosamine-chondroitin 250 mg-200 mg tablet (Osteo Bi-Flex) 1 dose PO BID omega 6-bhe-pgc-fish oil 1,000 mg (120 mg-180 mg) capsule (Fish Oil) 1 cap PO B ID DO NOT take the morning of surgery multivitamin (Multiple Vitamins tablet) 1 tab PO QAM insulin aspart U-100 100 unit/mL (3 mL) subcutaneous pen (Novolog FlexPen U-100 Insulin aspart) See Rx Instructions .Route .COMPLEX losartan 100 mg tablet 100 mg PO QAM Take morning of surgery With a small sip of water, OTHERWISE NOTHING TO EAT OR DRINK AFTER MIDNIGHT: acetaminophen 500 mg tablet 1,000 mg PO BID PRN(if needed) atenolol 100 mg tablet 100 mg PO QAM Take evening before surgery cholecalciferol (vitamin D3) 25 mcg (1,000 unit) capsule (Vitamin D3) 1 dose PO HS acetaminophen 500 mg tablet 1,000 mg PO BID PRN(if needed) insulin aspart U-100 100 unit/mL (3 mL) subcutaneous pen (Novolog FlexPen U-100 Insulin aspart) See Rx Instructions .Route .COMPLEX insulin glargine 100 unit/mL (3 mL) subcutaneous pen (Lantus Solostar U-100 Insulin) 49 unit (0.49 mL) subcut BID Insulin Dependent Diabetic Patients * Test your blood sugar the morning of surgery * If Blood Sugar is GREATER THAN 150, take HALF of your regular dose of: insulin glargine [Lantus Solostar]. * If Blood Sugar is LESS THAN 150, DO NOT TAKE ANY: insulin glargine [Lantus Solostar]. Other Notes If you have any questions please call us at [phone] or [phone] or [phone] or [phone]
--- NOTE | 2023-08-26 14:53 | Anesthesiology Consultation ---
Date of Service August 26, 2023 Assessment & Plan (1) Encounter for pre-operative examination: - intermittent right hand paresthesias over past month. Case discussed in detail with Dr. Vitale including patient's cervical spinal history. He advised sending FYI to surgeon's office and that otherwise from his standpoint, no evaluation, response or testing would be needed prior to surgery. He advised patient does not need special scheduling considerations regarding intubation given successful glidescope intubation in 2021. Surgeon's office made aware. Ade with surgeon's office advised patient is acceptable to proceed per Dr. Eli. - check BSG am DOS. - left TSA 07/25/22: glidescope #4, ETT 8 + PNB. - difficult intubation: Right TKA (02/25/2013)- Per [facility] anesthesia records: Attempted CSE. Unable to perform with repeated attempts at L3-4, L4-5. Switched to GA. Awake intubation discussed with patient due to physical and agreed upon. Fiberoptic intubation, atraumatic (not definitely noted if done awake or not- pt does not have memory of intubation) per records. > No subsequent general anesthesia records since. Weight at time 400lbs. - Mounjaro instructions: Patient takes on (Thursday). Patient informed at PAT visit to stop 7 days prior to surgery- voiced understanding. Instructed last dose will be: (09/07/23). Patient advised to check with prescriber to see if alternative diabetic management changes recommended while holding Mounjaro and for resumption instructions. If alternative medication is prescribed, patient to call back to PAT to update chart and discuss if any further preop medication instructions needed. - cardiology office visit 05/07/23 [place]: "...Dyslipidemia. Intolerant of statins. Intolerant of PCSK9 inhibitor therapy. No anginal or anginal equivalent type symptoms. Hypertension. Blood pressure today mildly elevated. No signs or symptoms of heart failure or arrhythmia. No cerebrovascular or peripheral vascular complaints. No bleeding complaints on aspirin. Sleep apnea. He declines CPAP therapy...With continued weight loss there may be improvement in his blood pressure as well as lipid control...Follow-up visit with me in 6 months..." - Outpatient joint assessment: Patient is currently scheduled for inpatient pathway. If re-evaluated and patient/surgeon requests outpatient pathway, patient is not candidate for outpatient joint program from anesthesia standpoint. Chart Review Chart Review: Acceptable Risk for Surgery and Patient seen in Pre Admission Testing Teaching & Discussion Pre-Anesthesia Teaching/Discussion Notes: Instructed NPO after midnight before surgery, except medications with 15 cc of water. Medication instructions provided according to the PAT guidelines. History Surgery Operation Date: 09/14/23 09:10 Proposed Procedures p Right Total Shoulder Arthroplasty Oswaldo - Chu Eli, Height/Weight Height: 5 ft 9 in Weight: 169.1 kg Allergies Allergy/AdvReac Type Severity Reaction Status Date / Time tramadol Allergy Severe itching Verified 08/18/23 09:12 cashew nut Allergy Unknown Hives Verified 08/18/23 09:28 dulaglutide [From Trulicity] AdvReac Intermediate Irritability, Verified 05/07/23 14:04 rash sitagliptin [From Januvia] AdvReac Intermediate Constipatio Verified 05/07/23 14:04 n evolocumab AdvReac Unknown Joint Pain Verified 08/18/23 09:28 [From Repatha SureClick] metformin AdvReac Unknown Diarrhea Verified 05/07/23 14:04 mometasone furoate AdvReac Unknown Nose Verified 05/07/23 14:04 bleeds, "dryness" simvastatin AdvReac Unknown Mylagia Verified 05/07/23 14:04 Fabric Softeners Allergy Unknown Skin rash Uncoded 05/07/23 14:04 ("snuggles") Medications Home Medications Medication Instructions Recorded Confirmed Last Taken cholecalciferol (vitamin D3) 25 1 dose PO HS 12/24/18 08/18/23 07/24/22 17:20 mcg (1,000 unit) capsule (Vitamin D3) glucosamine-chondroitin 250 mg-200 1 dose PO BID 12/24/18 08/18/23 07/11/22 mg tablet (Osteo Bi-Flex) multivitamin (Multiple Vitamins 1 tab PO QAM 12/27/18 08/18/23 07/24/22 05:00 tablet) acetaminophen 500 mg tablet 1,000 mg PO BID PRN Fever Or Pain 06/10/19 08/18/23 07/25/22 05:00 omega 8-cby-fap-fish oil 1,000 mg 1 cap PO BID 06/10/19 08/18/23 07/11/22 (120 mg-180 mg) capsule (Fish Oil) aspirin 81 mg tablet,delayed 81 mg PO HS 08/05/20 08/18/23 07/24/22 17:00 release diabetic supplies, miscellan. #150 ea 11/17/22 05/28/23 Unknown flash glucose scanning reader #1 ea 11/19/22 05/28/23 Unknown (FreeStyle Amanda 2 [place]) meloxicam 15 mg tablet 15 mg PO QPM #90 tabs 12/15/22 08/18/23 Unknown atenolol 100 mg tablet 100 mg PO QAM #90 tabs 03/12/23 08/18/23 Unknown insulin aspart U-100 100 unit/mL See Rx Instructions .Route 04/27/23 08/18/23 Unknown (3 mL) subcutaneous pen (Novolog .COMPLEX #15 SYRINGES FlexPen U-100 Insulin aspart) ezetimibe 10 mg tablet See Rx Instructions .Route 07/06/23 08/18/23 Unknown .COMPLEX #90 tabs levothyroxine 150 mcg tablet See Rx Instructions .Route 07/06/23 08/18/23 Unknown .COMPLEX #90 tabs losartan 100 mg tablet 100 mg PO QAM #90 tabs 07/06/23 08/18/23 Unknown flash glucose sensor (FreeStyle #1 ea 07/09/23 Unknown Amanda 2 Sensor kit) tirzepatide 10 mg/0.5 mL 10 mg (0.5 mL) subcut Q7D #2 mL 07/09/23 08/18/23 Unknown subcutaneous pen injector (Mounbreero) insulin glargine 100 unit/mL (3 49 unit (0.49 mL) subcut BID #90 mL 08/05/23 08/18/23 Unknown mL) subcutaneous pen (Lantus Solostar U-100 Insulin) indapamide 1.25 mg tablet 1.25 mg PO QAM #90 tabs 08/10/23 08/18/23 Unknown Additional Notes: Patient was instructed to not take indapamide day of surgery. He verbalized understanding and agreement, denied questions or concerns. Past Medical History Medical History (Updated 08/26/23 @ 15:04 by Zandra Ordonez PA-C) History of difficult intubation difficult intubation: Right TKA (02/25/2013)- Per [facility] anesthesia records: Attempted CSE. Unable to perform with repeated attempts at L3-4, L4-5. Switched to GA. Awake intubation discussed with patient due to physical and agreed upon. Fiberoptic intubation, atraumatic (not definitely noted if done awake or not- pt does not have memory of intubation) per records. > No subsequent general anesthesia records since. Weight at time 400lbs. Hypertension controlled, stable per pt History of COVID-2020- no hosp; resolved Stenosis, cervical spine occasional right hand paresthesias ongoing x month; denies change or worsening today History of colon polyps Anemia Chronic, hgb baseline 12-13 range per chart review Hypothyroidism Morbid (severe) obesity due to excess calories History of kidney stones last renal stone was several yrs ago Acid reflux Rare Diabetes IDDM History of sleep apnea No device High cholesterol Lumbar radiculopathy Patient denies h/o stroke, seizures, heart attack, heart failure, blood clots/DVTs or blood transfusions. Exercise / Class Metabolic Activity II 4-5 Yardwork/Stairs/Walk up hill (denies chest discomfort or shortness of breath with 1 FOS) Past Family History Family History Brother Colon cancer Brother Diabetes Sister Diabetes Other No family history of adverse response to anesthesia Past Surgical History Surgical History (Updated 08/26/23 @ 14:51 by Zandra Ordonez PA-C) Status post reverse total replacement of left shoulder (~06/2022) History of colonoscopy History of right hip replacement Right FAIZAN (01/14/19): SAB at L3-4 (x3 attempts) at [facility] Difficult airway for intubation Right TKA (02/25/2013)- Per [facility] anesthesia records: Attempted CSE. Unable to perform with repeated attempts at L3-4, L4-5. Switched to GA. Awake intubation discussed with patient due to physical and agreed upon. Fiberoptic intubation, atraumatic (not definitely noted if done awake or not- pt does not have memory of intubation) per records. > No subsequent general anesthesia records since. Weight at time 400lbs History of arthroscopy of left knee History of lithotripsy History of carpal tunnel release of both wrists History of total left knee replacement History of total right knee replacement Past Anesthesia History Difficult Airway (see above) and No Family Hx of Anesthesia Complications History of PONV No Hx of PONV and No Hx of Motion Sickness Social History Smoking Status: Never smoker Do You Dip or Chew Tobacco: No Hx Alcohol Use: No Hx Substance Use: No substance use type: does not use Review of Systems Patient denies chest pain, shortness of breath, dyspnea on exertion, fever, chills, cough, wheezing, or palpitations. Physical Exam Vital Signs Vitals BP 133/83 P 55 TEMP 98.1 SP02 96% on RA RESP 17 Physical Patient resting comfortably in chair in no acute distress, alert and oriented, responding appropriately throughout visit Full cervical extension range of motion without pain TMD < 3 finger breadths Mallampati Score 3 Dentition: several caps/crowns, denies chipped or loose teeth, implants or bridges Lungs: normal respiratory effort. Good air movement, clear throughout to auscultation, no adventitious breath sounds Cardiac: regular rate and rhythm, no murmurs noted Carotid arteries: negative bruit bilat Lab Results Anesthesia Preop Results Results Anesthesia Widget: WBC 9.16 K/ul (4.8-10.8) 08/26/23 Hgb 12.2 g/dl (14.0-18.0) L 08/26/23 Hct 37.0 % (42.0-52.0) L 08/26/23 Plt 210 K/uL (130-400) 08/26/23 Na 140 mmol/L (136-145) 08/26/23 K 4.1 mmol/L (3.5-5.1) 08/26/23 Cl 103 mmol/L (98-107) 08/26/23 CO2 29 mmol/L (21-32) 08/26/23 BUN 22 mg/dl (6-23) 08/26/23 Creat 0.99 mg/dl (0.6-1.4) 08/26/23 Glucose Level 108 mg/dl (70-99(Fasting)) H 08/26/23 PT 11.4 Seconds (9.0-12.0) 08/26/23 PTT 28.8 Seconds (21.0-31.0) 08/26/23 INR 1.0 (0.9-1.1) 08/26/23 HA1c 5.9 % (4.5-5.6) H 08/26/23 Blood Type A Positive 08/26/23 Antibody Screen NEGATIVE 08/26/23 Testing Electrocardiogram Date: 08/26/23 Sinus rhythm with 1st degree AV block, rate 62 bpm Incomplete RBBB Chest X-Ray Date: 08/26/23 No acute process. Echocardiogram Date: 03/04/22 EF 55-60% No diastolic dysfunction Moderate cLVH No LV regional wall motion abnormalities Moderate RV dilatation Moderate RA dilatation Mild LA dilatation
[~2023-09-14 11:03] MED LIST changes: -GABAPENTIN 300 MG CAP PO SCH; +GABAPENTIN 600 MG DOSE PO SCH; -Ketorolac (*for OR use only*) 30 MG, dexAMETHasone 4 MG, KETAMINE HCL (**OR use only) 1... INFIL SCH
--- NOTE | 2023-09-14 11:34 | History & Physical Bridge Note ---
Date of Service September 14, 2023 History & Physical Bridge Note I have examined the patient, reviewed the History & Physical and in the interval since the performance of the History & Physical I have noted the following changes of clinical significance: no changes noted
[2023-09-14] MEDS ORDERED: DEXAMETHASONE SOD INJ 4 MG/ML VIAL ONE (11:38)
[2023-09-14] MEDS ORDERED: fentaNYL citrate PF 100 MCG/2 ML VIAL ONE (11:38)
[2023-09-14] MEDS ORDERED: SUCCINYLCHOLINE CHLORIDE 20 MG/ML 10 ML VIAL IV ONE (11:38)
[2023-09-14] MEDS ORDERED: LIDOCAINE 2% 2 ML VIAL/AMP(20MG/ML) INFIL ONE (11:38)
[2023-09-14] MEDS ORDERED: ONDANSETRON INJ 2 MG/ML 2 ML VIAL ONE (11:38)
[2023-09-14] MEDS ORDERED: MIDAZOLAM HCL 1 MG/ML 2ML VIAL ONE (11:38)
[2023-09-14] MEDS ORDERED: PROPOFOL IV EMULSION 10 MG/ML 20 ML VIAL IV ONE (11:38)
[2023-09-14] MEDS ORDERED: ATROPINE SULFATE 0.1 MG/ML 10ML SYR IV PRN (11:48)
[2023-09-14] MEDS ORDERED: ONDANSETRON INJ 2 MG/ML 2 ML VIAL IV PRN ×2 (11:48→16:27)
[2023-09-14] MEDS ORDERED: fentaNYL citrate PF 100 MCG/2 ML VIAL IV PRN (11:48)
[2023-09-14] MEDS ORDERED: ePHEDrine sulfate 50 MG/ML AMP IV PRN (11:48)
[2023-09-14] MEDS ORDERED: ORTHO JOINT ANESTHETIC ONE (12:41)
[2023-09-14] MEDS ORDERED: GLYCOPYRROLATE 0.2 MG/ML VIAL ONE (13:34)
[2023-09-14] MEDS ORDERED: ePHEDrine sulfate 50 MG/5 ML SYR ONE (13:39)
[2023-09-14] MEDS ORDERED: SUGAMMADEX SODIUM 200 MG/2 ML VIAL IV ONE (13:50)
--- NOTE | 2023-09-14 14:15 | Operative Report ---
PG Post Operative Report Pre & Post Diagnosis Operation Date: 09/14/23 12:40 Pre-Op Diagnosis: Degenerative Joint Disease Shoulder Right with tendinopathy long head of the biceps tendon Post-Op Diagnosis: Degenerative Joint Disease Shoulder Right with tendinopathy long head of the biceps tendon I identified the patient and participated in the time-out.: Yes Procedure Operation Date: 09/14/23 12:40 Actual Procedures p Right Reverse Total Shoulder Arthroplasty(Right) with open biceps tenodesis as a distinct and separate procedure (modifier 59)- Chu Eli DO Surgeon Chu Eli DO Simulation Software Engineer Chu Bond PA-C Estimated Blood Loss 250 Findings Consistent with Post-Op Diagnosis Specimens Right humeral head Description of Procedure A CPT code modifier 59: The long head of the biceps tendon was enlarged and inflamed consistent with tendinopathy. A tenodesis was opted. This was a separate and distinct portion of the procedure. For these reasons, a CPT code modifier 59 will be added to this case. Implants used: I used a Biomet Comprehensive reverse total shoulder arthroplasty system with a size 12 press fit micro humeral stem, a +3 offset humeral tray and a +3 retentive humeral bearing, a 25 mm small augment baseplate with a 6.5 mm central screw and superior and inferior locking screws, and a size 40 mm eccentric glenosphere. Ethan arrived at [facility] for the above procedure. He was seen in the preoperative holding area and the operative extremity was identified and signed. He was given a preoperative antibiotic, TXA, and an interscalene nerve block. He was taken back to the operating room, laid on table in supine position, and put under general anesthesia. He was then put into the beachchair position. The shoulder was then prepped and draped in sterile fashion. A timeout was done and the patient and the operative extremity was properly identified. A deltopectoral approach was used. Dissection was taken down through the fascia and the deltoid was retracted laterally and the conjoined tendon was retracted medially. The anterior shoulder was exposed. The biceps groove was opened up and the biceps tendon was examined extensively. The biceps tendon demonstrated enlargement and inflammatory changes consistent with longstanding inflammation in the context of osteoarthritis and cuff arthropathy. The long head of the biceps tendon was then tenodesed to the upper border of the pectoralis major. This was a separate and distinct portion of the procedure. The subscapularis was then directly released off the lesser tuberosity with a peel technique. The inferior capsule was released and the humeral head was dislocated. A canal finding reamer was sent down the center of the humeral canal. Sequential reaming up to a size 12 reamer was done. Off that reamer, a proximal humeral resection guide was placed. The proximal humerus was resected at 135 of inclination and 25 of retroversion. Osteophytes were then removed and the glenoid was exposed. Time was spent doing a complete capsular and labral release. The glenoid guide was then placed in the inferior aspect of the glenoid. A 3.2 mm Steinmann pin was then placed into the glenoid vault at 10 of inclination. The glenoid baseplate was then reamed. The final size 25 mm small augment baseplate was then impacted in the place. A 6.5 mm central screw was then placed followed by superior and inferior locking screws. A 40 mm eccentric glenosphere was then impacted into place. Surrounding soft tissues were then injected with 100 cc an orthopedic pain control cocktail. The proximal humerus was then exposed. Sequential broaching of the humerus up to a size 12 broach was done. Off that broach a +3 offset and +3 retentive humeral tray was trialed. The shoulder was then reduced, brought through a full range of motion, and felt to be stable. The shoulder was then dislocated and the broach was removed. The final size 12 micro press-fit humeral stem was then impacted into place. A +3 retentive humeral bearing was then snapped onto a +3 offset humeral tray. The humeral tray was then impacted onto the humeral stem. The shoulder was once again reduced, brought through a full range of motion, and felt to be stable. The subscapularis was poor quality and retracted. The subscapularis was unable to be repaired. A dilute betadyne lavage was then done for 3 minutes. The joint was then irrigated with normal saline solution. Hemostasis was obtained. The interval was closed with 2-0 Vicryl suture. The skin was then closed with 2-0 Vicryl and shari. A Silverlon dressing was placed and the arm was rested in a regular arm sling. He was then extubated and transferred to a hospital bed. He taken to the postanesthesia care unit in stable condition. He tolerated the procedure well. Chu Bond PA-C, was present for the entire procedure. He was critical for patient positioning, prepping, draping, retraction exposure, wound closure and application of sterile dressing. I attest to the content of the Intraoperative Record and any orders documented therein. Any exceptions are noted below.
--- NOTE | 2023-09-14 15:15 | XRay Report ---
XR shoulder RT min 2V routine CLINICAL HISTORY: Post shoulder surgery COMPARISON STUDY: None. FINDINGS: Status post reverse right total shoulder arthroplasty. Hardware is intact. No fracture or d islocation. Skin shari are in place. IMPRESSION: Status post reverse right total shoulder arthroplasty. No evidence for hardware complica tion. ACT 112: Negative or not required by law. Electronically signed by: Clayton Haddad M.D. 09/14/2023 3:14 PM
--- NOTE | 2023-09-14 15:20 | Anesthesiology Progress Note ---
Date of Service September 14, 2023 Anesthesia Post Procedure Vital Signs Vital Signs: Temp Pulse Pulse Resp BP Pulse Ox O2 Del Method 09/14/23 15:10 36.4 C L 68 14 158/81 H 96 Nasal Cannula 09/14/23 15:00 66 14 163/91 H 94 Oxymask 09/14/23 14:50 72 16 169/92 H 97 Oxymask 09/14/23 14:40 76 18 174/98 H 96 Oxymask 09/14/23 14:31 36.7 C 80 16 180/94 H 95 Oxymask 09/14/23 11:50 36.8 C 60 18 173/86 H 93 Room Air O2 Flow Rate 09/14/23 15:10 2 09/14/23 15:00 2 09/14/23 14:50 5 09/14/23 14:40 10 09/14/23 14:31 10 09/14/23 11:50 Transfer of Care Handoff Completed per policy Notes Mental Status: alert / awake / arousable and participated in evaluation Patient Amnestic to Procedure: Yes Nausea / Vomiting: improving with treatment Pain: adequately controlled Airway Patency, RR, SpO2: stable & adequate BP & HR: stable & adequate Hydration State: stable & adequate Anesthetic Complications: no major complications apparent and Pt Satisfied with anesthetic care
[2023-09-14] MEDS ORDERED: HYDROmorphone INJ 0.5 MG/0.5 ML SYR IV PRN (16:27)
[2023-09-14] MEDS ORDERED: bisacodyL 10 MG SUPP PR PRN (16:27)
[2023-09-14] MEDS ORDERED: NON-FORMULARY MEDICATION (Tirzepatide [Mounjaro] 10 mg/0.5 mL pen injector) SQ SCH (16:27)
[2023-09-14] MEDS ORDERED: MAGNESIUM HYDROXIDE SUSP 30 ML UDC PO PRN (16:27)
[2023-09-14] MEDS ORDERED: oxyCODONE HCL IR 5 MG TAB (IMMEDIATE RELEASE) PO PRN (16:27)
[2023-09-14] MEDS ORDERED: METOCLOPRAMIDE HCL INJ 5 MG/ML 2 ML VIAL IV PRN (16:27)
[2023-09-14] MEDS ORDERED: PHARMACY GLYCEMIC MGMT CONSULT PRN (16:27)
[2023-09-14] MEDS ORDERED: NALOXONE HCL 0.4 MG/1 ML VIAL/CARP IV PRN (16:27)
[2023-09-14] MEDS ORDERED: CARBOHYDRATES FOR HYPOGLYCEMIA PO PRN (17:30)
[2023-09-14] MEDS ORDERED: LANTUS PER UNIT CHARGE SC ONE (17:30)
[2023-09-14] MEDS ORDERED: GLUCOSE 10 TAB/TUBE PO PRN (17:30)
[2023-09-14] MEDS ORDERED: DEXTROSE 50% 50 ML SYRINGE IV PRN (17:30)
[2023-09-14] MEDS ORDERED: GLUCOSE 40% GEL 15 GM TUBE PO PRN (17:30)
[2023-09-14] MEDS ORDERED: GLUCAGON FOR INJ 1 MG VIAL IM PRN (17:30)
[2023-09-14] MEDS: INSULIN ASPART PER UNIT CHARGE SC SCH ×3 (17:38→23:31)
[2023-09-14] MEDS: KETOROLAC 30 MG/ML VIAL IV SCH ×2 (17:39→23:01)
[2023-09-14] MEDS ORDERED: EZETIMIBE 10 MG TAB PO SCH (21:00)
[2023-09-14] MEDS ORDERED: ASPIRIN 81 MG ECTAB PO SCH (21:00)
[2023-09-14] MEDS ORDERED: SENNA 8.6 MG TAB PO SCH (21:00)
[2023-09-14] MEDS: SODIUM CHLORIDE 0.9% 1,000 ML IV SCH (21:03)
[2023-09-14] MEDS: ACETAMINOPHEN 500 MG TAB PO SCH (21:05)
[2023-09-14] MEDS: DOCUSATE SODIUM 100 MG CAP PO SCH (21:08)
[2023-09-14] MEDS: ceFAZolin 2000MG 2,000 MG/15 ML SYR IV SCH (21:11)
[2023-09-15] MEDS: INSULIN ASPART PER UNIT CHARGE SC SCH ×2 (03:57→08:37)
[2023-09-15] MEDS: ceFAZolin 2000MG 2,000 MG/15 ML SYR IV SCH (04:47)
[2023-09-15] MEDS: KETOROLAC 30 MG/ML VIAL IV SCH (04:48)
[2023-09-15] MEDS: ACETAMINOPHEN 500 MG TAB PO SCH (06:30)
[2023-09-15] MEDS ORDERED: LEVOTHYROXINE SODIUM 150 MCG TABLET PO SCH (06:30)
[2023-09-15] MEDS: SODIUM CHLORIDE 0.9% 1,000 ML IV SCH (06:31)
[2023-09-15] MEDS: DOCUSATE SODIUM 100 MG CAP PO SCH (08:36)
[2023-09-15] MEDS ORDERED: INDAPAMIDE 1.25 MG TAB PO SCH (09:00)
[2023-09-15] MEDS ORDERED: ATENOLOL 50 MG TABLET PO SCH (09:00)
[2023-09-15] MEDS ORDERED: MULTIVITAMIN TAB PO SCH (09:00)
[2023-09-15] MEDS ORDERED: LANTUS PER UNIT CHARGE SC SCH (09:00)
[2023-09-15] MEDS ORDERED: LOSARTAN POTASSIUM 50 MG TAB PO SCH (09:00)
--- NOTE | 2023-09-15 09:46 | Orthopedic Progress Note ---
Date of Service September 15, 2023 Assessment & Plan (1) Status post reverse total replacement of right shoulder: Overall, he is doing quite well today with good pain control to the right shoulder. He will be seen by physical therapy later today to work on exercises to the right upper extremity. He may be discharged once seen and evaluated by physical therapy he will follow-up with orthopedics in 2 weeks for postoperative care. Subjective . Ethan was seen and evaluated this morning at bedside resting comfortably in no apparent distress. He is currently in his shoulder immobilizer with good pain control. He has been out of bed and ambulating with no issues. He will be seen by physical therapy later on today. He denies any other concerns today. Review of Systems All systems reviewed & are unremarkable except as noted in HPI & below. Physical Exam . On physical examination of the right shoulder, dressing is in place, clean, dry, intact. Shoulder immobilizer is in place. Active range of motion at the elbow, wrist, and all 5 digits within normal limits. Normal neurological exam of the right upper extremity. +2 radial pulse. Less than 2-second capillary refill. Normal sensation. Neurovascular intact. Results & Data Results & Data Laboratory Results . Diagnostic Findings . Postoperative x-rays of the right shoulder showed prosthesis to be in anatomical alignment with no signs of fracture complication or loosening. PG Care Time/CCT Total # of Minutes Spent Total Time Spent with Patient: Total time spent is greater than 50% in coordination of care (as documented) at patient's floor/unit and/or counseling patient: Coding Level of Care Code 48389 Post Operative Follow-Up Diagnoses Status post reverse total replacement of right shoulder Z96.611
--- NOTE | 2023-09-15 09:48 | Discharge Summary ---
Date of Service September 15, 2023 Principal Diagnosis Same as "Discharge Diagnosis" noted below under Discharge Instructions. Discharge Exam . On physical examination of the right shoulder, dressing is in place, clean, dry, intact. Shoulder immobilizer is in place. Active range of motion at the elbow, wrist, and all 5 digits within normal limits. Normal neurological exam of the right upper extremity. +2 radial pulse. Less than 2-second capillary refill. Normal sensation. Neurovascular intact. Discharge Data Procedures Performed Operation Date: 09/14/23 12:40 Actual Procedures p Right Reverse Total Shoulder Arthroplasty(Right) - Chu Eli DO Ordered Studies 09/14/23 05:00 US - OR guided needle placemen Routine Hospital Course (1) Status post reverse total replacement of right shoulder: On September 14, 2023 Ethan arrived at [facility] and underwent a right reverse total shoulder arthroplasty without complications. He had a general anesthetic. Postoperatively, he was transferred to PACU for immediate postoperative care and then transferred up to the general orthopedic floor in stable condition. His hospital course was uneventful. On postoperative day #1, his vital signs were stable and his pain was well-controlled. He participated well with physical therapy doing range of motion exercises to the right upper extremity with and postoperative criteria. He was then discharged home in stable condition. He will follow-up with orthopedics in 2 weeks for postoperative care. PG Care Time/CCT Total # of Minutes Spent Total Time Spent with Patient: Total time spent is greater than 50% in coordination of care (as documented) at patient's floor/unit and/or counseling patient: Discharge Plan Discharge Items Patient Disposition: Home - Home Health Services Reason For Visit: POST OP Discharge Diagnosis: Right reverse shoulder replacement Activity: As commented below Non-emergency contact: Surgeon Call non-emergency contact if: your wound has increased redness and your wound has increased drainage Follow-up/Referrals: Rito Mcgovern DO [Primary Care Provider] - Diet: Regular Addtl Attending Provider Instructions: Activity and Therapy Recommendations: * If you are using [facility] then therapy will be provided at your home until they feel you have accomplished all of your goals. * If you are using [facility] then Physical Therapy will be provided until they feel you are ready to start Outpatient Physical Therapy. * If you are not using home therapy then Outpatient Physical Therapy should start about 3-5 days from your day of surgery. Therapy will last about 8-12 weeks * Wear your sling for 3 weeks, unless otherwise instructed. You may remove your sling to shower and to dress, but otherwise, you should be in your sling at all times, including while sleeping * The shoulder replacement is very stable and you can use your hand while in the sling * You were shown a series of exercises in the hospital. Do these exercises daily including the exercises you were shown in physical therapy. Medications: * Narcotic You will likely be sent home from the hospital with a prescription for the narcotic pain medication that worked best throughout your stay. * Cefadroxil -take the antibiotic twice a day for 10 days to help prevent infection. * Other medications may be prescribed for specific circumstances. If you have any questions, please call the office at . * Resume previous home medications unless otherwise instructed Dressing Care: Leave the Silverlon dressing in place for 7 days. After 7 days you may remove the dressing. If the incision is not draining then you may leave the shari open to air. If there is a little bit of drainage or if the shari are getting stuck on your clothing then cover the incision with a dry dressing. The shari will be removed at your 2 week follow-up appointment. Showering: You may shower with the Silverlon dressing in place. Do not let the shower spray hit the dressing directly. Pat the Silverlon dressing dry. If the dressing becomes wet underneath, then simply remove the dressing. Keep the incision dry until you are 7 days out from the day of surgery. After 7 days you may remove the Silverlon dressing and shower with the shari exposed. Let soapy water run over the shari and pat them dry. Do not scrub or soak the incision. Things To Watch For: * Drainage from the incision site that occurs more than one week after your surgery. * Increased redness at the incision site. * Fever above 102 degrees Fahrenheit. * Unusual chest pain or shortness of breath. * Call [facility] at with any of the above problems Follow-Up Visit: Follow-up with Dr. Eli's PA (Chu Bond) 2-3 weeks after your day of surgery. He will remove your shari and answer any questions. If you have any additional questions or concerns, Dr Eli is usually in the office at the same time and will be available An appointment was probably scheduled when you signed-up for surgery in the office. If you have any questions call More detailed instructions as well as Frequently Asked Questions were provided in a folder by our office when you signed-up for surgery. Please review these instructions when you get home. If you have any further questions or concerns, please feel free to call the office at [phone] Pending Studies at Discharge: No Stand-Alone Forms: My [facility], Smoking Cessation Medications and DC Order Prescriptions: New oxycodone 5 mg Tablet 5 - 10 mg PO Q6 PRN (Reason: pain) Qty: 30 0RF cefadroxil 500 mg capsule 500 mg PO BID 10 Days Qty: 20 0RF aspirin 81 mg Tablet,Delayed Release (Dr/Ec) 81 mg PO HS Qty: 0 0RF Continued (DME) diabetic supplies, miscellan. Misc See Rx Instructions .Route Qty: 150 5RF Rx Instructions: use QID Thu-; 5 x/day Sat & Sun atenolol 100 mg tablet 100 mg PO QAM Qty: 90 3RF insulin aspart U-100 [Novolog FlexPen U-100 Insulin] 100 unit/mL (3 mL) insulin pen See Rx Instructions .ROUTE .COMPLEX Qty: 15 3RF Dose Instruction: INJECT 4X DAILY NEEDED FOR HIGH BSG MDD: 148U 6U IF BSG 150-199, 7E=254- 249, 13I=382-753, 56J=825-294, 93A=818-256, 37F=410-545, 23B=875-766 Rx Instructions: INJECT 4X DAILY NEEDED FOR HIGH BSG MDD: 148U 6U IF BSG 150-199, 0P=689- 249, 61M=524-744, 73L=135-926, 01N=551-038, 37V=719-795, 91H=638-609 levothyroxine 150 mcg tablet See Rx Instructions .ROUTE .COMPLEX Qty: 90 3RF Dose Instruction: TAKE 1 TABLET BY MOUTH EVERY DAY IN THE MORNING Rx Instructions: TAKE 1 TABLET BY MOUTH EVERY DAY IN THE MORNING losartan 100 mg tablet 100 mg PO QAM Qty: 90 3RF (DME) FreeStyle Amanda 2 Sensor Kit See Rx Instructions .Route Qty: 1 8RF Rx Instructions: As directed insulin glargine [Lantus Solostar U-100 Insulin] 100 unit/mL (3 mL) insulin pen 49 unit SUBCUT BID Qty: 90 3RF Patient Comments: now taking 34 units bid Rx Instructions: 49 units in AM and 49 units in PM indapamide 1.25 mg tablet 1.25 mg PO QAM Qty: 90 3RF Mounjaro 10 mg/0.5 mL pen injector 10 mg subcut Q7D Qty: 2 3RF Patient Comments: mondays (DME) FreeStyle Amanda 2 [place] Misc See Rx Instructions .Route Qty: 1 0RF Rx Instructions: As directed acetaminophen 500 mg tablet 1,000 mg PO BID PRN (Reason: Fever Or Pain) cholecalciferol (vitamin D3) [Vitamin D3] 1,000 unit Capsule 1 dose PO HS glucosamine-chondroitin [Osteo Bi-Flex] 250-200 mg Tablet 1 dose PO BID multivitamin [Multiple Vitamins] Tablet 1 tab PO QAM omega 0-hph-wpj-fish oil [Fish Oil] 1,000 mg (120 mg-180 mg) capsule 1 cap PO BID ezetimibe [Zetia] 10 mg tablet See Rx Instructions .ROUTE .COMPLEX Rx Instructions: TAKE 1 TABLET BY MOUTH EVERYDAY AT BEDTIME Discontinued meloxicam 15 mg tablet 15 mg PO QPM Qty: 90 3RF aspirin 81 mg Tablet,Delayed Release (Dr/Ec) 81 mg PO HS Admission Data Admit Date/Time: 09/14/23 14:32 Attending Provider: Chu Eli Admit Provider: Chu Eli Primary Care Provider: Rito Mcgovern
== END 2023-09-15 11:48 | disposition home health service (06) ==
LOC: ASU 11:03 → 3W 11:03